=== PATIENT | female | born 1935 | race Caucasian/White ===

== ENCOUNTER → 2017-09-14 | Outpatient (CLI) | payer OTHER ==
[~2017-09-14] MED LIST: AGG PO; ALEN70TA4 PO; ANT25 PO; ASPI81TA28 PO; CHOL2000 PO; CYAN100020 PO; ESCI10TA17 PO; EZET10TA47 PO; FERR325T18 PO; FLUT0.15; HYDR-4079 PO; IPRA1AER2 INH; ISOS120T5 PO; LEVO-14 PO; LORA-741 PO; METO-596 PO; NTRGSL/4 UT; OXYB10TA13 PO; PREG1CAP70 PO; PRT40 PO; RANO500T PO; ROPI2TAB6 PO; ROSU20TA PO
[2017-09-14 12:56] LABS: BASO % 0.2 %; BASO ABS # 0.01 K/uL (0-0.2); EOS % 1.6 %; EOS ABS # 0.07 K/uL (0-0.5); HEMATOCRIT 36.7 % (37-47); HEMOGLOBIN 12.1 g/dL (12.0-16.0); IG# 0.01 K/uL (0.00-0.02); LYMPH % 24.6 %; MEAN CELL VOLUME 88.2 fL (80-100); MEAN CORPUSCULAR HEMOGLOBIN 29.1 pg (25-34); MEAN PLATELET VOLUME 11.5 fL (7.4-10.4); MONO % 9.6 %; MONO ABS # 0.43 K/uL (0.11-0.59); NEUT % 63.8 %; NEUT ABS # 2.85 K/uL (1.4-6.5); PLATELET COUNT 105 K/uL (130-400); RED CELL DISTRIBUTION WIDTH CV 15.3 % (11.5-14.5); RED CELL DISTRIBUTION WIDTH SD 49.2 fL (36.4-46.3); WHITE BLOOD COUNT 4.47 K/uL (4.8-10.8)
[2017-09-14 14:40] LABS: ALBUMIN 3.7 gm/dl (3.4-5.0); ALT/SGPT 21 U/L (12-78); AST/SGOT 12 U/L (15-37); BLOOD UREA NITROGEN 16 mg/dl (7-18); CALCIUM 8.9 mg/dl (8.5-10.1); CARBON DIOXIDE 27 mmol/L (21-32); CREATININE 0.94 mg/dl (0.60-1.20); GLUCOSE 102 mg/dl (70-99); POTASSIUM 4.4 mmol/L (3.5-5.1); SODIUM 139 mmol/L (136-145)
[2017-09-14 14:45] LABS: ALKALINE PHOSPHATASE 72 U/L (45-117); CHOLESTEROL 129 mg/dl (0-200); LDL CHOLESTEROL CALCULATED 45 mg/dl; TOTAL PROTEIN 7.3 gm/dl (6.4-8.2)
== END | disposition home or self-care (01) ==
LOC: C.LABMFLN 09:49
PROVIDERS: ATTEND Family Medicine
DX: L03.90 Cellulitis, unspecified (principal); I10 Essential (primary) hypertension; R07.9 Chest pain, unspecified; E55.9 Vitamin D deficiency, unspecified

== ENCOUNTER 2018-08-13 08:53 | Inpatient (IN) ==
--- NOTE | 2018-08-10 10:17 | Anesthesiology Consultation ---
Date of Service August 10, 2018 Assessment & Plan (1) Encounter for pre-operative examination: Plan: - Cardio= 08/06/18= "No anginal symptoms.. no evidence of heart failure.. no significant contraindications.. can proceed with surgery.. will be intermediate risk for cardiac events." - Check coags AM DOS (to be done AM DOS per surgeon as this was not done with preop testing) - HGB 9.1 on 06/2018 labs; not updated prior to surgery by surgeon (no prior labs for comparison; anemia noted per records)- discussed with Dr. Dudley; at anesthesiologist discretion if recheck CBC AM DOS needed. Chart Review Chart Review: Acceptable Risk for Surgery and Patient NOT seen in Pre Admission Testing History Surgery Operation Date: 08/13/18 10:50 Proposed Procedures p Right Carotid Endarterectomy - Chemo Rodriguez MD Height/Weight Height: 5 ft 1 in Weight: 70.307 kg Allergies Allergy/AdvReac Type Severity Reaction Status Date / Time adhesive Allergy Intermediate REDDENED Verified 08/09/18 12:57 AREA, RASH, ITCHY Medications Home Medications Medication Instructions Recorded Confirmed Last Taken aspirin [Aspir-81] 81 mg PO QAM 08/09/18 08/09/18 Unknown cetirizine 10 mg PO HS 08/09/18 08/09/18 Unknown cholecalciferol (vitamin D3) 2,000 unit PO BID 08/09/18 08/09/18 Unknown [Vitamin D3] cyanocobalamin (vitamin B-12) 1,000 mcg PO QAM 08/09/18 08/09/18 Unknown escitalopram oxalate 10 mg PO QAM 08/09/18 08/09/18 Unknown hydrocodone-acetaminophen 1 tab PO Q6H PRN 08/09/18 08/09/18 Unknown ipratropium-albuterol [Combivent 1 puff INHALATION QID 08/09/18 08/09/18 Unknown Respimat] isosorbide mononitrate 120 mg PO QAM 08/09/18 08/09/18 Unknown metoprolol tartrate 100 mg PO BID 08/09/18 08/09/18 Unknown nitroglycerin [Nitrostat] 0.4 mg SUBLINGUAL UD PRN 08/09/18 08/09/18 Unknown pantoprazole 40 mg PO QAM 08/09/18 08/09/18 Unknown pregabalin [Lyrica] 100 mg PO BID 08/09/18 08/09/18 Unknown rosuvastatin 40 mg PO QAM 08/09/18 08/09/18 Unknown Past Medical History Medical History Anemia CAD (coronary artery disease) S/P BMS TO RCA (2000) Carotid artery stenosis REASON FOR PROCEDURE Chronic back pain WITH B/L LE RADICULOPATHY Chronic kidney disease Chronic obstructive pulmonary disease Depression Diverticular disease S/P PARTIAL COLON RESECTION GERD (gastroesophageal reflux disease) Hiatal hernia History of aortic valve disease S/P TAVR (2016)- MARY 1.2CM2 PER 01/2018 ECHO Hyperlipidemia Hypertension Osteoarthritis Pacemaker DUAL CHAMBER IMPLANTED 2000 (? REPLACEMENT ); [employer] LAST PACER CHECK 07/16/18 Transient ischemic attack (TIA) AT LEAST 1+ YEARS AGO Urinary frequency Past Family History Family History Daughter Family history of diabetes mellitus Past Surgical History Surgical History H/O hand surgery RIGHT FINGER CYSTECTOMY History of appendectomy History of cardiac cath BMS TO RCA (2000) PPM IMPLANTED 2000 (? REPLACEMENT ) History of cholecystectomy History of colon resection PARTIAL RESECTION (? 2/2 DIVERTICULAR DISEASE) History of colonoscopy History of esophagogastroduodenoscopy (EGD) History of heart valve replacement TAVR (2016) History of hysterectomy TOTAL Social History Smoking Status: Former smoker Do You Dip or Chew Tobacco: No Smoking End Date: QUIT MANY YRS AGO Hx Substance Use: No substance use type: does not use Testing Electrocardiogram Date: 08/06/18 A-paced rhythm at 68bpm. Chest X-Ray Date: 07/19/18 Findings: + NAD Mild cardiac enlargement. Mild to moderate size hiatal hernia. Echocardiogram Date: 01/28/18 LVEF 66%. No RWMA. S/P TAVR with corevalve prosthetic valve; mean systolic gradient through TAVR 11mmhg. Peak AV velocity through TAVR 2.14m/s. MARY of TAVR 1.2cm2. No RWMA. Moderate LAE. Mild MR. PASP 27mmhg. Mildly increased cLV wall thickness. Grade I DD. Cardiac Catheterization Date: 09/27/16 "Mild luminal irregularities.. no significant disease" (per 07/2018 cardio office visit note- multiple attempts to obtain official report unsuccessful; did obtain 10/23/16 operative report for TAVR). Other Testing CTA carotid= DYLAN 83% stenosis. LICA 50% stesnosis. 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 Pacer check= 07/16/18= [employer]. Mode DDDR. AP 99%. RVP 37%. 28 months battery longevity. "Normal dual chamber pacemaker function. Stable pacing and sensing thresholds. Adequate battery reserve." No parameter changes made Laboratory Results 07/19/18 WBC 4.85 H/H 9.1/28.0 PLATELETS 131 SODIUM 141 POTASSIUM 4.3 CHLORIDE 108 CO2 24 BUN 16 CREATININE 0.85 GLUCOSE 107
--- NOTE | 2018-08-12 20:58 | History & Physical Report ---
Date of Service August 12, 2018 History of Present Illness Primary Care Provider: Favio Chester DO August 05, 2018 Name: UMESH SADLER [facility] [place]: [id number] : 1935 Date of Service: 08/05/2018 Favio Chester DO [address] [place] [address] Chester: CC: here for Right carotid artery stenosis HPI: Today we had the pleasure of seeing Ms. Sadler in our outpatient vascular surgery clinic. As you are aware, she is an 82-year-old female with multiple comorbidities, but found to have bilateral carotid artery disease with a greater stenosis on the right side. She is here for evaluation of that carotid disease. Upon obtaining history, the patient does report an episode approximately 2 weeks ago of left arm weakness and numbness that lasted for approximately 10 minutes and resolved. This sounds like a TIA. The patient reports that over 10 years ago, she believes that she had TIAs, but is unable to describe exactly what symptoms she had or what she had done or if she had anything done for these episodes. The patient at this time denies any vision changes, any droopiness of the face, has a neuropathy in lower extremities bilaterally ROS: a 10 point review of system is neg except for HPI PMH/PSH: CAD s/p stent, Aortic dze s/p TAVR, peripheral neuropathy. HTN FH: mother of stroke SH: denies tobacoo, etoh, or ilicit drug use. PHYSICAL EXAMINATION: The patient is awake, alert, oriented, follows command, does not appear to be in any distress, appears to be mildly anxious regarding this diagnosis and possible treatment. Lungs are clear to auscultation. Cranial nerves 2 through 12 intact. No focal neuro deficits in upper or lower extremities. The patient does have numbness in feet bilaterally. The patient has 5/5 strength bilaterally upper and lower extremities. IMAGING: The patient underwent a duplex ultrasound, which showed a severe stenosis of the right carotid artery 70-99% with moderate stenosis on the left side, 56%. A/P: In summary, Ms. Sadler is an 82-year-old female with a severe right carotid artery stenosis and a possible TIA. At this time, we have offered the patient a right carotid artery endarterectomy , provided that we were able to get some cardiac clearance from her photographic equipment inspector and we will attempt to reach out to her photographic equipment inspector for an evaluation. We have also recommended that she continue on her statin and aspirin. In the meantime, we will also order a CTA of the neck to better evaluate the anatomy of her carotid arteries. The patient was counseled regarding the operation, the risks and the benefits of it and she agreed to the operation and signed the consent in the office. Our next step would be following up with her CTA of the neck and will discuss with cardiology regarding her ability to undergo the operation and we will schedule her for an operation if we are able to based on all the data obtained from the photographic equipment inspector and the CTA. Dr. Chemo Rodriguez evaluated the patient and agrees with this plan. #[id number] I saw and evaluated the patient. Discussed with the resident and agree with the resident's findings and plan as documented in the resident's note. Signature Line Electronic Signature on File CC: Favio Chester, [address] [id number] * Jimmy Nelson MD Author Signature Dt/Tm: 08/05/2018 12:07 PM Resident Division of Vascular Surgery Electronically Reviewed/Signed by: Saskia Pollack Signature Dt/Tm : 08/09/2018 11:14 AM Crisis Manager Pino Romo [facility] [place], [address] [place] [address] LORELEI /JONATHAN Result Type: .Outpt Ltr Date of Service: August 05, 2018 00:00 EST Authorization Status: Final Subject: Outpatient Letter Author or Import Date: MD Omar, Jimmy Henriquez on August 05, 2018 11:25 EST Verified By: MD Rodriguez Eugene J on August 09, 2018 11:14 EST Encounter info: [id number], [facility], Clinic, 08/05/2018 - 08/05/2018 Contributor system: [id number] Allergies Allergy/AdvReac Type Severity Reaction Status Date / Time adhesive Allergy Intermediate REDDENED Verified 08/09/18 12:57 AREA, RASH, ITCHY Home Medications Home Medications Medication Instructions Recorded Confirmed Type aspirin [Aspir-81] 81 mg PO QAM 08/09/18 08/09/18 History cetirizine 10 mg PO HS 08/09/18 08/09/18 History cholecalciferol (vitamin D3) 2,000 unit PO BID 08/09/18 08/09/18 History [Vitamin D3] cyanocobalamin (vitamin B-12) 1,000 mcg PO QAM 08/09/18 08/09/18 History escitalopram oxalate 10 mg PO QAM 08/09/18 08/09/18 History hydrocodone-acetaminophen 1 tab PO Q6H PRN 08/09/18 08/09/18 History ipratropium-albuterol [Combivent 1 puff INHALATION QID 08/09/18 08/09/18 History Respimat] isosorbide mononitrate 120 mg PO QAM 08/09/18 08/09/18 History metoprolol tartrate 100 mg PO BID 08/09/18 08/09/18 History nitroglycerin [Nitrostat] 0.4 mg SUBLINGUAL UD PRN 08/09/18 08/09/18 History pantoprazole 40 mg PO QAM 08/09/18 08/09/18 History pregabalin [Lyrica] 100 mg PO BID 08/09/18 08/09/18 History rosuvastatin 40 mg PO QAM 08/09/18 08/09/18 History Past Med/Surg History Medical History Anemia CAD (coronary artery disease) S/P BMS TO RCA (2000) Carotid artery stenosis REASON FOR PROCEDURE Chronic back pain WITH B/L LE RADICULOPATHY Chronic kidney disease Chronic obstructive pulmonary disease Depression Diverticular disease S/P PARTIAL COLON RESECTION GERD (gastroesophageal reflux disease) Hiatal hernia History of aortic valve disease S/P TAVR (2016)- MARY 1.2CM2 PER 01/2018 ECHO Hyperlipidemia Hypertension Osteoarthritis Pacemaker DUAL CHAMBER IMPLANTED 2000 (? REPLACEMENT ); [employer] LAST PACER CHECK 07/16/18 Transient ischemic attack (TIA) AT LEAST 1+ YEARS AGO Urinary frequency Surgical History H/O hand surgery RIGHT FINGER CYSTECTOMY History of appendectomy History of cardiac cath BMS TO RCA (2000) PPM IMPLANTED 2000 (? REPLACEMENT ) History of cholecystectomy History of colon resection PARTIAL RESECTION (? 2/2 DIVERTICULAR DISEASE) History of colonoscopy History of esophagogastroduodenoscopy (EGD) History of heart valve replacement TAVR (2016) History of hysterectomy TOTAL Family History Daughter Family history of diabetes mellitus Social History Current Living Situation: Alone Other Information That Helps Us Care for You: No Feels Safe at Home: Yes Safety Concerns: Feels Safe At This Time Smoking Status: Former smoker Do You Dip or Chew Tobacco: No Smoking End Date: QUIT MANY YRS AGO Hx Substance Use: No Beliefs That Will Affect Care: None Preferred Language: Citizen Of [place] Communication Ability: Effective Workforce Management Coordinator Required: No
[~2018-08-13 08:53] MED LIST changes: -AGG PO; -ALEN70TA4 PO; -ANT25 PO; -ASPI81TA28 PO; +CEFAZOLIN 1000MG 1,000 MG/7.5 ML SYR IV SCH; -CHOL2000 PO; -CYAN100020 PO; -ESCI10TA17 PO; -EZET10TA47 PO; -FERR325T18 PO; -FLUT0.15; -HYDR-4079 PO; -IPRA1AER2 INH; -ISOS120T5 PO; -LEVO-14 PO; -LORA-741 PO; +LR 15ML/HR IV SCH; -METO-596 PO; -NTRGSL/4 UT; -OXYB10TA13 PO; -PREG1CAP70 PO; -PRT40 PO; -RANO500T PO; -ROPI2TAB6 PO; -ROSU20TA PO
[2018-08-13 10:16] LABS: INR 1.1 (0.9-1.1); Prothrombin Time 11.1 Seconds (9.0-12.0)
[2018-08-13] MEDS ORDERED: PROPOFOL IV EMULSION 10 MG/ML 20 ML VIAL IV ONE (10:33)
[2018-08-13] MEDS ORDERED: PHENYLEPHRINE HCL 10 MG/ML VIAL ONE ×2 (10:33→10:40)
[2018-08-13] MEDS ORDERED: SUCCINYLCHOLINE CHLORIDE 20 MG/ML 10 ML VIAL ONE (10:33)
[2018-08-13] MEDS ORDERED: ePHEDrine sulfate 50 MG/ML AMP ONE (10:33)
[2018-08-13] MEDS ORDERED: GLYCOPYRROLATE 0.2 MG/ML VIAL ONE (10:33)
[2018-08-13] MEDS ORDERED: DEXAMETHASONE SOD INJ 4 MG/ML VIAL ONE (10:33)
[2018-08-13] MEDS ORDERED: LIDOCAINE HCL 2% 2 ML VIAL/AMP(20MG/ML) INFIL ONE (10:33)
[2018-08-13] MEDS ORDERED: ONDANSETRON INJ 2 MG/ML 2 ML VIAL ONE (10:33)
[2018-08-13] MEDS ORDERED: NEOSTIGMINE METHYLSULFATE 5 MG/5 ML SYR ONE (10:33)
[2018-08-13] MEDS ORDERED: fentaNYL citrate 100 MCG/2 ML VIAL ONE ×2 (10:34→13:56)
[2018-08-13] MEDS ORDERED: NITROGLYCERIN 5 MG/ML 10 ML VIAL ONE (10:40)
[2018-08-13] MEDS ORDERED: HEPARIN SOD (PORCINE) 1000 UNIT/ML 10 ML VIAL ONE (10:40)
[2018-08-13] MEDS ORDERED: ATROPINE SULFATE 0.1 MG/ML 10ML SYR IV PRN (11:36)
[2018-08-13] MEDS ORDERED: ePHEDrine sulfate 50 MG/ML AMP IV PRN (11:36)
[2018-08-13] MEDS ORDERED: ONDANSETRON INJ 2 MG/ML 2 ML VIAL IV PRN (11:36)
--- NOTE | 2018-08-13 11:45 | History & Physical Bridge Note ---
Date of Service August 13, 2018 History & Physical Bridge Note I have examined the patient, reviewed the History & Physical and in the interval since the performance of the History & Physical I have noted the following changes of clinical significance: no changes noted
--- NOTE | 2018-08-13 11:46 | History & Physical Bridge Note ---
Date of Service August 13, 2018 History & Physical Bridge Note CTA confirmed a severe right internal carotid artery stenosis. She is now admitted for a right CEA. I have discussed the risks options and benefits of the procedure with the patient. The patient understands the risks options and benefits and agrees to the procedure. I have examined the patient, reviewed the History & Physical and in the interval since the performance of the History & Physical I have noted the following changes of clinical significance: no changes noted
--- NOTE | 2018-08-13 15:36 | Post Operative Brief Note ---
Immediate Post Op Note v1 Date of Surgery August 13, 2018 Pre & Post Diagnosis Operation Date: 08/13/18 10:50 Pre-Op Diagnosis: Right internal carotid artery stenosis Post-Op Diagnosis: Right internal carotid artery stenosis Procedure Operation Date: 08/13/18 10:50 Actual Procedures p Right Carotid Endarterectomy with patch(Right) - Chemo Rodriguez MD Surgeon Chemo Rodriguez MD Time Stamp Assembler Mariam Nelson MD L Minarchick,PAC Estimated Blood Loss 50 Findings Consistent with Post-Op Diagnosis Anesthesia Type General Complications none Disposition Accompanied Patient To Recovery: No Disposition: Recovery Room
[2018-08-13] MEDS ORDERED: THROMBIN 5000 UNITS KIT TOP SCH (15:45)
[2018-08-13] MEDS ORDERED: BUPIVACAINE/EPINEPHRINE 0.5% MPF 1:200,000 10 ML VIAL INFIL ONE (15:51)
[2018-08-13] MEDS ORDERED: HEPARIN SODIUM IV ONE (16:00)
--- NOTE | 2018-08-13 16:08 | Operative Report ---
Post Operative Report Pre & Post Diagnosis Operation Date: 08/13/18 10:50 Pre-Op Diagnosis: Right internal carotid artery stenosis Post-Op Diagnosis: Right internal carotid artery stenosis Procedure Operation Date: 08/13/18 10:50 Actual Procedures p Right Carotid Endarterectomy(Right) - Chemo Rodriguez MD Surgeon Dr. Michael Nelson MD Crate Maker Mariam Nelson MD L Minarchcharlie,PAC Estimated Blood Loss 50 Findings See Below Patient had inflammatory changes around the carotid bulb right side.At the end of the case the patient was neurologically intact. Specimens Right carotid plaque Drains None Anesthesia Type General Complications none Disposition Accompanied Patient To Recovery: Yes Disposition: Recovery Room Indications Symptomatic right carotid artery stenosis. Description of Procedure The patient was brought to the operating room, where an arterial line was placed and general anesthesia was secured. The Right neck was prepped and sterilely draped. An oblique incision was made along the anterior border of the right sternocleidomastoid muscle. The platysma was divided and dissection was carried down to the carotid sheath. The facial vein was doubly ligated and divided exposing the carotid bifurcation. There is significant amount of inflammation at the carotid bulb sharp dissection was carried on. The external carotid was overlying the internal carotid and ligation of the superior thyroid artery was completed to allow us mobilization of the carotid bulb. The bulb was then rotated medially allowing us access to the posterior wall of the carotid artery and bulb. The hypoglossal nerve was identified and protected. The vagus nerve and XII nerve were identified and kept free from dissection and retraction. The internal, external, and common carotid arteries were dissected free proximally and distally. 7000 U of Heparin was given intravenously. The external carotid Was encircled with a vessel loop. Once the heparin was allowed to circulate for approximately 5 minutes, clamps were placed starting with the internal carotid and common carotid and external carotid. An anterior arteriotomy was made on the common carotid artery using an 11 blade. Sexton scissors was used to extend the arteriotomy through the plaque on to the distal soft internal carotid artery. The plaque was heavily calcified, ulcerated, and nearly occlusive. A shunt was then inserted into the into the internal carotid artery and revealed good backbleeding. The proximal end of the shunt was then inserted into the common carotid artery and secured in place. The Doppler attached to the shunt was turned on and revealed good flow through the shunt. A [place] elevator was used to create an endarterectomy plane. The proximal endpoint was created using Sexton scissors as well as a distal endpoint was created with the Sexton scissors. The plaque was freed out of the external carotid artery.With downward retraction on the plaque, a smooth distal endpoint was created. All debris was meticulously debrided from the inside of the lumen and confirmed with instillation of heparinized saline. Once endarterectomy was completed, a Bovine pericardial patch was then cut to the appropriate size and sewn into internal carotid artery using a 6-0 Prolene suture starting at the internal carotid artery corner of the arteriotomy. Before the patch was completed, the shunt was pulled and all the arteries were backbleed extruding any air and debris. The patch was then completed. The external carotid clamp was removed first, followed by the common carotid artery clamp, and finally the internal carotid artery clamp, restoring blood flow to the brain. Patient did have some oozingAt the proximal end of the patch and one 6-0 Prolene sutures were used to achieve hemostasis as well as thrombin soaked gel foam. Meticulous hemostasis was secured. The wound was then closed in multiple layers using 3-0 Vicryl suture then a 4-0 Vicryl subcutaneous layer closing the skin. Local anesthetic was injected in the wound prior to closure. Dermabond was applied over the incision. The patient tolerated the procedure well and was extubated on table. The patient was moving all four extremities to command prior to and upon transfer to the recovery room. Dr. Rodriguez was present and scrubbed for the entirety of the case. I attest to the content of the Intraoperative Record and any orders documented therein. Any exceptions are noted below.
[2018-08-13] MEDS: fentaNYL citrate 100 MCG/2 ML VIAL IV PRN ×4 (16:27→17:07)
--- NOTE | 2018-08-13 17:45 | Anesthesiology Progress Note ---
Date of Service August 13, 2018 Anesthesia Post Procedure Vital Signs Vital Signs: Temp Pulse Pulse Resp BP Pulse Ox 08/13/18 17:40 60 16 108/56 L 95 08/13/18 17:20 62 16 146/68 H 95 08/13/18 17:10 36.9 C 64 16 168/74 H 95 08/13/18 17:00 60 16 172/64 H 94 08/13/18 16:50 60 19 150/75 H 99 08/13/18 16:40 60 19 162/63 H 99 08/13/18 16:30 60 18 118/55 L 99 08/13/18 16:20 60 18 124/52 L 99 08/13/18 16:13 36.1 C L 61 16 133/55 L 99 08/13/18 09:49 36.7 C 62 18 181/89 H 98 Pain Intensity Right Neck: Pain Intensity: 3 Notes Mental Status: alert / awake / arousable and participated in evaluation Patient Amnestic to Procedure: Yes Nausea / Vomiting: adequately controlled Pain: adequately controlled Airway Patency, RR, SpO2: stable & adequate BP & HR: stable & adequate Hydration State: stable & adequate Anesthetic Complications: no major complications apparent and Pt Satisfied with anesthetic care
[2018-08-13] MEDS ORDERED: NITROGLYCERIN SL 0.4 MG/TAB TAB SL PRN (18:02)
[2018-08-13] MEDS: D5W AND 1/2NSS 1,000 ML IV SCH (18:22)
--- NOTE | 2018-08-13 18:46 | Critical Care Consultation ---
Date of Consultation August 13, 2018 Assessment & Plan (1) CAD (coronary artery disease): (2) Carotid stenosis, bilateral: 82yoF with hx of HTN, CAD w/t stent placement, TAVR with prosthetic valve , dual chamber pacemaker - sinoatrial node dysfunction, peripheral neuropathy, and depression admitted to the ICU s/p R carotid endarterectomy with patch by Dr. oRdriguez, 08/13/18. NEURO: alert and oriented Hx of depression and peripheral neuropathy CAM ICU: negative Pain Rx: [place] and morphine prn Continue home lexapro and lyrica CARDIAC/VASCULAR: R ICA stenosis s/p carotid endarterectomy with patch on PMhx: HTN, CAD w/t stent placement, TAVR with prosthetic valve, dual chamber pacemaker - sinoatrial node dysfunction EKG pre-op: 64 atrial paced QTc 411 ECHO 01/28/18: EF 66%. No wall motion abnl, mild concentric LVH, moderate LA enlargement, mild MV regurg CTA neck: R-ICA 83% stenosis, L-ICA <50% stenosis Continue home isosorbide mononitrate, metoprolol, crestor and aspirin Not on anticoagulation per record for prosthetic valve PULM: On 3L NC CXR 07/19/18: no acute abnl, mild cardiac enlargement, mild-moderate hiatal hernia Continue home albuterol 1 puff QID GI: Clear HH diet Continue home vit D, B12 and protonix RENAL/LYTES: BMP 07/19/18 wnl On D51/2NS at 125mls/hr : Wood in place ENDO: No hx of diabetes or thryroid disease HEME: Hx of anemia Hgb 9.1 on 07/19 Coags wnl Repeat CBC ordered ID: No concern for infection at this time Received Ancef during surgery CBC ordered LINES: PIVs x 3 Code Full Dispo: pending clinical improvement (3) Chronic anemia: (4) GERD (gastroesophageal reflux disease): (5) HTN (hypertension): (6) History of TIA (transient ischemic attack): (7) History of pacemaker: (8) Stented coronary artery: (9) Hiatal hernia: History of Present Illness Attending Physician: Chemo Rodriguez MD 82yoF with hx of HTN, CAD w/t stent placement, TAVR with prosthetic valve, dual chamber pacemaker - sinoatrial node dysfunction, peripheral neuropathy admitted to the ICU s/p R carotid endarterectomy with patch by Dr. Rodriguez today. Patient is complaining of neck pain, headache, dizziness and sob at this time. Otherwise denies any cp, n/v, abdominal pain. Allergies Allergy/AdvReac Type Severity Reaction Status Date / Time No Known Allergies Allergy Unverified 08/13/18 09:43 Home Medications Home Medications Medication Instructions Recorded Confirmed Type aspirin [Aspir-81] 81 mg PO QAM 08/09/18 08/13/18 History cetirizine 10 mg PO HS 08/09/18 08/13/18 History cholecalciferol (vitamin D3) 2,000 unit PO BID 08/09/18 08/13/18 History [Vitamin D3] cyanocobalamin (vitamin B-12) 1,000 mcg PO QAM 08/09/18 08/13/18 History escitalopram oxalate 10 mg PO QAM 08/09/18 08/13/18 History hydrocodone-acetaminophen 1 tab PO Q6H PRN 08/09/18 08/13/18 History ipratropium-albuterol [Combivent 1 puff INHALATION QID 08/09/18 08/13/18 History Respimat] isosorbide mononitrate 120 mg PO QAM 08/09/18 08/13/18 History metoprolol tartrate 100 mg PO BID 08/09/18 08/13/18 History nitroglycerin [Nitrostat] 0.4 mg SUBLINGUAL UD PRN 08/09/18 08/13/18 History pantoprazole 40 mg PO QAM 08/09/18 08/13/18 History pregabalin [Lyrica] 100 mg PO BID 08/09/18 08/13/18 History rosuvastatin 40 mg PO QAM 08/09/18 08/13/18 History Patient History Medical History Chronic obstructive pulmonary disease Hyperlipidemia Hypertension Pacemaker DUAL CHAMBER IMPLANTED 2000 (? REPLACEMENT ); [employer] LAST PACER CHECK 07/16/18 Transient ischemic attack (TIA) AT LEAST 1+ YEARS AGO pt states she had the most recent TIA last Depression Diverticular disease S/P PARTIAL COLON RESECTION GERD (gastroesophageal reflux disease) Hiatal hernia Urinary frequency Chronic kidney disease Chronic back pain WITH B/L LE RADICULOPATHY Osteoarthritis Anemia History of aortic valve disease S/P TAVR (2016)- MARY 1.2CM2 PER 01/2018 ECHO CAD (coronary artery disease) S/P BMS TO RCA (2000) Carotid artery stenosis REASON FOR PROCEDURE Surgical History History of cardiac cath BMS TO RCA (2000) PPM IMPLANTED 2000 (? REPLACEMENT ) History of heart valve replacement TAVR (2016) History of appendectomy History of colonoscopy History of esophagogastroduodenoscopy (EGD) H/O hand surgery RIGHT FINGER CYSTECTOMY History of hysterectomy TOTAL History of cholecystectomy History of colon resection PARTIAL RESECTION (? 2/2 DIVERTICULAR DISEASE) Family History Daughter Family history of diabetes mellitus Social History Current Living Situation: Alone Other Information That Helps Us Care for You: No Feels Safe at Home: Yes Safety Concerns: Feels Safe At This Time Smoking Status: Former smoker Do You Dip or Chew Tobacco: No Smoking End Date: QUIT MANY YRS AGO Hx Substance Use: No Beliefs That Will Affect Care: None Preferred Language: Urdu Communication Ability: Effective Mental Health Specialist Required: No Review of Systems As per HPI Physical Exam 2 Vital Signs (Past 24 Hours): Last Vital Signs Temp 36.9 C 08/13/18 17:10 Pulse 60 08/13/18 17:40 Resp 16 08/13/18 17:40 BP 108/56 L 08/13/18 17:40 Pulse Ox 95 08/13/18 17:40 Physical Exam: General: In mild distress due to post op pain Neuro: Alert and oriented x 3 CV: RRR, no m/r/g Pulm: CTAB, equal breath sounds bilaterally Abdomen: +BS, non-distended, non-tender to palpation in all quadrants LE: No LE edema, or calf tenderness to palpation Results & Data Medications Administered Current Inpatient Medications Hydrocodone Bitart/Acetaminophen ([place] 10/325) 1 tab PO Q6H PRN PRN Reason: Pain Stop: 08/27/18 18:01 Albuterol (Combivent Respimat) 1 puffs INH QID [facility] Stop: 09/12/18 18:01 Aspirin (Ecotrin Ectab) 81 mg PO QAM [facility] Stop: 09/13/18 08:59 Cetirizine HCl (Zyrtec) 10 mg PO HS [facility] Stop: 09/12/18 20:59 Cyanocobalamin (Vitamin B-12) 1,000 mcg PO QAM [facility] Stop: 09/13/18 08:59 Escitalopram Oxalate (Lexapro) 10 mg PO QAM [facility] Stop: 09/13/18 08:59 Dextrose/Sodium Chloride (D5w And 1/2nss) 1,000 mls @ 125 mls/hr IV .Q8H [facility] Stop: 09/12/18 18:14 Last Admin: 08/13/18 18:22 Dose: 125 mls/hr Cefazolin Sodium (Ancef 1000mg) 1,000 mg in 7.5 mls @ 2.5 mls/min IV Q8H [facility]; Protocol Stop: 08/14/18 05:02 Isosorbide Mononitrate (Imdur Extended Rel) 120 mg PO QAM [facility] Stop: 09/13/18 08:59 Metoprolol Tartrate (Lopressor) 100 mg PO BID [facility] Stop: 09/12/18 20:59 Morphine Sulfate (Morphine Sulfate) 1 - 4 mg IV Q2H PRN PRN Reason: Severe Pain Stop: 08/27/18 18:01 Nitroglycerin (Nitrostat) 0.4 mg SL UD PRN PRN Reason: Chest Pain Stop: 09/12/18 18:01 Pantoprazole Sodium (Protonix) 40 mg PO QAM [facility] Stop: 09/13/18 08:59 Pregabalin (Lyrica) 100 mg PO BID [facility] Stop: 09/12/18 20:59 Rosuvastatin Calcium (Crestor) 40 mg PO QAM [facility] Stop: 09/13/18 08:59 Thrombin (Recothrom Kit) 1 units TOP ONCE [facility] Stop: 09/12/18 15:44 Last Admin: 08/13/18 15:47 Dose: 1 units Vitamin D (Vitamin D3) 2,000 units PO BID [facility] Stop: 09/12/18 20:59 Resident Activity Tracking Resident Involvement: Resident Care Provided Care Provided: Adult Hospital Medicine
[2018-08-13 19:49] LABS: Hemoglobin 8.3 g/dL (12.0-16.0); Mean Corpuscular Hgb Conc 31.9 g/dL (32-36); Mean Corpuscular Volume 85.5 fL (80-100); RDW Coefficient of Variation 15.8 % (11.5-14.5); RDW Standard Deviation 49.2 fL (36.4-46.3); Red Blood Count 3.04 M/uL (4.2-5.4); White Blood Count 4.93 K/uL (4.8-10.8)
[2018-08-13 20:06] LABS: Calcium 8.3 mg/dl (8.5-10.1); Creatinine Clr Calc Pharmacy 40.2 ml/min; Est GFR (African American) 62.9; Est GFR (Non-African American) 54.3; Potassium 4.4 mmol/L (3.5-5.1)
[2018-08-13 20:17] LABS: Eosinophils # (auto) 0.09 K/uL (0-0.5); Eosinophils % (auto) 1.8 %; Lymphocytes # (auto) 0.95 K/uL (1.2-3.4); Lymphocytes % (auto) 19.3 %; Mean Platelet Volume 11.7 fL (7.4-10.4); Monocytes # (auto) 0.36 K/uL (0.11-0.59); Monocytes % (auto) 7.3 %; Neutrophils # (auto) 3.53 K/uL (1.4-6.5); Neutrophils % (auto) 71.6 %; Platelet Count 94 K/uL (130-400); Polychromasia 1+
[2018-08-13] MEDS: MoRPHine SULFATE 4 MG/ML 1 ML CARP\\VIAL IV PRN ×2 (20:30→23:55)
[2018-08-13] MEDS: CEFAZOLIN 1000MG 1,000 MG/7.5 ML SYR IV SCH (20:32)
[2018-08-13] MEDS: IPRATROPIUM BROMIDE/ALBUTEROL respimat INH INH SCH ×2 (20:33→21:32)
[2018-08-13] MEDS: METOPROLOL TARTRATE 100 MG TAB PO SCH ×2 (20:33→23:49)
[2018-08-13] MEDS: CHOLECALCIFEROL 1,000 UNITS TAB PO SCH (20:34)
[2018-08-13] MEDS: CETIRIZINE HCL 10 MG TABLET PO SCH (20:34)
[2018-08-13] MEDS: PREGABALIN 100 MG CAP PO SCH (20:34)
[2018-08-14] MEDS: MoRPHine SULFATE 4 MG/ML 1 ML CARP\\VIAL IV PRN ×2 (02:30→04:41)
[2018-08-14] MEDS: CEFAZOLIN 1000MG 1,000 MG/7.5 ML SYR IV SCH (04:42)
[2018-08-14 05:05] LABS: Hematocrit (blood only) 28.3 % (37-47); Hemoglobin 8.9 g/dL (12.0-16.0); Mean Corpuscular Hgb Conc 31.4 g/dL (32-36); Mean Corpuscular Volume 85.2 fL (80-100); RDW Coefficient of Variation 16.2 % (11.5-14.5); RDW Standard Deviation 50.8 fL (36.4-46.3); Red Blood Count 3.32 M/uL (4.2-5.4)
[2018-08-14 05:09] LABS: Mean Platelet Volume 11.7 fL (7.4-10.4); Platelet Count 99 K/uL (130-400)
[2018-08-14 05:34] LABS: BUN Creatinine Ratio 11.6 (10-20); Est GFR (African American) 60.6; Est GFR (Non-African American) 52.3; Magnesium 1.6 mg/dl (1.8-2.4); Phosphorus 4.5 mg/dl (2.5-4.9); Potassium 4.6 mmol/L (3.5-5.1)
[2018-08-14] MEDS ORDERED: ACETAMINOPHEN 325 MG TAB PO STA (05:43)
[2018-08-14 05:48] LABS: Eosinophils # (auto) 0.04 K/uL (0-0.5); Immature Granulocytes # (auto) 0.01 K/uL (0.00-0.02); Immature Granulocytes % (auto) 0.3 %; Lymphocytes # (auto) 0.56 K/uL (1.2-3.4); Monocytes % (auto) 7.5 %; Neutrophils # (auto) 3.09 K/uL (1.4-6.5); Neutrophils % (auto) 77.2 %; Ovalocytes 1+; Polychromasia 1+
[2018-08-14] MEDS: D5W AND 1/2NSS 1,000 ML IV SCH ×3 (05:54→18:31)
[2018-08-14] MEDS: IPRATROPIUM BROMIDE/ALBUTEROL respimat INH INH SCH ×4 (07:41→20:46)
[2018-08-14] MEDS: ISOSORBIDE MONO EXTENDED REL 60 MG TABCR PO SCH (07:42)
[2018-08-14] MEDS: ROSUVASTATIN CALCIUM 20 MG TAB PO SCH (07:42)
[2018-08-14] MEDS: ASPIRIN 81 MG ECTAB PO SCH (07:42)
[2018-08-14] MEDS: METOPROLOL TARTRATE 100 MG TAB PO SCH (07:43)
[2018-08-14] MEDS: ESCITALOPRAM OXALATE 10 MG TAB PO SCH (07:43)
[2018-08-14] MEDS: PANTOprazole 40 MG TAB PO SCH (07:43)
[2018-08-14] MEDS: CYANOCOBALAMIN 500 MCG TABLET (VITAMIN B-12) PO SCH (07:43)
[2018-08-14] MEDS: CHOLECALCIFEROL 1,000 UNITS TAB PO SCH ×2 (07:44→20:49)
[2018-08-14] MEDS: PREGABALIN 100 MG CAP PO SCH ×2 (07:45→20:48)
[2018-08-14] MEDS: MAGNESIUM SULFATE / D5W 1 GM/100 ML BAG IV SCH ×2 (07:46→08:59)
--- NOTE | 2018-08-14 08:05 | Critical Care Progress Note ---
Date of Service August 14, 2018 Assessment & Plan (1) CAD (coronary artery disease): (2) Carotid stenosis, bilateral: 82yoF with hx of HTN, HLD, CAD w/t stent placement in RCA in 2000 (per cath in 2011 still patent), TAVR with bioprosthetic valve, dual chamber pacemaker - sinoatrial node dysfunction, chronic anemia, CKD3, GERD, hiatal hernia, peripheral neuropathy, anxiety and depression admitted to the ICU for observation s/p R carotid endarterectomy with patch by Dr. Rodriguez, 08/13/18. NEURO: alert and oriented Hx of depression/anxiety and peripheral neuropathy CAM ICU: negative Pain Rx: [place] and morphine prn Continue home lexapro and lyrica CARDIAC/VASCULAR: R ICA stenosis s/p carotid endarterectomy with patch on - BP improved PMhx: HTN, HLD, CAD w/t stent placement in RCA in 2000 (per cath in 2011 still patent), TAVR with bioprosthetic valve, dual chamber pacemaker - sinoatrial node dysfunction EKG pre-op: 64 atrial paced QTc 411 ECHO 01/28/18: EF 66%. No wall motion abnl, mild concentric LVH, moderate LA enlargement, mild MV regurg CTA neck: R-ICA 83% stenosis, L-ICA <50% stenosis Lipid profile 07/19/18: triglyceride 138, total 147, LDL 79, HDL 40 Continue home isosorbide mononitrate, crestor and aspirin Given hypotensive hold metoprolol evening dose On IVF D51/2NS at 125mls/hr PULM: On 2L NC Not on oxygen at home CXR 07/19/18: no acute abnl, mild cardiac enlargement, mild-moderate hiatal hernia Continue home albuterol 1 puff QID GI: Clear HH diet Continue home vit D, B12 and protonix RENAL/LYTES: PMHx: CKD3 BUN/Cr 11/0.99, GFR 39 Electrolytes: Mag 1.6 - repleted with 2g mag sulfate this AM On D51/2NS at 125mls/hr : No clarke ENDO: No hx of diabetes or thryroid disease HEME: Hx of chronic anemia - possible anemia of chronic disease given hx of CKD vs. iron def (limited work up in the past) Hgb 8.9 (baseline around 9) MCV 85 Folate 39.7 in 09/14/17 B12 1914 in 09/17/15 No iron panel checked per records Plt ct 99 Coags wnl Recommend outpt follow up for further anemia work up Follow CBC ID: No concern for infection at this time. Temp of 38 likely acute post op fever WBC 4 Nasal MRSA negative Received Ancef during surgery Follow CBC LINES: PIVs x 3 Code Full Dispo: per surgeon (3) Chronic anemia: (4) GERD (gastroesophageal reflux disease): (5) HTN (hypertension): (6) History of TIA (transient ischemic attack): (7) History of pacemaker: (8) Stented coronary artery: (9) Hiatal hernia: Supervising Physician Co-Signing Physician Notes Dr. Trimble was resident physician during care of patient. I separately evaluated patient for iqbal portions of the history and the exam. I was present during the critical portion of medical decision making, and I discussed the case with the resident. I generally agree with the findings and plan. Blood pressure improved, dispo per vascular surgery no critical care issues. Subjective This AM pt reports improved MCCARTY/dizziness and nausea. Having some R sided neck pain post surgery. Denies any cp, sob, n/v, abdominal pain, dysuria. Has been able to get up and use the restroom. Febrile to 38 this AM around 5am. HD stable. Diastolic BP occasionally in the 40s range. MAP > 60. HR 60s-70s. Physical Exam 2 Vital Signs (Past 24 Hours): Last Vital Signs Temp 38.0 C H 08/14/18 05:15 Pulse 71 08/14/18 05:30 Resp 13 08/14/18 05:30 BP 118/57 L 08/14/18 04:01 Pulse Ox 94 08/14/18 05:30 Physical Exam: General: In NAD, resting in bed and pleasant Neuro: Alert and oriented x 4 Neck: R sided neck surgical incision site (s/p carotid endarterectomy with patch ) - ecchymotic with moderate edema, soft and mildly TTP CV: RRR, no m/r/g Pulm: CTAB, equal breath sounds bilaterally Abdomen: +BS, non-distended, non-tender to palpation in all quadrants LE: No LE edema, or calf tenderness to palpation Results & Data Laboratory Results Abnormal lab results 08/13/18 08/13/18 08/14/18 Range/Units 19:40 19:40 04:41 WBC 4.00 L (4.8-10.8) K/uL RBC 3.04 L 3.32 L (4.2-5.4) M/uL Hgb 8.3 L 8.9 L (12.0-16.0) g/dL Hct 26.0 L 28.3 L (37-47) % MCHC 31.9 L 31.4 L (32-36) g/dL RDW Std Deviation 49.2 H 50.8 H (36.4-46.3) fL RDW Coeff of Beatriz 15.8 H 16.2 H (11.5-14.5) % Plt Count 94 L 99 L (130-400) K/uL MPV 11.7 H 11.7 H (7.4-10.4) fL Lymph # (Auto) 0.95 L 0.56 L (1.2-3.4) K/uL Chloride 111 H (98-107) mmol/L Glucose 141 H (70-99) mg/dl Calcium 8.3 L (8.5-10.1) mg/dl Magnesium (1.8-2.4) mg/dl 08/14/18 Range/Units 04:41 WBC (4.8-10.8) K/uL RBC (4.2-5.4) M/uL Hgb (12.0-16.0) g/dL Hct (37-47) % MCHC (32-36) g/dL RDW Std Deviation (36.4-46.3) fL RDW Coeff of Beatriz (11.5-14.5) % Plt Count (130-400) K/uL MPV (7.4-10.4) fL Lymph # (Auto) (1.2-3.4) K/uL Chloride 109 H (98-107) mmol/L Glucose 128 H (70-99) mg/dl Calcium 8.0 L (8.5-10.1) mg/dl Magnesium 1.6 L (1.8-2.4) mg/dl Medications Administered Current Inpatient Medications Hydrocodone Bitart/Acetaminophen ([place] 10/325) 1 tab PO Q6H PRN PRN Reason: Pain Stop: 08/27/18 18:01 Albuterol (Combivent Respimat) 1 puffs INH QID [facility] Stop: 09/12/18 18:01 Last Admin: 08/14/18 07:41 Dose: 1 puffs Aspirin (Ecotrin Ectab) 81 mg PO QAM [facility] Stop: 09/13/18 08:59 Last Admin: 08/14/18 07:42 Dose: 81 mg Cetirizine HCl (Zyrtec) 10 mg PO HS [facility] Stop: 09/12/18 20:59 Last Admin: 08/13/18 20:34 Dose: Not Given Cyanocobalamin (Vitamin B-12) 1,000 mcg [facility] [place] [place] Stop: 09/13/18 08:59 Last Admin: 08/14/18 07:43 Dose: 1,000 mcg Escitalopram Oxalate (Lexapro) 10 mg PO [facility] Stop: 09/13/18 08:59 Last Admin: 08/14/18 07:43 Dose: 10 mg Dextrose/Sodium Chloride (D5w And 1/2nss) 1,000 mls @ 125 mls/hr IV .Q8H [facility] Stop: 09/12/18 18:14 Last Admin: 08/14/18 05:54 Dose: Not Given Magnesium Sulfate/Dextrose (Magnesium Sulfate / D5w) 1 gm in 100 mls @ 100 mls/ hr IV Q1H [facility] Stop: 08/14/18 09:44 Last Admin: 08/14/18 07:46 Dose: 100 mls/hr Isosorbide Mononitrate (Imdur Extended Rel) 120 mg PO [facility] Stop: 09/13/18 08:59 Last Admin: 08/14/18 07:42 Dose: 120 mg Metoprolol Tartrate (Lopressor) 100 mg PO BID [facility] Stop: 09/12/18 20:59 Last Admin: 08/14/18 07:43 Dose: 100 mg Morphine Sulfate (Morphine Sulfate) 1 - 4 mg IV Q2H PRN PRN Reason: Severe Pain Stop: 08/27/18 18:01 Last Admin: 08/14/18 04:41 Dose: 4 mg Nitroglycerin (Nitrostat) 0.4 mg SL UD PRN PRN Reason: Chest Pain Stop: 09/12/18 18:01 Pantoprazole Sodium (Protonix) 40 mg PO [facility] Stop: 09/13/18 08:59 Last Admin: 08/14/18 07:43 Dose: 40 mg Pregabalin (Lyrica) 100 mg PO BID [facility] Stop: 09/12/18 20:59 Last Admin: 08/14/18 07:45 Dose: 100 mg Rosuvastatin Calcium (Crestor) 40 mg PO QAM [facility] Stop: 09/13/18 08:59 Last Admin: 08/14/18 07:42 Dose: 40 mg Thrombin (Recothrom Kit) 1 units TOP ONCE [facility] Stop: 09/12/18 15:44 Last Admin: 08/13/18 15:47 Dose: 1 units Vitamin D (Vitamin D3) 2,000 units PO BID [facility] Stop: 09/12/18 20:59 Last Admin: 08/14/18 07:44 Dose: 2,000 units Resident Activity Tracking Resident Involvement: Resident Care Provided Care Provided: Adult Hospital Medicine
--- NOTE | 2018-08-14 08:33 | Anesthesiology Progress Note ---
Date of Service August 14, 2018 Anesthesia Post Procedure Vital Signs Vital Signs: Temp Pulse Pulse Pulse Resp BP BP 08/14/18 08:02 37.6 C H 69 27 H 96/42 L 08/14/18 08:00 69 22 08/14/18 07:30 67 13 08/14/18 07:01 67 18 95/43 L 08/14/18 07:00 66 16 08/14/18 05:30 71 13 08/14/18 05:15 38.0 C H 73 14 08/14/18 05:00 72 15 08/14/18 04:45 75 12 08/14/18 04:30 65 15 08/14/18 04:15 67 13 08/14/18 04:01 66 15 118/57 L 08/14/18 04:00 66 15 08/14/18 03:45 61 10 L 08/14/18 03:30 65 17 08/14/18 03:15 67 15 08/14/18 03:01 61 15 100/43 L 08/14/18 03:00 63 10 L 08/14/18 02:45 61 14 08/14/18 02:30 79 25 H 08/14/18 02:15 60 20 08/14/18 02:01 60 11 L 129/48 L 08/14/18 02:00 60 12 08/14/18 01:45 60 14 08/14/18 01:30 67 12 08/14/18 01:15 60 15 08/14/18 01:01 60 9 L 109/52 L 08/14/18 01:00 62 14 08/14/18 00:45 60 12 08/14/18 00:30 60 8 L 08/14/18 00:16 68 19 168/72 H 08/14/18 00:15 37.2 C 68 18 08/14/18 00:00 60 16 08/13/18 23:45 60 14 08/13/18 23:30 60 13 08/13/18 23:15 60 17 08/13/18 23:01 60 12 144/52 H 08/13/18 23:00 60 13 08/13/18 22:45 60 10 L 08/13/18 22:30 60 13 08/13/18 22:15 60 12 08/13/18 22:01 61 10 L 117/47 L 08/13/18 22:00 63 10 L 08/13/18 21:45 60 12 08/13/18 21:30 60 15 08/13/18 21:15 60 13 08/13/18 21:01 60 13 130/46 L 08/13/18 21:00 60 12 08/13/18 20:45 63 16 08/13/18 20:30 60 15 08/13/18 20:15 60 14 08/13/18 20:01 60 12 108/46 L 08/13/18 20:00 36.5 C 60 13 08/13/18 19:45 60 12 08/13/18 19:30 60 12 08/13/18 19:15 60 14 08/13/18 19:01 62 12 125/52 L 08/13/18 19:00 62 13 125/52 L 08/13/18 18:45 60 12 08/13/18 18:30 60 14 08/13/18 18:15 60 9 L 08/13/18 18:00 37 C 60 16 143/54 H 08/13/18 17:40 60 16 108/56 L 08/13/18 17:20 62 16 146/68 H 08/13/18 17:10 36.9 C 64 16 168/74 H 08/13/18 17:00 60 16 172/64 H 08/13/18 16:50 60 19 150/75 H 08/13/18 16:40 60 19 162/63 H 08/13/18 16:30 60 18 118/55 L 08/13/18 16:20 60 18 124/52 L 08/13/18 16:13 36.1 C L 61 16 133/55 L 08/13/18 09:49 36.7 C 62 18 181/89 H Pulse Ox 08/14/18 08:02 94 08/14/18 08:00 97 08/14/18 07:30 94 08/14/18 07:01 93 08/14/18 07:00 94 08/14/18 05:30 94 08/14/18 05:15 96 08/14/18 05:00 97 08/14/18 04:45 95 08/14/18 04:30 92 08/14/18 04:15 93 08/14/18 04:01 94 08/14/18 04:00 94 08/14/18 03:45 96 08/14/18 03:30 96 08/14/18 03:15 94 08/14/18 03:01 96 08/14/18 03:00 94 08/14/18 02:45 96 08/14/18 02:30 95 08/14/18 02:15 96 08/14/18 02:01 96 08/14/18 02:00 96 08/14/18 01:45 96 08/14/18 01:30 95 08/14/18 01:15 95 08/14/18 01:01 94 08/14/18 01:00 93 08/14/18 00:45 95 08/14/18 00:30 93 08/14/18 00:16 95 08/14/18 00:15 95 08/14/18 00:00 97 08/13/18 23:45 97 08/13/18 23:30 96 08/13/18 23:15 97 08/13/18 23:01 96 08/13/18 23:00 97 08/13/18 22:45 95 08/13/18 22:30 95 08/13/18 22:15 96 08/13/18 22:01 95 08/13/18 22:00 95 08/13/18 21:45 95 08/13/18 21:30 95 08/13/18 21:15 95 08/13/18 21:01 96 08/13/18 21:00 97 08/13/18 20:45 98 08/13/18 20:30 98 08/13/18 20:15 96 08/13/18 20:01 94 08/13/18 20:00 96 08/13/18 19:45 97 08/13/18 19:30 95 08/13/18 19:15 96 08/13/18 19:01 94 08/13/18 19:00 93 08/13/18 18:45 94 08/13/18 18:30 98 08/13/18 18:15 94 08/13/18 18:00 94 08/13/18 17:40 95 08/13/18 17:20 95 08/13/18 17:10 95 08/13/18 17:00 94 08/13/18 16:50 99 08/13/18 16:40 99 08/13/18 16:30 99 08/13/18 16:20 99 08/13/18 16:13 99 08/13/18 09:49 98 Notes Mental Status: alert / awake / arousable Patient Amnestic to Procedure: Yes Nausea / Vomiting: adequately controlled Pain: adequately controlled Airway Patency, RR, SpO2: stable & adequate BP & HR: stable & adequate Hydration State: stable & adequate Anesthetic Complications: no major complications apparent and Pt Satisfied with anesthetic care
--- NOTE | 2018-08-14 10:06 | Surgery Progress Note ---
Date of Service August 14, 2018 Assessment & Plan (1) S/P carotid endarterectomy: Other than her desaturation when off oxygen this patient is doing well postop carotid in neurectomy. We will transfer to the PCU for observation due to her hypoxia off oxygen. Subjective This is a postoperative day 1. This patient is complaining of slight pain in the right side of her neck along the incision line. She denies any swallowing difficulty. She denies any focal neurological deficits. Physical Exam 2 Vital Signs (Past 24 Hours): Last Vital Signs Temp 37.6 C H 08/14/18 08:02 Pulse 69 08/14/18 08:02 Resp 27 H 08/14/18 08:02 BP 96/42 L 08/14/18 08:02 Pulse Ox 94 08/14/18 08:02 On exam she is awake and alert. Vital signs are as above. Neck incision is dry and clean there is mild ecchymosis and mild swelling in the right-sided neck. Neurologic exam shows no focal deficits. She has good motor strength and sensation. Her tongue is midline. She does have a problem with low oxygen saturations when off oxygen.
[2018-08-14] MEDS: HYDROCODONE/ACETAMINOPHEN 10/325 TAB PO PRN ×2 (15:27→20:48)
[2018-08-14] MEDS: CETIRIZINE HCL 10 MG TABLET PO SCH (20:48)
[2018-08-15] MEDS: D5W AND 1/2NSS 1,000 ML IV SCH (02:31)
[2018-08-15 06:51] LABS: Hematocrit (blood only) 24.5 % (37-47); Hemoglobin 7.9 g/dL (12.0-16.0); Mean Corpuscular Hgb Conc 32.2 g/dL (32-36); Mean Corpuscular Volume 84.5 fL (80-100); RDW Coefficient of Variation 16.4 % (11.5-14.5); RDW Standard Deviation 51.1 fL (36.4-46.3); White Blood Count 3.07 K/uL (4.8-10.8)
[2018-08-15 07:14] LABS: Mean Platelet Volume 11.8 fL (7.4-10.4); Platelet Count 78 K/uL (130-400)
[2018-08-15 07:15] LABS: Eosinophils # (auto) 0.02 K/uL (0-0.5); Eosinophils % (auto) 0.7 %; Immature Granulocytes # (auto) 0.01 K/uL (0.00-0.02); Immature Granulocytes % (auto) 0.3 %; Lymphocytes # (auto) 0.79 K/uL (1.2-3.4); Lymphocytes % (auto) 25.7 %; Monocytes # (auto) 0.37 K/uL (0.11-0.59); Monocytes % (auto) 12.1 %; Neutrophils # (auto) 1.88 K/uL (1.4-6.5); Neutrophils % (auto) 61.2 %
[2018-08-15 07:53] LABS: Calcium 7.4 mg/dl (8.5-10.1); Creatinine Clr Calc Pharmacy 41.8 ml/min; Est GFR (African American) 64.6; Est GFR (Non-African American) 55.7; Magnesium 1.9 mg/dl (1.8-2.4); Potassium 3.9 mmol/L (3.5-5.1)
[2018-08-15] MEDS ORDERED: FUROSEMIDE 40 MG/4 ML VIAL IV ONE (07:57)
[2018-08-15] MEDS: HYDROCODONE/ACETAMINOPHEN 10/325 TAB PO PRN (07:59)
[2018-08-15] MEDS: CYANOCOBALAMIN 500 MCG TABLET (VITAMIN B-12) PO SCH (08:00)
[2018-08-15] MEDS: CHOLECALCIFEROL 1,000 UNITS TAB PO SCH ×2 (08:00→19:46)
[2018-08-15] MEDS: ISOSORBIDE MONO EXTENDED REL 60 MG TABCR PO SCH (08:00)
[2018-08-15] MEDS: PREGABALIN 100 MG CAP PO SCH ×2 (08:00→19:45)
[2018-08-15] MEDS: ROSUVASTATIN CALCIUM 20 MG TAB PO SCH (08:01)
[2018-08-15] MEDS: PANTOprazole 40 MG TAB PO SCH (08:01)
[2018-08-15] MEDS: ESCITALOPRAM OXALATE 10 MG TAB PO SCH (08:01)
[2018-08-15] MEDS: IPRATROPIUM BROMIDE/ALBUTEROL respimat INH INH SCH ×4 (08:01→19:45)
[2018-08-15] MEDS: ASPIRIN 81 MG ECTAB PO SCH (08:02)
[2018-08-15] MEDS ORDERED: FUROSEMIDE 40 MG in SYRINGE 0 ML IV ONE (08:15)
[2018-08-15] MEDS ORDERED: ONDANSETRON INJ 2 MG/ML 2 ML VIAL IV PRN (09:15)
--- NOTE | 2018-08-15 09:23 | Surgery Progress Note ---
Date of Service August 15, 2018 Assessment & Plan (1) S/P carotid endarterectomy: The endarterectomy site looks good. Incision is healed well. (2) Postoperative hypoxia: Patient was placed on a Ventimask. She was given 40 of Lasix IV. We will obtain a chest x-ray. Troponins are also ordered. Subjective This is a postoperative day 2. Patient was complaining of shortness of breath this a.m. She required Ventimask to raise her sats in the 90s. At this point she is still slightly short of breath but no distress. Her sats are in the mid 90s at this point in time. She has had fluid running since yesterday although she was eating.She denies any chest pain. Physical Exam 2 Vital Signs (Past 24 Hours): Last Vital Signs Temp 37.7 C H 08/15/18 07:32 Pulse 73 08/15/18 07:32 Resp 18 08/15/18 07:32 BP 199/64 H 08/15/18 07:32 Pulse Ox 91 08/15/18 07:32 On exam she is awake and alert. Vital signs are stable she is slightly hypertensive. Her neck is ecchymotic and slightly edematous but no changes since yesterday. The trachea is midline. She has no neurological deficits. Her tongue is midline she has no swallowing difficulties. She does have a few crackles in the base of her lungs and decreased inspiratory effect.
--- NOTE | 2018-08-15 10:26 | XRay Report ---
XR chest 1V portable CLINICAL HISTORY: Shortness of breath COMPARISON STUDY: None FINDINGS: The heart is enlarged. There is a left subclavian dual-chamber central venous pacemaker. Th ere is a retrocardiac opacity consistent with a hiatal hernia. There is no lobar consolidation. There is mild vascular prominence. An element of mild pulmonary vascular congestion cannot be excluded. Th ere are no large pleural effusions[ IMPRESSION: 1. Cardiomegaly. 2. Moderate to large hiatal hernia 3. No evidence of focal pulmonary consolidation 4. Equivocal mild pulmonary vascular congestion Electronically signed by: Christophe Babb M.D. 08/15/2018 10:24 AM
[2018-08-15] MEDS: CETIRIZINE HCL 10 MG TABLET PO SCH (19:46)
[2018-08-16] MEDS: IPRATROPIUM BROMIDE/ALBUTEROL respimat INH INH SCH ×4 (08:19→20:55)
[2018-08-16] MEDS: CHOLECALCIFEROL 1,000 UNITS TAB PO SCH ×2 (08:21→20:56)
[2018-08-16] MEDS: PANTOprazole 40 MG TAB PO SCH (08:21)
[2018-08-16] MEDS: ASPIRIN 81 MG ECTAB PO SCH (08:21)
[2018-08-16] MEDS: CYANOCOBALAMIN 500 MCG TABLET (VITAMIN B-12) PO SCH (08:21)
[2018-08-16] MEDS: ISOSORBIDE MONO EXTENDED REL 60 MG TABCR PO SCH (08:21)
[2018-08-16] MEDS: ESCITALOPRAM OXALATE 10 MG TAB PO SCH (08:21)
[2018-08-16] MEDS: ROSUVASTATIN CALCIUM 20 MG TAB PO SCH (08:21)
[2018-08-16] MEDS: PREGABALIN 100 MG CAP PO SCH ×2 (08:26→20:56)
--- NOTE | 2018-08-16 08:36 | Anesthesiology Progress Note ---
Date of Service August 16, 2018 Anesthesia Post Procedure Vital Signs Vital Signs: Temp Pulse Pulse Resp BP BP Pulse Ox 08/16/18 07:10 37.4 C 69 19 151/66 H 95 08/16/18 03:47 36.9 C 73 18 147/69 H 96 08/16/18 00:00 73 08/15/18 23:50 37.5 C 80 16 147/65 H 94 08/15/18 18:57 37.2 C 72 22 131/68 100 08/15/18 16:00 66 08/15/18 15:33 36.9 C 79 26 H 108/62 98 08/15/18 11:05 36.8 C 60 18 94/59 L 98 Notes Mental Status: alert / awake / arousable and participated in evaluation Nausea / Vomiting: adequately controlled Pain: adequately controlled Airway Patency, RR, SpO2: stable & adequate BP & HR: stable & adequate Hydration State: stable & adequate
--- NOTE | 2018-08-16 09:12 | Surgery Progress Note ---
Date of Service August 16, 2018 Assessment & Plan (1) S/P carotid endarterectomy: Pt improving post op. Will have pt eval by PT/OT today. D/C hydrocodone. Present on Admission?: No (2) Carotid stenosis, bilateral: now s/p R CEA Present on Admission?: Yes (3) Acute blood loss as cause of postoperative anemia: Will follow hgb. D/C on iron supplementation Subjective 82 yo f POD #3 after R CEA d/t severe stenosis, seen in f/u today. Pt admits pain in R neck. Admits unsteadiness when walking and fatigue. Denies MCCARTY, chest pain, SOB, abd pain, N/V, other complaints. Per staff, pt unsteady when walking and slept most of the day yesterday after taking hydrocodone. Remains on O2 via NC at 2L with sats in mid 90's. Per pt, never used oxgen at home prior to admission. Physical Exam 2 Vital Signs (Past 24 Hours): Last Vital Signs Temp 37.4 C 08/16/18 07:10 Pulse 69 08/16/18 07:10 Resp 19 08/16/18 07:10 BP 151/66 H 08/16/18 07:10 Pulse Ox 95 08/16/18 07:10 Constitutional: WD/WN, vitals as above Neck: trachea midline (R neck incision C/D/I with dermabond. + local hematoma with softer ecchymosis anterior, posterior, and inferior to wound. + tenderness. 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
[2018-08-16] MEDS: ACETAMINOPHEN 325 MG TAB PO PRN ×2 (10:14→19:32)
[2018-08-16] MEDS ORDERED: FUROSEMIDE 20 MG in SYRINGE 0 ML IV ONE (11:22)
[2018-08-16] MEDS: ENOXAPARIN INJ 40 MG/0.4 ML SYR SQ SCH ×2 (14:07→22:30)
[2018-08-16] MEDS: FERROUS SULFATE 325 MG TAB PO SCH (17:39)
[2018-08-16] MEDS: DOCUSATE SODIUM 100 MG CAP PO SCH (20:54)
[2018-08-16] MEDS: CETIRIZINE HCL 10 MG TABLET PO SCH (20:57)
[2018-08-17 07:09] LABS: Hematocrit (blood only) 26.8 % (37-47); Hemoglobin 8.6 g/dL (12.0-16.0)
[2018-08-17] MEDS: FERROUS SULFATE 325 MG TAB PO SCH (08:23)
[2018-08-17] MEDS: IPRATROPIUM BROMIDE/ALBUTEROL respimat INH INH SCH ×2 (08:23→12:30)
[2018-08-17] MEDS: CHOLECALCIFEROL 1,000 UNITS TAB PO SCH (08:23)
[2018-08-17] MEDS: ASPIRIN 81 MG ECTAB PO SCH (08:23)
[2018-08-17] MEDS: PANTOprazole 40 MG TAB PO SCH (08:24)
[2018-08-17] MEDS: ESCITALOPRAM OXALATE 10 MG TAB PO SCH (08:24)
[2018-08-17] MEDS: CYANOCOBALAMIN 500 MCG TABLET (VITAMIN B-12) PO SCH (08:24)
[2018-08-17] MEDS: ISOSORBIDE MONO EXTENDED REL 60 MG TABCR PO SCH (08:24)
[2018-08-17] MEDS: DOCUSATE SODIUM 100 MG CAP PO SCH (08:25)
[2018-08-17] MEDS: PREGABALIN 100 MG CAP PO SCH (08:31)
[2018-08-17] MEDS: ENOXAPARIN INJ 40 MG/0.4 ML SYR SQ SCH (11:41)
[2018-08-17] MEDS: ROSUVASTATIN CALCIUM 20 MG TAB PO SCH (11:42)
--- NOTE | 2018-08-17 12:32 | Surgery Progress Note ---
Date of Service August 17, 2018 Assessment & Plan (1) S/P carotid endarterectomy: Pt doing well post op. OK for d/c home today. (2) Carotid stenosis, bilateral: now s/p R CEA Subjective 82 yo f POD #4 after R CEA d/t severe stenosis, seen in f/u today. Pt admits pain in R neck, but states is well controlled. Feeling improved today, less fatigued. Breathing easier. Denies any new complaints. Physical Exam 2 Vital Signs (Past 24 Hours): Last Vital Signs Temp 37.1 C 08/17/18 11:34 Pulse 85 08/17/18 11:34 Resp 19 08/17/18 11:34 BP 125/65 08/17/18 11:34 Pulse Ox 93 08/17/18 11:34 Constitutional: WD/WN, vitals as above Neck: trachea midline (R neck incision C/D/I with dermabond. + local hematoma with softer ecchymosis anterior, posterior, and inferior to wound. + tenderness. No drainage) Respiratory: normal respiratory effort Auscultation: + diminished lung sounds Cardiovascular: Rate/Rhythm: regular rate and regular rhythm Heart Sounds: + murmur Gastrointestinal (Abdomen): normal bowel sounds, soft, nontender, no hepatosplenomegaly Musculoskeletal: no cyanosis or clubbing, extremities motor strength 5/5 Neurologic: no focal motor deficits Speech / Cognition: normal speech
--- NOTE | 2018-08-24 08:49 | Discharge Summary ---
Date of Service August 24, 2018 Admission HPI Per Admitting Provider CC:Right carotid artery stenosis HPI: Today we had the pleasure of seeing Ms. Sadler in our outpatient vascular surgery clinic. As you are aware, she is an 82-year-old female with multiple comorbidities, but found to have bilateral carotid artery disease with a greater stenosis on the right side. She is here for evaluation of that carotid disease. Upon obtaining history, the patient does report an episode approximately 2 weeks ago of left arm weakness and numbness that lasted for approximately 10 minutes and resolved. This sounds like a TIA. The patient reports that over 10 years ago, she believes that she had TIAs, but is unable to describe exactly what symptoms she had or what she had done or if she had anything done for these episodes. 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 Lungs are clear to auscultation. Chest demonstrates RRR, murmur noted. Abdomen soft, nontender, + bs x 4 quad. Peripheral pulses +3 in brachial, radial and femoral. +1 in distal BLE Cranial nerves 2 through 12 intact. No focal neuro deficits in upper or lower extremities. The patient does have numbness in feet bilaterally. The patient has 5/5 strength bilaterally upper and lower extremities. Principal Diagnosis 1. s/p R Carotid Endarterectomy 2. R Carotid Stenosis 3. Post op Hypoxia d/t fluid overload - resolved Discharge Exam Constitutional WD/WN, vitals as above Neck trachea midline (R neck incision C/D/I with dermabond. + local hematoma with softer ecchymosis anterior, posterior, and inferior to wound. + tenderness. No drainage) Respiratory normal respiratory effort Auscultation: + diminished lung sounds Cardiovascular Rate/Rhythm: regular rate and regular rhythm Heart Sounds: + murmur Gastrointestinal (Abdomen) normal bowel sounds, soft, nontender, no hepatosplenomegaly Musculoskeletal no cyanosis or clubbing, extremities motor strength 5/5 Neurologic no focal motor deficits Speech / Cognition: normal speech Discharge Data Allergies Allergy/AdvReac Type Severity Reaction Status Date / Time No Known Allergies Allergy Unverified 08/13/18 09:43 Consultations 08/13/18 11:50 Consult [employer] Routine Procedures Performed Operation Date: 08/13/18 10:50 Actual Procedures p Right Carotid Endarterectomy(Right) - Chemo Rodriguez MD Hospital Course (1) S/P carotid endarterectomy: Pt doing well post op. OK for d/c home POD # 4. Hypoxia resolved after diuresis, no furhter symptoms. (2) Carotid stenosis, bilateral: now s/p R CEA Total Time Total Time Spent Total Time Spent (In Minutes): 20 Total Time Includes: Examination of the Patient, Discharge Planning and Medication Reconciliation Discharge Plan Discharge Items Patient Disposition: Home - Home Health Services Reason For Visit: Right Internal Carotid Artery Stenosis with TFA Discharge Diagnosis: 1. s/p R Carotid Endarterectomy 2. R Internal Carotid Stenosis with TIA Condition: Good Discharge Goals: Therapeutic intervention Activity: Per 'Additional Instructions' section Lifting: Gradually increase as tolerated Bathing: No limitations Sexual Activity: When tolerated Exercise/Sports: Gradually increase as tolerated Driving/Machine Use Comment: No driving x 1 week Weightbearing: Left weightbearing and Right weightbearing Non-emergency contact: Primary Care Provider and Surgeon Call non-emergency contact if: you have any medication questions, your pain is not controlled, your temperature is above 101, your wound has increased redness and your wound has increased drainage Follow-up/Referrals: Favio Chester DO [Primary Care Provider] - Diet: Heart Healthy Addtl Provider Instructions: SPECIAL CARE INSTRUCTIONS: Medications: * Continue to take Aspirin as directed. Incision Care: * You may shower, but do not rub incision. You may let the warm soapy water run over it. Be sure to dry the incision well after bathing. * Do not shave directly over the incision until it is healed. * DO NOT IMMERSE THE INCISION IN A TUB/POOL/etc. UNTIL HEALED. Restrictions: * Do not drive for at least one week or if you are still taking any narcotic pain medication. * Do not lift anything heavier than a gallon of milk for one week after going home. Possible Complications: * Numbness - It is normal to have some numbness around the incision. Numbness can extend beyond the incision to areas of the neck, ear and face. The numbness is due to bruising of nerves during the surgery and will gradually improve over a period of months. * Hoarseness/Difficulty Speaking and Swallowing - The bruising of nerves in the neck can also cause a hoarse voice, difficulty speaking or swallowing. This may improve over time, HOWEVER, if it continues for more than a few days please contact our office ([phone]). * Excessive Swelling - There will be some swelling immediately after surgery which usually resolves within one week. If you notice that the swelling is getting worse, notify your surgeon ([phone]). * Drainage/Bleeding - If there is any drainage or bleeding, it should be a very small amount (less than a teaspoon per day). If you have excessive bleeding or drainage from the incision, call your surgeon ([phone]) right away. ACTIVATION OF EMERGENCY MEDICAL SYSTEM: Call 911, immediately, if you experience any of the following: Warning Signs and Symptoms of Stroke: * Sudden numbness or weakness of the face, arm or leg, especially on one side of the body * Sudden confusion, trouble speaking or understanding * Sudden trouble seeing in one or both eyes * Sudden trouble walking, dizziness, loss of balance or coordination * Sudden severe headache with no cause Do not delay calling 911 if you experience any warning signs or symptoms of a stroke. Delay in seeking medical attention may affect what treatments can be given to you. Risk Factors for Stroke: You can reduce your chances of stroke by working with your medical provider to adopt a healthy lifestyle. Some specific ways to lower your chance of stroke are: * If you are a smoker, now is the time to stop smoking cigarettes * If you are diabetic, improve the control of your blood sugars * Avoid excessive amounts of alcohol * Control high blood pressure * Lose weight if you are overweight * Be sure to lead an active lifestyle * Eat a healthy diet low in salt, cholesterol and fat You should know about other risk factors for stroke that you are unable to control. These include: * Age 55 years or older * Male gender * Certain racial groups: , or / * Family History of Stroke, Mini stroke or Heart Attack * Sickle Cell Disease You will be receiving a call from the Vascular Surgery Nurse after you are discharged. FOLLOW UP VISIT: It is important for you to keep your follow up appointments with your medical provider. Keep any scheduled doctor appointments. Prescriptions: Continue cetirizine 10 mg Tablet 10 mg PO HS RF: 0 metoprolol tartrate 100 mg Tablet 100 mg PO BID RF: 0 aspirin [Aspir-81] 81 mg Tablet,Delayed Release (Dr/Ec) 81 mg PO QAM RF: 0 isosorbide mononitrate 120 mg Tablet Extended Release 24 Hr 120 mg PO QAM RF: 0 pantoprazole 40 mg Tablet,Delayed Release (Dr/Ec) 40 mg PO QAM RF: 0 nitroglycerin [Nitrostat] 0.4 mg Tablet, Sublingual 0.4 mg Sublingual UD PRN (Reason: Chest Pain) RF: 0 escitalopram oxalate 10 mg Tablet 10 mg PO QAM RF: 0 rosuvastatin 40 mg Tablet 40 mg PO QAM RF: 0 pregabalin [Lyrica] 100 mg Capsule 100 mg PO BID RF: 0 ipratropium-albuterol [Combivent Respimat] 20-100 mcg/actuation Mist 1 puff INHALATION QID RF: 0 cyanocobalamin (vitamin B-12) 1,000 mcg Capsule 1,000 mcg PO QAM RF: 0 hydrocodone-acetaminophen 10-325 mg Tablet 1 tab PO Q6H PRN (Reason: Pain) RF: 0 cholecalciferol (vitamin D3) [Vitamin D3] 2,000 unit Capsule 2,000 unit PO BID RF: 0 Stand-Alone Forms: [employer] [facility] [place] [facility] Patient Handouts: Blockage Carotid Artery, Endarterectomy Carotid Home, Cholesterol Lifestyle Change Discharge Orders: Discharge Order (Routine); Ordered 08/17/18 Ordered By: Johnna Herman Admission Data Admit Date/Time: 08/13/18 11:50 Attending Provider: Chemo Rodriguez Admit Provider: Chemo Rodriguez Primary Care Provider: Favio Chester Service: Telemetry Other Interventions: Discharge Summary Assessment (RN) Last Done: 08/17/18 12:44 DC Date/Time DO NOT enter until pt leaves facility: 08/17/18 13:55
== END 2018-08-17 13:55 | disposition home health service (06) | DRG 38 ==
LOC: ASU 08:53 → 1E 11:50 → 2S 08-14 15:58
DX: K21.9 Gastro-esophageal reflux disease without esophagitis; Z95.0 Presence of cardiac pacemaker; Z82.3 Family history of stroke; Z95.2 Presence of prosthetic heart valve; Z86.73 Personal history of transient ischemic attack (TIA), and cerebral infarction without residual deficits; R50.82 Postprocedural fever; N18.3 Chronic kidney disease, stage 3 (moderate); E78.5 Hyperlipidemia, unspecified; Z83.3 Family history of diabetes mellitus; J44.9 Chronic obstructive pulmonary disease, unspecified; G62.9 Polyneuropathy, unspecified; F32.9 Major depressive disorder, single episode, unspecified; D62 Acute posthemorrhagic anemia; I65.21 Occlusion and stenosis of right carotid artery; I25.10 Atherosclerotic heart disease of native coronary artery without angina pectoris; I12.9 Hypertensive chronic kidney disease with stage 1 through stage 4 chronic kidney disease, or unspecified chronic kidney disease

== ENCOUNTER 2020-08-04 16:50 | Inpatient (IN) ==
[2020-08-04] MEDS ORDERED: MoRPHine SULFATE 4 MG/ML 1 ML CARP\\VIAL IV STA (16:57)
--- NOTE | 2020-08-04 17:07 | Emergency Department Note ---
History of Present Illness General Chief complaint: Hip Pain Stated complaint: FALL, R HIP PAIN Time Seen by Provider: 08/04/20 16:51 Source: patient and EMS Mode of arrival: EMS History of Present Illness Provider complaint: Right hip pain Onset (ago): minute(s) Location: hip and right Radiation: non-radiation Severity: severe Pain Consistency: + constant Quality: + sharp Exacerbated By: + movement Associated symptoms: + headaches; no chest pain, no cough, no fever/chills, no nausea/vomiting and no shortness of breath This is an 84-year-old female who was walking in a parking lot when she lost her balance and fell onto the ground. She hit her right hip as well as her head and complains of severe pain to the right hip. She describes it as sharp. Is worse with movement. She rates it a 10 out of 10 in severity. She denies any associated LOC. She has had no recent illness and denies fever, chest pain, shortness of breath, neck pain, abdominal pain, vomiting, diarrhea or urinary symptoms. She denies ever seeing a orthopedic physician in the past. Home Medications Medication Instructions Recorded Confirmed Type cetirizine 10 mg tablet 10 mg PO HS #90 tab 12/28/18 08/04/20 Rx metoprolol tartrate 100 mg tablet 100 mg PO BID #180 tab 01/05/19 08/04/20 Rx pantoprazole 40 mg tablet,delayed 40 mg PO QAM #90 tab 03/02/19 08/04/20 Rx release albuterol sulfate [Ventolin HFA] 2 puff INHALATION Q4H PRN 08/01/19 08/04/20 History furosemide 20 mg PO 3XWK 08/01/19 08/04/20 History levothyroxine 25 mcg PO QAM 08/01/19 08/04/20 History melatonin 10 mg PO HS 08/01/19 08/04/20 History acetaminophen 500 mg PO Q6H PRN MDD 3 GMS 08/04/20 08/04/20 History APAP/24 HOURS albuterol sulfate [Proventil] 2.5 mg INHALATION Q6H PRN 08/04/20 08/04/20 History aspirin [Aspirin Low-Strength] 81 mg PO DAILY 08/04/20 08/04/20 History budesonide-formoterol [Symbicort] 2 puff INHALATION BID 08/04/20 08/04/20 History buspirone 5 mg PO AMHS 08/04/20 08/04/20 History cholecalciferol (vitamin D3) 25 mcg PO DAILY 08/04/20 08/04/20 History [Vitamin D3] cyanocobalamin (vitamin B-12) 500 mcg PO DAILY 08/04/20 08/04/20 History escitalopram oxalate 20 mg PO DAILY 08/04/20 08/04/20 History fluticasone propionate [Flonase] 2 spray INTRANASAL DAILY 08/04/20 08/04/20 History isosorbide mononitrate 30 mg PO DAILY 08/04/20 08/04/20 History isosorbide mononitrate 60 mg PO DAILY 08/04/20 08/04/20 History nitroglycerin [Nitrostat] 0.4 mg SUBLINGUAL DIRECTED PRN 08/04/20 08/04/20 History oxycodone-acetaminophen See Rx Instructions .ROUTE .COMPLEX 08/04/20 08/04/20 History pregabalin [Lyrica] 100 mg PO AMHS 08/04/20 08/04/20 History rosuvastatin 20 mg PO HS 08/04/20 08/04/20 History tiotropium bromide [Spiriva with 1 cap INHALATION DAILY 08/04/20 08/04/20 History HandiHaler] tizanidine 2 mg PO HS 08/04/20 08/04/20 History vit C,B-Hq-qqiea-lutein-zeaxan 1 cap PO DAILY 08/04/20 08/04/20 History [PreserVision AREDS-2] Allergies Allergy/AdvReac Type Severity Reaction Status Date / Time No Known Allergies Allergy Verified 08/04/20 18:26 Past Med/Surg History Medical History Abnormal CBC Abscess, cheek Allergic rhinitis Anemia Anemia Anxiety Aortic stenosis "echo 07/17/15 mod-severe aortic stenosis " CAD (coronary artery disease) "s/p RCA stent" Carotid stenosis Carotid stenosis, bilateral "carotid US 11/2014 + for 50%-69% stenosis bilaterally" Cellulitis Chest pain Chronic anemia Chronic back pain WITH B/L LE RADICULOPATHY Chronic obstructive pulmonary disease CKD (chronic kidney disease) stage 3, GFR 30-59 ml/min COPD, moderate Cough Depression Diverticular disease S/P PARTIAL COLON RESECTION Dyslipidemia Dyspnea on exertion Generalized osteoarthritis GERD (gastroesophageal reflux disease) GERD without esophagitis Hiatal hernia History of pacemaker "for SSS" History of TIA (transient ischemic attack) HTN (hypertension) Hyperlipidemia Lumbar disc disease Multiple joint pain Osteoarthritis Other specified disorders of arteries and arterioles Pacemaker, artificial PAD (peripheral artery disease) Spinal stenosis Unknown whether patient has any health problems Urinary frequency Vitamin D deficiency Surgical History H/O hand surgery RIGHT FINGER CYSTECTOMY History of appendectomy History of cardiac cath BMS TO RCA (2000) PPM IMPLANTED 2000 (? REPLACEMENT ) History of cholecystectomy History of colon resection PARTIAL RESECTION (? 2/2 DIVERTICULAR DISEASE) History of colonoscopy History of esophagogastroduodenoscopy (EGD) History of heart valve replacement TAVR (2016) History of neurologic surgery History of partial colectomy History of right-sided carotid endarterectomy History of total hysterectomy S/P carotid endarterectomy Stented coronary artery "bare metal stent to RCA 2000" Family History Daughter Family history of diabetes mellitus Sister Arthritis Stroke Father Coronary heart disease Mother Asthma Malignant neoplasm of skin Stroke Social History Smoking Status: Former smoker Second Hand Exposure: No; Hx Alcohol Use: No Hx Substance Use: No Preferred Language: [place] Communication Ability: Effective Cloth Finishing Range Tender Required: No Beliefs That Will Affect Care: None marital status: Single Current Living Situation: Alone Feels Safe at Home: Yes Assistive Devices: Walker Review of Systems See HPI for pertinent positives & negatives. and A total of 10 systems reviewed and were otherwise negative Physical Exam Vital Signs Vital Signs - 24 hr 08/04/20 17:03 08/04/20 18:00 08/04/20 18:30 Temperature 36.7 C Temperature Source Oral Pulse Rate 80 62 60 Pulse Rate from SpO2 Sensor 62 60 Respiratory Rate 14 20 12 Respiratory Effort / Characteristics Respiratory Depth Respiratory Pattern Blood Pressure 197/101 H 122/77 135/71 Blood Pressure Mean 133 92 92 Pulse Oximetry 98 98 96 Oxygen Delivery Method Room Air Nasal Cannula Nasal Cannula Oxygen Flow Rate 2 2 Sepsis Recent Fever Within 48 Hours No Sepsis New/Unexplained Change in Mental Status No Sepsis Action Taken by Nursing No Action Required 08/04/20 19:00 08/04/20 19:31 08/04/20 19:36 Temperature Temperature Source Pulse Rate 60 60 62 Pulse Rate from SpO2 Sensor 60 60 61 Respiratory Rate 16 21 22 Respiratory Effort / Characteristics Respiratory Depth Respiratory Pattern Blood Pressure 112/59 L 145/84 H 131/99 Blood Pressure Mean 76 104 109 Pulse Oximetry 97 97 96 Oxygen Delivery Method Room Air Nasal Cannula Nasal Cannula Oxygen Flow Rate 2 2 Sepsis Recent Fever Within 48 Hours Sepsis New/Unexplained Change in Mental Status Sepsis Action Taken by Nursing 08/04/20 19:46 08/04/20 19:47 08/04/20 19:57 Temperature Temperature Source Pulse Rate 60 60 Pulse Rate from SpO2 Sensor 60 60 Respiratory Rate 8 L 21 Respiratory Effort / Characteristics Non-Labored Spontaneous Respiratory Depth Normal Respiratory Pattern Regular Blood Pressure 116/67 Blood Pressure Mean 83 Pulse Oximetry 97 96 Oxygen Delivery Method Nasal Cannula Oxygen Flow Rate 2 Sepsis Recent Fever Within 48 Hours Sepsis New/Unexplained Change in Mental Status Sepsis Action Taken by Nursing Constitutional: Vital signs reviewed. Eyes: Pupils are equal round reactive to light. Conjunctiva are noninjected. ENT: Pharynx is clear without erythema or exudate. Mucous membranes are moist. No midline tenderness to the cervical spine. Respiratory: Clear to auscultation bilaterally. Breath sounds are equal bilaterally. Cardiovascular: Regular rate and rhythm. No rubs or gallops. GI: Soft, nondistended and nontender. Bowel sounds are present. Musculoskeletal: Tenderness to the right hip held in flexion. No obvious deformity. Normal distal pulses. No tenderness to the knee, tib-fib ankle or foot. Integumentary: No cyanosis. or jaundice. Neurological: The patient is awake and alert. No focal deficits. Psychiatric: Normal affect. Not anxious appearing. Course Administered Medications Discontinued Medications Hydromorphone HCl (Hydromorphone Inj 0.5 Mg/0.5 Ml Syr) 0.5 mg IV NOW STA Stop: 08/04/20 17:53 Last Admin: 08/04/20 17:58 Dose: 0.5 mg Documented by: [id number] Hydromorphone HCl (Hydromorphone Inj 0.5 Mg/0.5 Ml Syr) 0.5 mg IV NOW STA Stop: 08/04/20 19:33 Last Admin: 08/04/20 19:42 Dose: 0.5 mg Documented by: [id number] Morphine Sulfate (Morphine Sulfate 4 Mg/Ml 1 Ml Carp\\Vial) 4 mg IV NOW STA Stop: 08/04/20 16:58 Last Admin: 08/04/20 17:40 Dose: 4 mg Documented by: [id number] Medical Decision Making Differential Diagnosis Hip fracture, hip contusion, hip dislocation, ICH, concussion, cervical injury Medical Records Attestation: I reviewed the patient's medical records. I did perform a limited focused review of portions of the patient's old chart on the electronic medical record. The patient has had no recent pertinent visits to this hospital. Home Medications Current Medication List: was personally reviewed by me Laboratory Data Result diagrams: 08/04/20 17:40 08/04/20 17:40 Lab Results 08/04/20 08/04/20 08/04/20 Range/Units 17:40 17:40 17:40 WBC 4.81 (4.8-10.8) K/uL RBC 4.00 L (4.2-5.4) M/uL Hgb 12.0 (12.0-16.0) g/dL Hct 35.9 L (37-47) % MCV 89.8 (80-100) fL MCH 30.0 (25-34) pg MCHC 33.4 (32-36) g/dL RDW Std Deviation 48.6 H (36.4-46.3) fL RDW Coeff of Beatriz 14.7 H (11.5-14.5) % Plt Count 139 (130-400) K/uL MPV 12.0 H (7.4-10.4) fL Immature Gran % (Auto) 0.4 % Neut % (Auto) 67.9 % Lymph % (Auto) 19.8 % Bent % (Auto) 9.8 % Eos % (Auto) 1.9 % Baso % (Auto) 0.2 % Neut # (Auto) 3.27 (1.4-6.5) K/uL Lymph # (Auto) 0.95 L (1.2-3.4) K/uL Bent # (Auto) 0.47 (0.11-0.59) K/uL Eos # (Auto) 0.09 (0-0.5) K/uL Baso # (Auto) 0.01 (0-0.2) K/uL Immature Gran # (Auto) 0.02 (0.00-0.02) K/uL PT 10.8 (9.0-12.0) Seconds INR 1.1 (0.9-1.1) APTT 23.6 (21.0-31.0) Seconds PTT Ratio 0.9 Sodium 144 (136-145) mmol/L Potassium 4.1 (3.5-5.1) mmol/L Chloride 110 H (98-107) mmol/L Carbon Dioxide 30 (21-32) mmol/L Anion Gap 4.0 (3-11) BUN 21 H (7-18) mg/dl Creatinine 1.45 H (0.6-1.2) mg/dl Est Cr Clr Drug Dosing 26.1 ml/min Est GFR ( Amer) 37.7 Est GFR (Non-Af Amer) 32.5 BUN/Creatinine Ratio 14.8 (10-20) Glucose 142 H (70-99) mg/dl Calcium 8.8 (8.5-10.1) mg/dl COVID-19 Eval Order SARS-CoV-2, RNA, NAAT (NEGATIVE) 08/04/20 08/04/20 Range/Units 18:02 18:02 WBC (4.8-10.8) K/uL RBC (4.2-5.4) M/uL Hgb (12.0-16.0) g/dL Hct (37-47) % MCV (80-100) fL MCH (25-34) pg MCHC (32-36) g/dL RDW Std Deviation (36.4-46.3) fL RDW Coeff of Beatriz (11.5-14.5) % Plt Count (130-400) K/uL MPV (7.4-10.4) fL Immature Gran % (Auto) % Neut % (Auto) % Lymph % (Auto) % Bent % (Auto) % Eos % (Auto) % Baso % (Auto) % Neut # (Auto) (1.4-6.5) K/uL Lymph # (Auto) (1.2-3.4) K/uL Bent # (Auto) (0.11-0.59) K/uL Eos # (Auto) (0-0.5) K/uL Baso # (Auto) (0-0.2) K/uL Immature Gran # (Auto) (0.00-0.02) K/uL PT (9.0-12.0) Seconds INR (0.9-1.1) APTT (21.0-31.0) Seconds PTT Ratio Sodium (136-145) mmol/L Potassium (3.5-5.1) mmol/L Chloride (98-107) mmol/L Carbon Dioxide (21-32) mmol/L Anion Gap (3-11) BUN (7-18) mg/dl Creatinine (0.6-1.2) mg/dl Est Cr Clr Drug Dosing ml/min Est GFR ( Amer) Est GFR (Non-Af Amer) BUN/Creatinine Ratio (10-20) Glucose (70-99) mg/dl Calcium (8.5-10.1) mg/dl COVID-19 Eval [facility] SARS-CoV-2, RNA, NAAT NEGATIVE (NEGATIVE) Imaging Data Radiologist's Impression: XR hip RT min 2V CLINICAL HISTORY: fall eval for injury. Right hip pain. COMPARISON STUDY: None. FINDINGS: Irregular step-off at the femoral head/neck junction likely representing acute impacted subcapital femoral neck fracture. The visualized pelvic bones appear intact. The bones are osteopenic. Right lateral hip soft tissue swelling. IMPRESSION: An irregular step-off at the right femoral head/neck junction likely representing an acute impacted subcapital femoral neck fracture. ACT 112: Negative or not required by law. Electronically signed by: Omsin Robledo M.D. 08/04/2020 5:41 PM Dictated: 08/04/20 173 Transcribed: 08/04/[address] DOSE: HISTORY: fall eval for injury TECHNIQUE: Multiaxial CT images of the head were performed without the use of intravenous contrast. Automated exposure control was utilized for this study. A dose lowering technique was utilized adhering to the principles of ALARA. Comparison: Head CT 09/17/2015. Findings: The paranasal sinuses and mastoid air cells are clear. The calvarium and skull base are intact. There is no mass, hematoma, midline shift, acute infarct. White matter hypodensity is nonspecific but suggestive of microvascular ischemic change. The ventricles and sulci demonstrate mild age-related involutional changes. Old punctate lacunar infarcts within the bilateral basal ganglia and left thalamus. Impression: No acute intracranial abnormality. Atrophy and microvascular ischemic changes. ACT 112: Negative or not required by law. Electronically signed by: Osmin Robledo M.D. 08/04/2020 5:31 PM Dictated: 08/04/201726 Transcribed: 08/04/201726 XR chest 1V portable HISTORY: fall eval for injury COMPARISON: Chest 08/15/2018. FINDINGS: Mild diffuse interstitial thickening which is likely chronic. The heart remains mildly enlarged. An aortic stent is noted. Left-sided dual-chamber pacemaker. No pleural effusions. No pneumothorax. No acute fractures within the visualized osseous structures. IMPRESSION: 1. Stable cardiomegaly and chronic interstitial thickening. 2. Otherwise, no acute process within the chest. ACT 112: Negative or not required by law. Electronically signed by: Osmin Robledo M.D. 08/04/2020 5:39 PM Dictated: 08/04/201736 Transcribed: 08/04/[address] DOSE: 1292.63 mGy.cm HISTORY: fall eval for injury TECHNIQUE: Multiaxial CT images of the cervical spine were performed and reformatted in the sagittal and coronal plane without the use of contrast. A dose lowering technique was utilized adhering to the principles of ALARA. COMPARISON: None. FINDINGS: No fractures. No subluxation. Prevertebral soft tissues and the C1-C2 interval are intact. No pneumothorax. Moderate to severe degenerative disc disease throughout the cervical spine. IMPRESSION: No fractures within the cervical spine. ACT 112: Negative or not required by law. Electronically signed by: Osmin Robledo M.D. 08/04/2020 5:36 PM Dictated: 08/04/201730 Transcribed: 08/04/201730 ECG Data Attestation: I personally reviewed and interpreted this ECG as follows: Indication: + other (Hip fracture) Rate (beats per minute): 60 Rhythm: + other (Paced rhythm) ECG [place]: + Normal ECG Findings: no Q waves and no PVCs Head Trauma GCS Score: 15 MDM Narrative I did evaluate the patient as noted above. She is presenting after a fall with right hip pain and head injury. IV access was established. I did treat the patient with IV morphine and Zofran. I did place an order for continuous cardi ac monitoring. The monitor showed A paced rhythm with a rate of 60. I did order and personally review the patient's 12-lead EKG as described above. She has a paced rhythm. I did order and personally reviewed the images of the patient's chest x-ray and hip and pelvis x-rays as described above. She has a subcapital hip fracture. I did order Wood catheter. I did order a urine analysis. On re evaluation patient is complaining of more pain. She was given Dilaudid 0.5 mg IV. I did order and review the patient's blood work as noted in the electronic medical record. CBC and electrolytes are unremarkable. Creatinine slightly elevated 1.45. I did order a CT of the head and cervical spine. I did review the images myself as well as the radiology report as described above. There is no evidence of acute intracranial abnormality or cervical fracture. I did reassess patient again. She requested more pain medication was given another 0.5 mg of Dilaudid IV. I did discuss the case with the bilingual case manager and hospitalist who will consult orthopedics. Impression & Plan Subcapital fracture of hip, Acute head injury, Fall Discharge Plan Visit Data Chief Complaint: Hip Pain Stated Complaint: FALL, R HIP PAIN ED Provider: Chandana Sandy Discharge Problem: Subcapital fracture of hip, Acute head injury, Fall Patient Disposition: Being Evaluated by Hospitalist Forms Stand Alone Forms: My [facility] Prescriptions Prescriptions: No Action metoprolol tartrate 100 mg tablet 100 mg PO BID Qty: 180 RF: 1 pantoprazole 40 mg tablet,delayed release (DR/EC) 40 mg PO QAM Qty: 90 RF: 0 cetirizine 10 mg tablet 10 mg PO HS Qty: 90 RF: 3 furosemide 20 mg tablet 20 mg PO 3XWK RF: 0 albuterol sulfate [Ventolin HFA] 90 mcg/actuation Hfa Aerosol Inhaler 2 puff INHALATION Q4H PRN (Reason: Shortness Of Breath Or Wheezing) RF: 0 levothyroxine 25 mcg Tablet 25 mcg PO QAM RF: 0 melatonin 10 mg Capsule 10 mg PO HS RF: 0 buspirone 5 mg tablet 5 mg PO AMHS RF: 0 tizanidine 2 mg tablet 2 mg PO HS RF: 0 albuterol sulfate [Proventil] 2.5 mg /3 mL (0.083 %) Solution For Nebulization 2.5 mg INHALATION Q6H PRN (Reason: Shortness Of Breath,Wheezing Or Cough) RF: 0 isosorbide mononitrate 30 mg tablet extended release 24 hr 30 mg PO DAILY RF: 0 aspirin [Aspirin Low-Strength] 81 mg Tablet,Delayed Release (Dr/Ec) 81 mg PO DAILY RF: 0 acetaminophen 500 mg Tablet 500 mg PO Q6H MDD 3 GMS APAP/24 HOURS PRN (Reason: Pain) RF: 0 isosorbide mononitrate 60 mg tablet extended release 24 hr 60 mg PO DAILY RF: 0 cyanocobalamin (vitamin B-12) 500 mcg tablet 500 mcg PO DAILY RF: 0 fluticasone propionate [Flonase] 50 mcg/actuation [place],Suspension 2 spray INTRANASAL DAILY RF: 0 escitalopram oxalate 20 mg tablet 20 mg PO DAILY RF: 0 rosuvastatin 20 mg tablet 20 mg PO HS RF: 0 cholecalciferol (vitamin D3) [Vitamin D3] 25 mcg (1,000 unit) Tablet 25 mcg PO DAILY RF: 0 budesonide-formoterol [Symbicort] 160-4.5 mcg/actuation Hfa Aerosol Inhaler 2 puff INHALATION BID RF: 0 PreserVision AREDS-2 250-90-40-1 mg capsule 1 cap PO DAILY RF: 0 oxycodone-acetaminophen 5-325 mg tablet See Rx Instructions .ROUTE .COMPLEX RF: 0 pregabalin [Lyrica] 100 mg capsule 100 mg PO AMHS RF: 0 nitroglycerin [Nitrostat] 0.4 mg tablet, sublingual 0.4 mg Sublingual DIRECTED PRN (Reason: Chest Pain) RF: 0 Spiriva with HandiHaler 18 mcg Capsule, W/Inhalation Device 1 cap INHALATION DAILY RF: 0 Referrals Referrals: Emma Strauss MD [Primary Care Provider] -
--- NOTE | 2020-08-04 17:32 | CT Scan Report ---
HEAD CT NONCONTRAST CT DOSE: HISTORY: fall eval for injury TECHNIQUE: Multiaxial CT images of the head were performed without the use of intravenous contrast. A utomated exposure control was utilized for this study. A dose lowering technique was utilized adheri ng to the principles of ALARA. Comparison: Head CT 09/17/2015. Findings: The paranasal sinuses and mastoid air cells are clear. The calvarium and skull base are int act. There is no mass, hematoma, midline shift, acute infarct. White matter hypodensity is nonspecifi c but suggestive of microvascular ischemic change. The ventricles and sulci demonstrate mild age-rela saundra involutional changes. Old punctate lacunar infarcts within the bilateral basal ganglia and left t halamus. Impression: No acute intracranial abnormality. Atrophy and microvascular ischemic changes. ACT 112: Negative or not required by law. Electronically signed by: Osmin Robledo M.D. 08/04/2020 5:31 PM
--- NOTE | 2020-08-04 17:38 | CT Scan Report ---
CERVICAL SPINE CT CT DOSE: 1292.63 mGy.cm HISTORY: fall eval for injury TECHNIQUE: Multiaxial CT images of the cervical spine were performed and reformatted in the sagittal and coronal plane without the use of contrast. A dose lowering technique was utilized adhering to th e principles of ALARA. COMPARISON: None. FINDINGS: No fractures. No subluxation. Prevertebral soft tissues and the C1-C2 interval are intact. No pneumothorax. Moderate to severe degenerative disc disease throughout the cervical spine. IMPRESSION: No fractures within the cervical spine. ACT 112: Negative or not required by law. Electronically signed by: Osmin Robledo M.D. 08/04/2020 5:36 PM
--- NOTE | 2020-08-04 17:40 | XRay Report ---
XR chest 1V portable HISTORY: fall eval for injury COMPARISON: Chest 08/15/2018. FINDINGS: Mild diffuse interstitial thickening which is likely chronic. The heart remains mildly enla rged. An aortic stent is noted. Left-sided dual-chamber pacemaker. No pleural effusions. No pneumotho rax. No acute fractures within the visualized osseous structures. IMPRESSION: 1. Stable cardiomegaly and chronic interstitial thickening. 2. Otherwise, no acute process within the chest. ACT 112: Negative or not required by law. Electronically signed by: Osmin Robledo M.D. 08/04/2020 5:39 PM
--- NOTE | 2020-08-04 17:43 | XRay Report ---
XR hip RT min 2V CLINICAL HISTORY: fall eval for injury. Right hip pain. COMPARISON STUDY: None. FINDINGS: Irregular step-off at the femoral head/neck junction likely representing acute impacted sub capital femoral neck fracture. The visualized pelvic bones appear intact. The bones are osteopenic. R ight lateral hip soft tissue swelling. IMPRESSION: An irregular step-off at the right femoral head/neck junction likely representing an acu te impacted subcapital femoral neck fracture. ACT 112: Negative or not required by law. Electronically signed by: Osmin Robledo M.D. 08/04/2020 5:41 PM
[2020-08-04] MEDS ORDERED: HYDROmorphone INJ 0.5 MG/0.5 ML SYR IV STA ×2 (17:52→19:32)
[2020-08-04 17:55] LABS: Basophils # (auto) 0.01 K/uL (0-0.2); Basophils % (auto) 0.2 %; Eosinophils # (auto) 0.09 K/uL (0-0.5); Eosinophils % (auto) 1.9 %; Hematocrit (blood only) 35.9 % (37-47); Immature Granulocytes # (auto) 0.02 K/uL (0.00-0.02); Immature Granulocytes % (auto) 0.4 %; Lymphocytes # (auto) 0.95 K/uL (1.2-3.4); Lymphocytes % (auto) 19.8 %; Mean Corpuscular Hgb Conc 33.4 g/dL (32-36); Mean Corpuscular Volume 89.8 fL (80-100); Monocytes # (auto) 0.47 K/uL (0.11-0.59); Monocytes % (auto) 9.8 %; Neutrophils # (auto) 3.27 K/uL (1.4-6.5); Neutrophils % (auto) 67.9 %; Platelet Count 139 K/uL (130-400); RDW Coefficient of Variation 14.7 % (11.5-14.5); RDW Standard Deviation 48.6 fL (36.4-46.3); White Blood Count 4.81 K/uL (4.8-10.8)
[2020-08-04 18:10] LABS: INR 1.1 (0.9-1.1); Partial Thromboplastin Ratio 0.9; Partial Thromboplastin Time 23.6 Seconds (21.0-31.0); Prothrombin Time 10.8 Seconds (9.0-12.0)
[2020-08-04 18:12] LABS: BUN Creatinine Ratio 14.8 (10-20); Calcium 8.8 mg/dl (8.5-10.1); Creatinine Clr Calc Pharmacy 26.1 ml/min; Est GFR (African American) 37.7; Est GFR (Non-African American) 32.5; Potassium 4.1 mmol/L (3.5-5.1)
[2020-08-04] MEDS ORDERED: ACETAMINOPHEN 325 MG TAB PO PRN (20:42)
[2020-08-04] MEDS ORDERED: NITROGLYCERIN SL 0.4 MG/TAB TAB SL PRN (20:42)
[2020-08-04] MEDS ORDERED: MAGNESIUM HYDROXIDE SUSP 30 ML UDC PO PRN (20:42)
[2020-08-04] MEDS ORDERED: ONDANSETRON INJ 2 MG/ML 2 ML VIAL IV PRN (20:42)
[2020-08-04] MEDS ORDERED: ALBUTEROL 0.083% NEBU SOLN 3 ML VIAL INH PRN (20:42)
[2020-08-04] MEDS ORDERED: NALOXONE HCL 0.4 MG/1 ML VIAL/CARP IV PRN (20:42)
[2020-08-04] MEDS ORDERED: POLYETHYLENE (MIRALAX) 17 GM PACK PO PRN (20:42)
[2020-08-04] MEDS ORDERED: ALBUTEROL HFA 8 GM INHALER INH PRN (20:42)
[2020-08-04] MEDS ORDERED: bisacodyL 10 MG SUPP PR PRN (20:42)
[2020-08-04] MEDS: HYDROmorphone INJ 0.5 MG/0.5 ML SYR IV PRN (20:58)
--- NOTE | 2020-08-04 21:26 | History and Physical Report ---
DATE OF ADMISSION: 08/04/2020 CHIEF COMPLAINT: Status post fall, right hip fracture. HISTORY OF PRESENT ILLNESS: An 84-year-old female with past medical history significant for CAD status post stent, history of sick sinus syndrome, status post pacemaker, status post TAVR, chronic diastolic CHF, chronic kidney disease stage III, peripheral vascular disease, carotid stenosis bilateral, history of chronic respiratory failure on 2 liters oxygen all the time, COPD, pulmonary hypertension, peripheral artery disease, mild persistent asthma without complication, hypercholesterolemia, hypothyroidism, hyperlipidemia, GERD, fibromyalgia, osteoarthritis, chronic pain syndrome, macular degeneration of the right eye, iron deficiency anemia, history of thrombocytopenia, history of depression, anxiety disorder, history of TIA, history of right sided carotid endarterectomy, history of tobacco abuse. The patient currently , lives alone. Two daughters live close by. Comes with fall and found to have right hip fracture. The patient is somewhat hard to hear, seems to be in pain. It seems she was walking in the parking lot when she lost her balance and fell on the ground. As per patient there was a gyroscope repairer close by who helped her. She denies any loss of consciousness. She says she has hiatal hernia. She has always had some abdominal discomfort. She uses oxygen all the time and she cannot walk long; she gets short of breath. Currently denies any chest pain. Currently nauseous, had some headache. Denies any earache, no runny nose, no sore throat, no cough, no abdominal pain. Normal bowel and bladder movements. No rash anywhere. Afebrile. She says her appetite is okay and she can swallow okay. ALLERGIES: No known drug allergies. PAST MEDICAL HISTORY: As mentioned above. PAST SURGICAL HISTORY: Left heart catheterization, skin abscess drainage, EGD with biopsy, status post [employer]tronic dual chamber pacemaker for sick sinus syndrome, bare metal stent to RCA, partial removal of colon, appendectomy, cataracts, cholecystectomy, TAVR, total abdominal hysterectomy with removal of tubes. MEDICATIONS: The patient is on Tylenol 500 mg p.o. q. 6 hours p.r.n., albuterol inhalation q. 6 hours p.r.n., albuterol nebulization q. 6 hours p.r.n., albuterol inhalation every 4 hours p.r.n., aspirin 81 mg p.o. daily, Symbicort 2 puffs inhalation b.i.d., buspirone 5 mg p.o. a.m. and bedtime, cetirizine 10 mg p.o. at bedtime, vitamin D 25 mcg p.o. daily, vitamin B12 500 mcg p.o. daily, Lexapro 20 mg p.o. daily, Flonase 2 sprays intranasal daily, Lasix 20 mg p.o. 3 times a week, Imdur 90 mg p.o. daily, levothyroxine 25 mcg p.o. daily, melatonin 10 mg p.o. at bedtime, metoprolol tartrate 100 mg p.o. b.i.d., nitroglycerin 0.4 mg sublingual p.r.n., oxycodone/acetaminophen 1 tablet by mouth 2 times a day in the morning and at bedtime and may also take additional tablet as needed for pain at midday, Protonix 40 mg p.o. daily, Lyrica 100 mg p.o. b.i.d., Crestor 20 mg p.o. at bedtime, Spiriva inhaler 18 mcg inhalation daily, tizanidine 2 mg p.o. at bedtime, PreserVision AREDS 1 tablet p.o. daily. FAMILY HISTORY: Significant for mother has asthma, skin cancer, hypertension, stroke. Sister has cancer, diabetes; father has heart disorder. SOCIAL HISTORY: , lives alone currently. Daughters live close by. Former smoker, quit in 1963. Smoked 3/4 pack a day for 12 years. No alcohol use, no drug use. REVIEW OF SYMPTOMS: As per HPI. Rest of review of systems negative. PHYSICAL EXAMINATION: GENERAL: The patient is old, seems to be in pain, not in acute distress. VITAL SIGNS: Temperature 36.7, pulse 60, respiratory rate 21, blood pressure 116/67, oxygen 96% on 2 liters. HEENT: Pupils equal, round, and reactive to light. No pallor, no icterus. Oral mucosa dry. NECK: No neck masses palpable. CARDIOVASCULAR: S1, S2, regular rate and rhythm, no murmur, no gallop. RESPIRATORY SYSTEM: Normal AP diameter. No accessory muscle use. No wheezing, no crackles. ABDOMEN: Soft, bowel sounds present, nontender. No distention. CENTRAL NERVOUS SYSTEM: Alert and awake. Speech clear. No facial droop. Obeys simple commands. Moves extremities. EXTREMITIES: Right lower extremity is slightly shortened. No edema or swelling seen. LABORATORY DATA: WBC 4.8, hemoglobin 12, hematocrit 35.9, platelets 139, PT 10.8, INR 1.1, APTT 23.6. Sodium 144, potassium 4.1, chloride 110, bicarbonate 30, BUN 21, creatinine 1.45, serum glucose 142, calcium 8.8. SARS-CoV-2 RNA negative. Hip x-ray, irregular step of the right femoral head and neck junction, likely representing acute impacted subcapital femoral neck fracture. CT of the head, no acute intracranial findings. Chest x-ray, stable cardiomegaly and chronic interstitial thickening. Left-sided dual chamber pacemaker seen. No acute findings. Aortic stent is noted. Cervical spine CT, no acute fracture of the cervical spine. EKG: Atrial paced rhythm with prolonged AV conduction, rate of 60, no acute ST changes seen. ASSESSMENT AND PLAN: This 84-year-old female presents with mechanical fall and right hip fracture. 1. Mechanical fall, right hip fracture. The patient is hemodynamically stable. Labs are okay. Chest x-ray okay. EKG, no acute findings. The patient should be at acceptable risk to proceed with surgery. Because of her age and other comorbid conditions should be moderate risk for any procedures. Ortho consulted. We will keep her n.p.o., IV fluids, pain control. 2. History of chronic respiratory failure on 2 liters oxygen all the time, history of COPD, history of asthma, history of pulmonary hypertension. Continue home inhalers and nebs p.r.n. 3. History of coronary artery disease status post stent. Continue her statin, aspirin and beta sheridan, currently stable. 4. History of hypertension. The patient is on Lopressor, Imdur. We will monitor the blood pressure. 5. History of hyperlipidemia, on statin. 6. History of hypothyroidism, on Synthroid. 7. History of anxiety and depression. Continue her buspirone, Lexapro. 8. History of chronic kidney disease stage III. Baseline creatinine around 1.2 to 1.4, current creatinine of 1.4. Getting fluids. We will follow the labs. 9. Chronic diastolic congestive heart failure. The patient is on Lasix 20 mg p.o. 3 times a week. Getting fluids. We will monitor for any volume overload. 10. History of status post TAVR, 11. peripheral vascular disease, on aspirin and statin. 12. Gastroesophageal reflux disease, on Protonix. 13. Deep venous thrombosis prophylaxis, could not place SCDs as the patient has hip fracture and could not give anticoagulation because of the planned procedure tomorrow. Post-surgery anticoagulation as per orthopedics. DISPOSITION: Admit to medical floor. PT and OT prior to discharge. Social service to help with discharge planning. Code status: Level 1 full code. MTDD
[2020-08-04] MEDS: METOPROLOL TARTRATE 100 MG TAB PO SCH (21:51)
[2020-08-04] MEDS: busPIRone 5 MG TAB PO SCH (21:51)
[2020-08-04] MEDS: ROSUVASTATIN CALCIUM 20 MG TAB PO SCH (21:51)
[2020-08-04] MEDS: DOCUSATE SODIUM/SENNA 50/8.6MG TAB PO SCH (21:52)
[2020-08-04] MEDS: MELATONIN 3 MG TAB PO SCH (21:52)
[2020-08-04] MEDS: CETIRIZINE HCL 10 MG TABLET PO SCH (21:53)
[2020-08-04] MEDS: tiZANidine HCL 4 MG TABLET PO SCH (21:53)
[2020-08-04] MEDS: PREGABALIN 100 MG CAP PO SCH (21:55)
[2020-08-04] MEDS: oxyCODONE/ACETAMINOPHEN 5mg/325mg TAB PO PRN (21:55)
--- NOTE | 2020-08-04 21:55 | Anesthesiology Consultation ---
Date of Service August 04, 2020 Assessment & Plan Chart Review Chart Review: Acceptable Risk for Surgery, Patient NOT seen in Pre Admission Testing and Acceptable Risk for Labor Epidural Consults Requested none ASA ASA4 Proposed Anesthesia Anesthesia Type: General Anesthesia Line Insertion: Arterial line History Height/Weight Height: 5 ft 1 in Weight: 76.5 kg Allergies Allergy/AdvReac Type Severity Reaction Status Date / Time No Known Allergies Allergy Verified 08/04/20 18:26 Medications Home Medications Medication Instructions Recorded Confirmed Last Taken cetirizine 10 mg tablet 10 mg PO HS #90 tab 12/28/18 08/04/20 Unknown metoprolol tartrate 100 mg tablet 100 mg PO BID #180 tab 01/05/19 08/04/20 Unknown pantoprazole 40 mg tablet,delayed 40 mg PO QAM #90 tab 03/02/19 08/04/20 Unknown release albuterol sulfate [Ventolin HFA] 2 puff INHALATION Q4H PRN 08/01/19 08/04/20 Unknown furosemide 20 mg PO 3XWK 08/01/19 08/04/20 Unknown levothyroxine 25 mcg PO QAM 08/01/19 08/04/20 Unknown melatonin 10 mg PO HS 08/01/19 08/04/20 Unknown acetaminophen 500 mg PO Q6H PRN MDD 3 GMS 08/04/20 08/04/20 Unknown APAP/24 HOURS albuterol sulfate [Proventil] 2.5 mg INHALATION Q6H PRN 08/04/20 08/04/20 Unkn own aspirin [Aspirin Low-Strength] 81 mg PO DAILY 08/04/20 08/04/20 Unknown budesonide-formoterol [Symbicort] 2 puff INHALATION BID 08/04/20 08/04/20 Unknown buspirone 5 mg PO AMHS 08/04/20 08/04/20 Unknown cholecalciferol (vitamin D3) 25 mcg PO DAILY 08/04/20 08/04/20 Unknown [Vitamin D3] cyanocobalamin (vitamin B-12) 500 mcg PO DAILY 08/04/20 08/04/20 Unknown escitalopram oxalate 20 mg PO DAILY 08/04/20 08/04/20 Unknown fluticasone propionate [Flonase] 2 spray INTRANASAL DAILY 08/04/20 08/04/20 Unknown isosorbide mononitrate 30 mg PO DAILY 08/04/20 08/04/20 Unknown isosorbide mononitrate 60 mg PO DAILY 08/04/20 08/04/20 Unknown nitroglycerin [Nitrostat] 0.4 mg SUBLINGUAL DIRECTED PRN 08/04/20 08/04/20 Unknown oxycodone-acetaminophen See Rx Instructions .ROUTE .COMPLEX 08/04/20 08/04/20 Unknown pregabalin [Lyrica] 100 mg PO AMHS 08/04/20 08/04/20 Unknown rosuvastatin 20 mg PO HS 08/04/20 08/04/20 Unknown tiotropium bromide [Spiriva with 1 cap INHALATION DAILY 08/04/20 08/04/20 Unknown HandiHaler] tizanidine 2 mg PO HS 08/04/20 08/04/20 Unknown vit C,Q-Ri-fqagz-lutein-zeaxan 1 cap PO DAILY 08/04/20 08/04/20 Unknown [PreserVision AREDS-2] Active Medications Generic Name Dose Route Start Last Admin Trade Name Freq PRN Reason Stop Dose Admin Hydromorphone HCl 0.5 mg 08/04/20 20:42 08/04/20 20:58 Hydromorphone Inj 0.5 Mg/0.5 Ml Syr IV 08/18/20 20:41 0.5 mg Q3H PRN Administration Pain Past Medical History Medical History Abnormal CBC Abscess, cheek Allergic rhinitis Anemia Anemia Anxiety Aortic stenosis "echo 07/17/15 mod-severe aortic stenosis " CAD (coronary artery disease) "s/p RCA stent" Carotid stenosis Carotid stenosis, bilateral "carotid US 11/2014 + for 50%-69% stenosis bilaterally" Cellulitis Chest pain Chronic anemia Chronic back pain WITH B/L LE RADICULOPATHY Chronic obstructive pulmonary disease CKD (chronic kidney disease) stage 3, GFR 30-59 ml/min COPD, moderate Cough Depression Diverticular disease S/P PARTIAL COLON RESECTION Dyslipidemia Dyspnea on exertion Generalized osteoarthritis GERD (gastroesophageal reflux disease) GERD without esophagitis Hiatal hernia History of pacemaker "for SSS" History of TIA (transient ischemic attack) HTN (hypertension) Hyperlipidemia Lumbar disc disease Multiple joint pain Osteoarthritis Other specified disorders of arteries and arterioles Pacemaker, artificial PAD (peripheral artery disease) Spinal stenosis Unknown whether patient has any health problems Urinary frequency Vitamin D deficiency Exercise / Class Metabolic Activity III < 4 Walking/Shop/Light housework Past Family History Family History Daughter Family history of diabetes mellitus Sister Arthritis Stroke Father Coronary heart disease Mother Asthma Malignant neoplasm of skin Stroke Past Surgical History Surgical History H/O hand surgery RIGHT FINGER CYSTECTOMY History of appendectomy History of cardiac cath BMS TO RCA (2000) PPM IMPLANTED 2000 (? REPLACEMENT ) History of cholecystectomy History of colon resection PARTIAL RESECTION (? 2/2 DIVERTICULAR DISEASE) History of colonoscopy History of esophagogastroduodenoscopy (EGD) History of heart valve replacement TAVR (2016) History of neurologic surgery History of partial colectomy History of right-sided carotid endarterectomy History of total hysterectomy S/P carotid endarterectomy Stented coronary artery "bare metal stent to RCA 2000" Past Anesthesia History No Hx of Anesthesia Complications and No Family Hx of Anesthesia Complications History of PONV No Hx of PONV and No Hx of Motion Sickness Social History Smoking Status: Former smoker Hx Alcohol Use: No Hx Substance Use: No substance use type: does not use Physical Exam Vital Signs Last Vital Signs Temp 36.7 C 08/04/20 17:03 Pulse 60 08/04/20 19:47 Resp 21 08/04/20 19:47 BP 116/67 08/04/20 19:46 Pulse Ox 96 08/04/20 19:47 Testing Laboratory Results 08/04/20 17:40 08/04/20 17:40 PT 10.8 Seconds (9.0-12.0) 08/04/20 17:40 INR 1.1 (0.9-1.1) 08/04/20 17:40 APTT 23.6 Seconds (21.0-31.0) 08/04/20 17:40 Blood Type AB Positive 08/04/20 18:29 Antibody Screen NEGATIVE 08/04/20 18:29 Electrocardiogram Date: 08/04/20 Findings: + pertinent finding (A paced rhythm @60 w/prolonged AV conduction) Chest X-Ray Date: 08/04/20 Findings: + NAD Echocardiogram Date: 01/27/19 EF: 65% LV Function: normal Other Findings: + atrial enlargement (LA severely enlarged) and + diastolic dysfunction (Grade 2) Valvular Disease: + MR (mild-mod.) and + pertinent finding (TR-mild-mod.; S/P TAVR w/Core Valve bioprosthesis) Other Testing 04/20/2018-Carotid U/S-DYLAN-70% +;LICA-50-69%
[2020-08-04 22:14] LABS: Appearance Urine Clear (Clear); Bacteria Urine Automated Negative (Negative); Bilirubin Urine Negative (Negative); Blood Urine Negative (Negative); Color Urine Yellow; Epithelial Cell Urine Auto >30 /lpf (0-5); Glucose Urine UA Negative (Negative); Ketones Urine Trace (Negative); Leukocyte Esterase Urine Negative (Negative); Nitrite Urine Negative (Negative); Protein Urine 2+ (Negative); RBC Urine Automated 0-4 /hpf (0-4); Specific Gravity Urine 1.023 (1.000-1.030); Urobilinogen Urine Negative (Negative); pH Urine 6.5 (4.5-7.5)
[2020-08-04] MEDS: SODIUM CHLORIDE 0.9% 1000ML 1,000 ML IV SCH (22:58)
[2020-08-05] MEDS: HYDROmorphone INJ 0.5 MG/0.5 ML SYR IV PRN ×3 (04:10→23:27)
[2020-08-05] MEDS: LEVOTHYROXINE SODIUM 25 MCG TABLET PO SCH (05:26)
[2020-08-05] MEDS ORDERED: ceFAZolin 2000MG 2,000 MG/15 ML SYR IV SCH (06:00)
[2020-08-05 06:41] LABS: Hematocrit (blood only) 29.4 % (37-47); Hemoglobin 9.5 g/dL (12.0-16.0); Mean Corpuscular Hemoglobin 29.2 pg (25-34); Mean Corpuscular Hgb Conc 32.3 g/dL (32-36); Mean Corpuscular Volume 90.5 fL (80-100); Mean Platelet Volume 11.3 fL (7.4-10.4); Platelet Count 112 K/uL (130-400); RDW Coefficient of Variation 15.1 % (11.5-14.5); RDW Standard Deviation 50.1 fL (36.4-46.3); Red Blood Count 3.25 M/uL (4.2-5.4); White Blood Count 4.98 K/uL (4.8-10.8)
[2020-08-05 07:07] LABS: BUN Creatinine Ratio 18.9 (10-20); Calcium 8.6 mg/dl (8.5-10.1); Creatinine Clr Calc Pharmacy 27.1 ml/min; Est GFR (Non-African American) 33.6; Potassium 4.1 mmol/L (3.5-5.1)
[2020-08-05] MEDS: ASPIRIN 81 MG ECTAB PO SCH (07:40)
[2020-08-05] MEDS: CHOLECALCIFEROL 1,000 UNITS 25 MCG TAB PO SCH (07:40)
[2020-08-05] MEDS: CYANOCOBALAMIN 500 MCG TABLET (VITAMIN B-12) PO SCH (07:41)
[2020-08-05] MEDS: FLUTICASONE/VILANTEROL 100/25MCG 14 PUFFS/INHALER INH SCH (07:41)
[2020-08-05] MEDS: UMECLIDINIUM BROMIDE 62.5MCG/BLISTER 7 PUFFS/INHALER INH SCH (07:42)
[2020-08-05] MEDS: FLUTICASONE PROPIONATE NA SPR 16 GM BTL SCH (07:42)
[2020-08-05] MEDS: ISOSORBIDE MONO EXTENDED REL 60 MG TABCR PO SCH (07:51)
[2020-08-05] MEDS: PREGABALIN 100 MG CAP PO SCH ×2 (07:51→20:07)
[2020-08-05] MEDS: PANTOprazole 40 MG TAB PO SCH (07:52)
[2020-08-05] MEDS: ESCITALOPRAM OXALATE 20 MG TAB PO SCH (07:52)
[2020-08-05] MEDS: ISOSORBIDE MONO EXTENDED REL 30 MG TABCR PO SCH (07:52)
[2020-08-05] MEDS: busPIRone 5 MG TAB PO SCH ×2 (07:53→20:04)
[2020-08-05] MEDS: METOPROLOL TARTRATE 100 MG TAB PO SCH ×2 (07:53→20:04)
[2020-08-05] MEDS: oxyCODONE/ACETAMINOPHEN 5mg/325mg TAB PO PRN (07:56)
--- NOTE | 2020-08-05 08:07 | CT Scan Report ---
CT hip RT wo con HISTORY: 84 years-old Female Right hip fracture acute right hip pain status post fall COMPARISON: Right hip radiographs 08/04/2020 TECHNIQUE: Multiple axial CT images of the right hip were obtained without the use of IV contrast. A dose lowering technique was used consistent with the principals of JOSSELIN. FINDINGS: Colonic diverticulosis. Hysterectomy. No acute process of the imaged intrapelvic structures. There is an acute intertrochanteric comminuted fracture of the right femur with a cervical extension of the f racture. Lesser trochanteric fracture fragment is displaced medially 1.4 cm. Moderate right hip osteo arthritis without dislocation or avascular necrosis. The imaged right hemipelvis appears intact. Reac tive edema with blood products surrounds the acute fracture extending into the anterior thigh outside the [id number]. IMPRESSION: 1. Acute, comminuted and slightly displaced intertrochanteric fracture of the right femur with basice rvical fracture extension. 2. Moderate right hip osteoarthritis. 3. No dislocation. 3. No subcapital fracture to correlate with the questioned plain film findings. ACT 112: Negative or not required by law. The above report was generated using voice recognition software. It may contain grammatical, syntax o r spelling errors. Electronically signed by: Teofilo Harris M.D. 08/05/2020 8:06 AM
[2020-08-05] MEDS ORDERED: NON-FORMULARY MEDICATION (Vit C,E-Zn-Coppr-Lutein-Zeaxan [Preservision Areds-2] 250-90-40- PO SCH (09:00)
--- NOTE | 2020-08-05 09:11 | Orthopedic Consultation ---
Date of Consultation August 05, 2020 Assessment & Plan (1) Intertrochanteric fracture of right hip: She has a right hip intertrochanteric fracture. This will require ORIF to regain the ability to ambulate. She is in agreement with this plan. She has been cleared by internal medicine and anesthesia. We will plan for a short cephalomedullary nail to complete the fixation. Risks, benefits, and alternatives of surgery were explained in detail. The surgical procedure, as well as postoperative recovery and rehabilitation, was also explained in detail. Risks include bleeding; infection; damage to surrounding structures such as nerves, blood vessels, and tendons that run in the area; persistent pain or stiffness; nonunion; malunion; hardware failure; painful prominent hardware requiring removal; or need for further surgery. The patient understands all of this and wishes to proceed with surgery. Preoperative workup was completed today, and informed consent was obtained. Present on Admission?: Yes History of Present Illness Reason for Consultation: Right hip fracture Requesting Physician: Dr. Sue Attending Physician: Nash Beltran MD History of Present Illness Ms. Sadler is an 84-year old female who had a ground-level fall yesterday onto her right hip. She had immediate pain and inability to bear weight on her right leg. This was a mechanical fall. She says that she just tripped. She did not lose consciousness or hit her head. No dizziness or lightheadedness. She denies any other extremity injury other than her right hip. She is having some back pain. Allergies Allergy/AdvReac Type Severity Reaction Status Date / Time No Known Allergies Allergy Verified 08/04/20 18:26 Home Medications Medication Instructions Recorded Confirmed Type cetirizine 10 mg tablet 10 mg PO HS #90 tab 12/28/18 08/04/20 Rx metoprolol tartrate 100 mg tablet 100 mg PO BID #180 tab 01/05/19 08/04/20 Rx pantoprazole 40 mg tablet,delayed 40 mg PO QAM #90 tab 03/02/19 08/04/20 Rx release albuterol sulfate [Ventolin HFA] 2 puff INHALATION Q4H PRN 08/01/19 08/04/20 History furosemide 20 mg PO 3XWK 08/01/19 08/04/20 History levothyroxine 25 mcg PO QAM 08/01/19 08/04/20 History melatonin 10 mg PO HS 08/01/19 08/04/20 History acetaminophen 500 mg PO Q6H PRN MDD 3 GMS 08/04/20 08/04/20 History APAP/24 HOURS albuterol sulfate [Proventil] 2.5 mg INHALATION Q6H PRN 08/04/20 08/04/20 History aspirin [Aspirin Low-Strength] 81 mg PO DAILY 08/04/20 08/04/20 History budesonide-formoterol [Symbicort] 2 puff INHALATION BID 08/04/20 08/04/20 History buspirone 5 mg PO AMHS 08/04/20 08/04/20 History cholecalciferol (vitamin D3) 25 mcg PO DAILY 08/04/20 08/04/20 History [Vitamin D3] cyanocobalamin (vitamin B-12) 500 mcg PO DAILY 08/04/20 08/04/20 History escitalopram oxalate 20 mg PO DAILY 08/04/20 08/04/20 History fluticasone propionate [Flonase] 2 spray INTRANASAL DAILY 08/04/20 08/04/20 History isosorbide mononitrate 30 mg PO DAILY 08/04/20 08/04/20 History isosorbide mononitrate 60 mg PO DAILY 08/04/20 08/04/20 History nitroglycerin [Nitrostat] 0.4 mg SUBLINGUAL DIRECTED PRN 08/04/20 08/04/20 History oxycodone-acetaminophen See Rx Instructions .ROUTE .COMPLEX 08/04/20 08/04/20 History pregabalin [Lyrica] 100 mg PO AMHS 08/04/20 08/04/20 History rosuvastatin 20 mg PO HS 08/04/20 08/04/20 History tiotropium bromide [Spiriva with 1 cap INHALATION DAILY 08/04/20 08/04/20 History HandiHaler] tizanidine 2 mg PO HS 08/04/20 08/04/20 History vit C,K-Mn-zagbk-lutein-zeaxan 1 cap PO DAILY 08/04/20 08/04/20 History [PreserVision AREDS-2] Patient History Medical History Abnormal CBC Abscess, cheek Allergic rhinitis Anemia Anemia Anxiety Aortic stenosis "echo 07/17/15 mod-severe aortic stenosis " CAD (coronary artery disease) "s/p RCA stent" Carotid stenosis Carotid stenosis, bilateral "carotid US 11/2014 + for 50%-69% stenosis bilaterally" Cellulitis Chest pain Chronic anemia Chronic back pain WITH B/L LE RADICULOPATHY Chronic obstructive pulmonary disease CKD (chronic kidney disease) stage 3, GFR 30-59 ml/min COPD, moderate Cough Depression Diverticular disease S/P PARTIAL COLON RESECTION Dyslipidemia Dyspnea on exertion Generalized osteoarthritis GERD (gastroesophageal reflux disease) GERD without esophagitis Hiatal hernia History of pacemaker "for SSS" History of TIA (transient ischemic attack) HTN (hypertension) Hyperlipidemia Lumbar disc disease Multiple joint pain Osteoarthritis Other specified disorders of arteries and arterioles Pacemaker, artificial PAD (peripheral artery disease) Spinal stenosis Unknown whether patient has any health problems Urinary frequency Vitamin D deficiency Surgical History H/O hand surgery RIGHT FINGER CYSTECTOMY History of appendectomy History of cardiac cath BMS TO RCA (2000) PPM IMPLANTED 2000 (? REPLACEMENT ) History of cholecystectomy History of colon resection PARTIAL RESECTION (? 2/2 DIVERTICULAR DISEASE) History of colonoscopy History of esophagogastroduodenoscopy (EGD) History of heart valve replacement TAVR (2016) History of neurologic surgery History of partial colectomy History of right-sided carotid endarterectomy History of total hysterectomy S/P carotid endarterectomy Stented coronary artery "bare metal stent to RCA 2000" Family History Daughter Family history of diabetes mellitus Sister Arthritis Stroke Father Coronary heart disease Mother Asthma Malignant neoplasm of skin Stroke Social History Smoking Status: Never smoker Second Hand Exposure: No; Do You Dip or Chew Tobacco: No; Tobacco Cessation Education Requested by Patient: No Hx Alcohol Use: No Hx Substance Use: No Preferred Language: Gabonese Communication Ability: Effective Gate Technician Required: No Beliefs That Will Affect Care: None marital status: Single Current Living Situation: Alone Feels Safe at Home: Yes Safety Concerns: Feels Safe At This Time Assistive Devices: None Physical Exam Physical Exam: General: The patient appears well developed and well nourished. Awake, alert, and oriented x 3. Appropriate mood and affect. Gait and station not assessed due to the known hip fracture. Normal coordination and balance. Skin: The skin over the right hip shows no open wounds. Inspection/Palpation: Visual inspection reveals shortening and external rotation of the leg. There is mild swelling and tenderness to palpation of the thigh and hip area. Compartments are soft and compressible. Range of Motion: Hip range of motion is limited due to pain. Stability: Ligamentous stability was not tested due to the known fracture. Strength: Hip strength is limited due to pain. Intact ankle dorsiflexion and plantarflexion. Sensation: The patient reports no numbness in the leg. Vascular: Leg is warm and well perfused. No diffuse edema. Results & Data ([facility]) Vital Signs (Past 12 Hours) Vital Signs Temp Pulse Resp BP Pulse Ox 08/05/20 07:49 36.8 C 65 24 114/50 L 94 08/05/20 07:10 60 24 97 08/04/20 23:21 36.5 C 61 14 104/55 L 93 08/04/20 22:09 36.4 C L 62 22 101/61 94 Diagnostic Findings X-rays and CT scan of the right hip are reviewed. Is much more apparent on the CT scan, but she has a minimally displaced but moderately comminuted intratrochanteric hip fracture. (1) Intertrochanteric fracture of right hip Encounter type: initial encounter Fracture type: closed Fracture alignment: displaced Qualified Code(s): S72.141A - Displaced intertrochanteric fracture of right femur, initial encounter for closed fracture
[2020-08-05] MEDS ORDERED: ceFAZolin 2000MG 2,000 MG/15 ML SYR IV ONE (09:14)
[2020-08-05] MEDS: SODIUM CHLORIDE 0.9% 1000ML 1,000 ML IV SCH ×2 (10:12→20:03)
--- NOTE | 2020-08-05 11:18 | Hospitalist Progress Note ---
Date of Service August 05, 2020 Assessment & Plan (1) Intertrochanteric fracture of right hip: This is an 84-year-old female presents with mechanical fall and right hip fracture. 1. Mechanical fall, right hip fracture. The patient is hemodynamically stable. Labs w/o major abnormalities. Chest x-ray unremarkable. EKG, no acute findings. The patient should be at acceptable risk to proceed with surgery. Because of her age and other comorbid conditions should be moderate risk for any procedures. Orthopedics consulted. We will keep her n.p.o., IV fluids, pain control. 2. History of chronic respiratory failure on 2 liters oxygen all the time, history of COPD, history of asthma, history of pulmonary hypertension. Continue home inhalers and nebs p.r.n. 3. History of CAD status post stent. Continue her statin, aspirin and beta sheridan, currently stable. 4. History of hypertension. The patient is on Lopressor, Imdur. We will monitor the blood pressure. 5. History of hyperlipidemia, on statin. 6. History of hypothyroidism, on Synthroid. 7. History of anxiety and depression. Continue her buspirone, Lexapro. 8. History of CKD stage III. Baseline creatinine around 1.2 to 1.4, current creatinine of 1.4. Getting fluids. We will follow the labs. 9. Chronic diastolic CHF. The patient is on Lasix 20 mg p.o. 3 times a week. Getting fluids. We will monitor for any volume overload. 10. History of status post TAVR, 11. peripheral vascular disease, on aspirin and statin. 12. Gastroesophageal reflux disease, on Protonix. DVT prophylaxis, could not place SCDs as the patient has hip fracture and could not give anticoagulation because of the planned procedure. Post-surgery anticoagulation as per orthopedics. Admission and Anticipated Discharge Date Admission Date: August 04, 2020 Subjective Pt seen in follow up of R hip fx. Pt is resting in bed in NAD, using suppl. O2, which is chronic Currently only complains of R hip pain Orthopedics a the bedside , plan for surgical repair today Review of Systems Review of Systems: All systems reviewed & are unremarkable except as noted in HPI & below Constitutional: no fever and no chills Respiratory: no cough and no dyspnea Cardiovascular: no chest pain, no palpitations and no edema Gastrointestinal: no abdominal pain, no nausea and no vomiting Physical Exam Physical Exam: GENERAL: elderly female laying in bed, not in acute distress HEENT: NC, AT, Pupils equal, round, and reactive to light. No pallor, no icterus NECK: No neck masses palpable. CARDIOVASCULAR: S1, S2, regular rate and rhythm, no murmur, no gallop. RESPIRATORY SYSTEM: Normal AP diameter. No accessory muscle use. No wheezing, no crackles. Using suppl. O2 2l (chronic) ABDOMEN: Soft, bowel sounds present, nontender. No distention. NEURO: Alert and awake. Speech clear. No facial droop. Moves extremities. EXTREMITIES: Right lower extremity is slightly shortened. No edema or swelling seen. Tender to palp. Results & Data Results & Data ([facility]) Vital Signs (Past 12 Hours) Vital Signs Temp Pulse Resp BP Pulse Ox 08/05/20 07:49 36.8 C 65 24 114/50 L 94 08/05/20 07:10 60 24 97 08/04/20 23:21 36.5 C 61 14 104/55 L 93 Laboratory Results 08/05/20 08/05/20 08/04/20 Range/Units 06:19 06:19 Unknown WBC 4.98 (4.8-10.8) K/uL RBC 3.25 L (4.2-5.4) M/uL Hgb 9.5 L (12.0-16.0) g/dL Hct 29.4 L (37-47) % MCV 90.5 (80-100) fL MCH 29.2 (25-34) pg MCHC 32.3 (32-36) g/dL RDW Std Deviation 50.1 H (36.4-46.3) fL RDW Coeff of Beatriz 15.1 H (11.5-14.5) % Plt Count 112 L (130-400) K/uL MPV 11.3 H (7.4-10.4) fL Immature Gran % (Auto) % Neut % (Auto) % Lymph % (Auto) % Kimble % (Auto) % Eos % (Auto) % Baso % (Auto) % Neut # (Auto) (1.4-6.5) K/uL Lymph # (Auto) (1.2-3.4) K/uL Kimble # (Auto) (0.11-0.59) K/uL Eos # (Auto) (0-0.5) K/uL Baso # (Auto) (0-0.2) K/uL Immature Gran # (Auto) (0.00-0.02) K/uL PT (9.0-12.0) Seconds INR (0.9-1.1) APTT (21.0-31.0) Seconds PTT Ratio Sodium 143 (136-145) mmol/L Potassium 4.1 (3.5-5.1) mmol/L Chloride 109 H (98-107) mmol/L Carbon Dioxide 25 (21-32) mmol/L Anion Gap 9.0 (3-11) BUN 27 H (7-18) mg/dl Creatinine 1.41 H (0.6-1.2) mg/dl Est Cr Clr Drug Dosing 27.1 ml/min Est GFR ( Amer) 39.0 Est GFR (Non-Af Amer) 33.6 BUN/Creatinine Ratio 18.9 (10-20) Glucose 123 H (70-99) mg/dl Calcium 8.6 (8.5-10.1) mg/dl Urine Color Yellow Urine Appearance Clear (Clear) Urine pH 6.5 (4.5-7.5) Ur Specific Geddes 1.023 (1.000-1.030) Urine Protein 2+ H (Negative) Urine Glucose (UA) Negative (Negative) Urine Ketones Trace H (Negative) Urine Blood Negative (Negative) Urine Nitrite Negative (Negative) Urine Bilirubin Negative (Negative) Urine Urobilinogen Negative (Negative) Ur Leukocyte Esterase Negative (Negative) Urine WBC (Auto) 1-5 (0-5) /hpf Urine RBC (Auto) 0-4 (0-4) /hpf U Hyaline Cast (Auto) 5-10 H (0-5) /lpf U Epithel Cells (Auto) >30 H (0-5) /lpf Urine Bacteria (Auto) Negative (Negative) Ur Renal Epithelial Cell Not Reportable COVID-19 Eval Order SARS-CoV-2, RNA, NAAT (NEGATIVE) Blood Type Antibody Screen 08/04/20 08/04/20 08/04/20 Range/Units 18:29 18:02 18:02 WBC (4.8-10.8) K/uL RBC (4.2-5.4) M/uL Hgb (12.0-16.0) g/dL Hct (37-47) % MCV (80-100) fL MCH (25-34) pg MCHC (32-36) g/dL RDW Std Deviation (36.4-46.3) fL RDW Coeff of Beatriz (11.5-14.5) % Plt Count (130-400) K/uL MPV (7.4-10.4) fL Immature Gran % (Auto) % Neut % (Auto) % Lymph % (Auto) % Kimble % (Auto) % Eos % (Auto) % Baso % (Auto) % Neut # (Auto) (1.4-6.5) K/uL Lymph # (Auto) (1.2-3.4) K/uL Kimble # (Auto) (0.11-0.59) K/uL Eos # (Auto) (0-0.5) K/uL Baso # (Auto) (0-0.2) K/uL Immature Gran # (Auto) (0.00-0.02) K/uL PT (9.0-12.0) Seconds INR (0.9-1.1) APTT (21.0-31.0) Seconds PTT Ratio Sodium (136-145) mmol/L Potassium (3.5-5.1) mmol/L Chloride (98-107) mmol/L Carbon Dioxide (21-32) mmol/L Anion Gap (3-11) BUN (7-18) mg/dl Creatinine (0.6-1.2) mg/dl Est Cr Clr Drug Dosing ml/min Est GFR ( Amer) Est GFR (Non-Af Amer) BUN/Creatinine Ratio (10-20) Glucose (70-99) mg/dl Calcium (8.5-10.1) mg/dl Urine Color Urine Appearance (Clear) Urine pH (4.5-7.5) Ur Specific Geddes (1.000-1.030) Urine Protein (Negative) Urine Glucose (UA) (Negative) Urine Ketones (Negative) Urine Blood (Negative) Urine Nitrite (Negative) Urine Bilirubin (Negative) Urine Urobilinogen (Negative) Ur Leukocyte Esterase (Negative) Urine WBC (Auto) (0-5) /hpf Urine RBC (Auto) (0-4) /hpf U Hyaline Cast (Auto) (0-5) /lpf U Epithel Cells (Auto) (0-5) /lpf Urine Bacteria (Auto) (Negative) Ur Renal Epithelial Cell COVID-19 Eval Order Covid19 IDNow [facility] SARS-CoV-2, RNA, NAAT NEGATIVE (NEGATIVE) Blood Type AB Positive Antibody Screen NEGATIVE 08/04/20 08/04/20 08/04/20 Range/Units 17:40 17:40 17:40 WBC 4.81 (4.8-10.8) K/uL RBC 4.00 L (4.2-5.4) M/uL Hgb 12.0 (12.0-16.0) g/dL Hct 35.9 L (37-47) % MCV 89.8 (80-100) fL MCH 30.0 (25-34) pg MCHC 33.4 (32-36) g/dL RDW Std Deviation 48.6 H (36.4-46.3) fL RDW Coeff of Beatriz 14.7 H (11.5-14.5) % Plt Count 139 (130-400) K/uL MPV 12.0 H (7.4-10.4) fL Immature Gran % (Auto) 0.4 % Neut % (Auto) 67.9 % Lymph % (Auto) 19.8 % Kimble % (Auto) 9.8 % Eos % (Auto) 1.9 % Baso % (Auto) 0.2 % Neut # (Auto) 3.27 (1.4-6.5) K/uL Lymph # (Auto) 0.95 L (1.2-3.4) K/uL Kimble # (Auto) 0.47 (0.11-0.59) K/uL Eos # (Auto) 0.09 (0-0.5) K/uL Baso # (Auto) 0.01 (0-0.2) K/uL Immature Gran # (Auto) 0.02 (0.00-0.02) K/uL PT 10.8 (9.0-12.0) Seconds INR 1.1 (0.9-1.1) APTT 23.6 (21.0-31.0) Seconds PTT Ratio 0.9 Sodium 144 (136-145) mmol/L Potassium 4.1 (3.5-5.1) mmol/L Chloride 110 H (98-107) mmol/L Carbon Dioxide 30 (21-32) mmol/L Anion Gap 4.0 (3-11) BUN 21 H (7-18) mg/dl Creatinine 1.45 H (0.6-1.2) mg/dl Est Cr Clr Drug Dosing 26.1 ml/min Est GFR ( Amer) 37.7 Est GFR (Non-Af Amer) 32.5 BUN/Creatinine Ratio 14.8 (10-20) Glucose 142 H (70-99) mg/dl Calcium 8.8 (8.5-10.1) mg/dl Urine Color Urine Appearance (Clear) Urine pH (4.5-7.5) Ur Specific Geddes (1.000-1.030) Urine Protein (Negative) Urine Glucose (UA) (Negative) Urine Ketones (Negative) Urine Blood (Negative) Urine Nitrite (Negative) Urine Bilirubin (Negative) Urine Urobilinogen (Negative) Ur Leukocyte Esterase (Negative) Urine WBC (Auto) (0-5) /hpf Urine RBC (Auto) (0-4) /hpf U Hyaline Cast (Auto) (0-5) /lpf U Epithel Cells (Auto) (0-5) /lpf Urine Bacteria (Auto) (Negative) Ur Renal Epithelial Cell COVID-19 Eval Order SARS-CoV-2, RNA, NAAT (NEGATIVE) Blood Type Antibody Screen Medications Administered Current Inpatient Medications Acetaminophen (Acetaminophen 325 Mg Tab) 650 mg PO Q4H PRN PRN Reason: pain/fever Stop: 09/03/20 20:41 Last Admin: 08/05/20 05:24 Dose: 650 mg Documented by: Albuterol (Albuterol Hfa 8 Gm Inhaler) 2 puffs INH Q4H PRN PRN Reason: Shortness Of Breath Or Wheezing Stop: 09/03/20 20:41 Albuterol (Albuterol 0.083% Nebu Soln 3 Ml Vial) 2.5 mg INH Q6H PRN PRN Reason: Shortness Of Breath,Wheezing Or Cough Stop: 09/03/20 20:41 Last Admin: 08/05/20 07:10 Dose: 2.5 mg Documented by: Aspirin (Aspirin 81 Mg Ectab) 81 mg PO DAILY MAXX Stop: 09/04/20 08:59 Last Admin: 08/05/20 07:40 Dose: Not Given Documented by: Bisacodyl (Bisacodyl 10 Mg Supp) 10 mg TX DAILY PRN PRN Reason: Constipation Stop: 09/03/20 20:41 Buspirone HCl (Buspirone 5 Mg Tab) 5 mg PO AMHS MAXX Stop: 09/03/20 20:59 Last Admin: 08/05/20 07:53 Dose: 5 mg Documented by: Cetirizine HCl (Cetirizine Hcl 10 Mg Tablet) 10 mg PO HS MAXX Stop: 09/03/20 20:59 Last Admin: 08/04/20 21:53 Dose: 10 mg Documented by: Cyanocobalamin (Cyanocobalamin 500 Mcg Tablet (Vitamin B-12)) 500 mcg PO DAILY MAXX Stop: 09/04/20 08:59 Last Admin: 08/05/20 07:41 Dose: Not Given Documented by: Escitalopram Oxalate (Escitalopram Oxalate 20 Mg Tab) 20 mg PO DAILY MAXX Stop: 09/04/20 08:59 Last Admin: 08/05/20 07:52 Dose: 20 mg Documented by: Fluticasone Propionate (Fluticasone Propionate Na Spr 16 Gm Btl) 2 sprays NA DAILY MAXX Stop: 09/04/20 08:59 Last Admin: 08/05/20 07:42 Dose: Not Given Documented by: Fluticasone/Vilanterol (Fluticasone/Vilanterol 100/25mcg 14 Puffs/Inhaler) 1 puffs INH DAILY MAXX Stop: 09/04/20 08:59 Last Admin: 08/05/20 07:41 Dose: 1 puffs Documented by: Furosemide (Furosemide 20 Mg Tab) 20 mg PO MoWeFr@0900 MAXX Stop: 09/05/20 08:59 Hydromorphone HCl (Hydromorphone Inj 0.5 Mg/0.5 Ml Syr) 0.5 mg IV Q3H PRN PRN Reason: Pain Stop: 08/18/20 20:41 Last Admin: 08/05/20 07:05 Dose: 0.5 mg Documented by: Sodium Chloride (Nss 1000ml) 1,000 mls @ 100 mls/hr IV .Q10H MAXX Stop: 09/03/20 20:41 Last Admin: 08/05/20 10:12 Dose: 100 mls/hr Documented by: Isosorbide Mononitrate (Isosorbide Kimble Extended Rel 30 Mg Tabcr) 30 mg PO DAILY [facility] Stop: 09/04/20 08:59 Last Admin: 08/05/20 07:52 Dose: 30 mg Documented by: Isosorbide Mononitrate (Isosorbide Kimble Extended Rel 60 Mg Tabcr) 60 mg PO DAILY [facility] Stop: 09/04/20 08:59 Last Admin: 08/05/20 07:51 Dose: 60 mg Documented by: Levothyroxine Sodium (Levothyroxine Sodium 25 Mcg Tablet) 25 mcg PO DAILYBB [facility] Stop: 09/04/20 06:29 Last Admin: 08/05/20 05:26 Dose: 25 mcg Documented by: Magnesium Hydroxide (Magnesium Hydroxide Susp 30 Ml Udc) 30 ml PO DAILY PRN PRN Reason: Constipation Stop: 09/03/20 20:41 Melatonin (Melatonin 3 Mg Tab) 9 mg PO HS [facility] Stop: 09/03/20 20:59 Last Admin: 08/04/20 21:52 Dose: 9 mg Documented by: Metoprolol Tartrate (Metoprolol Tartrate 100 Mg Tab) 100 mg PO BID [facility] Stop: 09/03/20 20:59 Last Admin: 08/05/20 07:53 Dose: 100 mg Documented by: Naloxone HCl (Naloxone Hcl 0.4 Mg/1 Ml Vial/Carp) 0.1 mg IV UD PRN PRN Reason: Opiate Overdose Stop: 09/03/20 20:41 Nitroglycerin (Nitroglycerin Sl 0.4 Mg/Tab Tab) 0.4 mg SL UD PRN PRN Reason: Chest Pain Stop: 09/03/20 20:41 Ondansetron HCl (Ondansetron Inj 2 Mg/Ml 2 Ml Vial) 4 mg IV Q6H PRN PRN Reason: Nausea Stop: 09/03/20 20:41 Oxycodone/Acetaminophen (Oxycodone/Acetaminophen 5mg/325mg Tab) 1 tab PO TID PRN PRN Reason: Pain Stop: 08/18/20 20:41 Last Admin: 08/05/20 07:56 Dose: 1 tab Documented by: Pantoprazole Sodium (Pantoprazole 40 Mg Tab) 40 mg PO QAM [facility] Stop: 09/04/20 08:59 Last Admin: 08/05/20 07:52 Dose: 40 mg Documented by: Polyethylene Glycol (Polyethylene (Miralax) 17 Gm Pack) 17 gm PO DAILY PRN PRN Reason: Constipation Stop: 09/03/20 20:41 Pregabalin (Pregabalin 100 Mg Cap) 100 mg PO [facility] MAXX Stop: 09/03/20 20:59 Last Admin: 08/05/20 07:51 Dose: 100 mg Documented by: Rosuvastatin Calcium (Rosuvastatin Calcium 20 Mg Tab) 20 mg PO [facility] Stop: 09/03/20 20:59 Last Admin: 08/04/20 21:51 Dose: 20 mg Documented by: Senna/Docusate Sodium (Docusate Sodium/Senna 50/8.6mg Tab) 2 tab PO [facility] Stop: 09/03/20 20:59 Last Admin: 08/04/20 21:52 Dose: 2 tab Documented by: Tizanidine HCl (Tizanidine Hcl 4 Mg Tablet) 2 mg PO [facility] Stop: 09/03/20 20:59 Last Admin: 08/04/20 21:53 Dose: 2 mg Documented by: Umeclidinium [place] (Umeclidinium [place] 62.5mcg/Blister 7 Puffs/Inhaler) 1 puffs INH DAILY MAXX Stop: 09/04/20 08:59 Last Admin: 08/05/20 07:42 Dose: 1 puffs Documented by: Vitamin D (Cholecalciferol 1,000 Units 25 Mcg Tab) 1,000 units PO DAILY MAXX Stop: 09/04/20 08:59 Last Admin: 08/05/20 07:40 Dose: Not Given Documented by: (1) Intertrochanteric fracture of right hip Encounter type: initial encounter Fracture type: closed Fracture alignment: displaced Qualified Code(s): S72.141A - Displaced intertrochanteric fracture of right femur, initial encounter for closed fracture
--- NOTE | 2020-08-05 11:34 | Electrocardiogram Report ---
Test Reason : Blood Pressure : / mmHG Vent. Rate : 060 BPM Atrial Rate : 060 BPM P-R Int : 238 ms QRS Dur : 090 ms QT Int : 448 ms P-R-T Axes : 019 005 060 degrees QTc Int : 448 ms Atrial-paced rhythm with prolonged AV conduction Abnormal ECG No previous ECGs available Confirmed by Ulises Rivera ([id number]) on 08/05/2020 11:33:54 AM Referred By: REFERRED SELF Confirmed By:Ulises Rivera
[2020-08-05] MEDS ORDERED: PROPOFOL IV EMULSION 10 MG/ML 20 ML VIAL IV ONE (11:36)
[2020-08-05] MEDS ORDERED: fentaNYL citrate 100 MCG/2 ML VIAL ONE ×2 (11:36→13:40)
[2020-08-05] MEDS ORDERED: LIDOCAINE HCL 2% 2 ML VIAL/AMP(20MG/ML) INFIL ONE (11:36)
[2020-08-05] MEDS ORDERED: ONDANSETRON INJ 2 MG/ML 2 ML VIAL ONE (11:36)
--- NOTE | 2020-08-05 11:48 | Electrocardiogram Report ---
Test Reason : Blood Pressure : / mmHG Vent. Rate : 062 BPM Atrial Rate : 062 BPM P-R Int : 244 ms QRS Dur : 082 ms QT Int : 436 ms P-R-T Axes : 063 -04 062 degrees QTc Int : 442 ms Atrial-paced rhythm with prolonged AV conduction Abnormal ECG When compared with ECG of 04-AUG-2020 17:46, (unconfirmed) No significant change was found Confirmed by Ulises Rivera ([id number]) on 08/05/2020 11:47:35 AM Referred By: REFERRED SELF Confirmed By:Ulises Rivera
[2020-08-05] MEDS ORDERED: LIDOCAINE/EPINE 2% 1:100,000 20ML ONE (12:17)
[2020-08-05] MEDS ORDERED: LIDOCAINE HCL 1% 20 ML VIAL ONE (12:18)
[2020-08-05] MEDS ORDERED: BUPIVACAINE 0.5 % 5 MG/1 ML MPF 30ML VIAL ONE (12:18)
[2020-08-05] MEDS ORDERED: NEOSTIGMINE METHYLSULFATE 5 MG/5 ML SYR ONE (13:13)
[2020-08-05] MEDS ORDERED: GLYCOPYRROLATE 0.2 MG/ML VIAL ONE (13:13)
[2020-08-05] MEDS ORDERED: ROCURONIUM BROMIDE 10 MG/ML 5 ML VIAL IV ONE (13:13)
--- NOTE | 2020-08-05 13:13 | Post Operative Brief Note ---
Immediate Post Op Note v1 Date of Surgery August 05, 2020 Pre & Post Diagnosis Operation Date: 08/05/20 11:00 Pre-Op Diagnosis: Right hip intertrochanteric fracture Post-Op Diagnosis: Right hip intertrochanteric fracture I identified the patient and participated in the time-out.: Yes Procedure Operation Date: 08/05/20 11:00 Actual Procedures Right hip cephalomedullary nailing for intertrochanteric fracture - Nelson Valadez M.D. Surgeon Nelson Valadez Sales Ledger Administrator Jason Delaney PA-C Estimated Blood Loss 50 Findings Consistent with Post-Op Diagnosis
--- NOTE | 2020-08-05 13:17 | Operative Report ---
Post Operative Report Pre & Post Diagnosis Operation Date: 08/05/20 11:00 Pre-Op Diagnosis: Right hip intertrochanteric fracture Post-Op Diagnosis: Right hip intertrochanteric fracture I identified the patient and participated in the time-out.: Yes Procedure Operation Date: 08/05/20 11:00 Actual Procedures Right hip cephalomedullary nailing for intertrochanteric fracture (19394) - Nelson Valadez M.D. Surgeon Nelson Valadez Inspector [employer]es Jason Delaney PA-C Estimated Blood Loss 50 Findings Consistent with Post-Op Diagnosis Specimens None Drains None Anesthesia Type General Complications none Disposition Disposition: Recovery Room Indications Ms. Sadler is an 84-year-old female who injured her right hip during a ground- level fall yesterday. History, clinical exam, and imaging were consistent with the above diagnosis. Risks, benefits, and alternatives of surgery were explained in detail. The patient understood all this and wished to proceed. Description of Procedure Implants: Synthes Short (170mm) 130 degree 12mm Trochanteric Fixation Nail, 11mm helical blade, 5mm distal locking screw Patient was identified in the preoperative holding area. Operative extremity was marked. Patient was then brought back to the operating room, and general anesthesia was induced without complication. Appropriate weight-based dose of Ancef was infused intravenously for antibiotic prophylaxis. Patient was then positioned on the fracture table with the traction apparatus. The nonoperative hip was flexed and placed into the well leg christensen. Longitudinal traction was applied to the operative hip. Fracture reduction was then performed under fluoroscopic imaging. Once acceptable reduction had been achieved, the right hip was then prepped and draped in a standard sterile fashion using Chlorhexidine prep. I first made an incision just proximal to the greater trochanter in line with the femoral shaft axis, and split the fibers of the iliotibial band. I then bluntly palpated down to the greater trochanter and inserted the guidewire down to the tip of the greater trochanter. It was appropriately positioned on AP and lateral images, and then driven into the proximal femur. I then inserted the soft tissue protector down to the tip of the greater trochanter and then passed the entry reamer over top of the guidewire. It was advanced down towards the lesser trochanter to open the proximal femur. I then inserted the Synthes short TFN attached to the targeting arm into the proximal femur. I malleted it down to an appropriate depth for proper trajectory of the helical blade into the femoral head. Once the nail was at an appropriate depth, I then attached the targeting guide for the helical blade onto the targeting arm. Incision was made in line with the guide through the skin and iliotibial band. The guide sleeve was placed against the lateral cortex of the femur. Guidewire was then inserted through the guide and up into the femoral neck and head. I verified proper placement and trajectory under both AP and lateral images. I advanced the guidewire to the subchondral bone in the femoral head and verified proper depth on orthogonal images. I then measured the depth off of the guidewire. The drill for the helical blade was then set at an appropriate level to match the measured length. The drill was then advanced to the set depth. An appropriate length helical blade was selected and malleted into place over the guidewire. I then deployed the set screw proximally to prevent rotation of the helical blade during fracture compression. Fracture compression was then applied using the compression ring on the helical blade targeting sleeve. I then made an incision for the distal locking screw in line with the drill guide through skin and iliotibial band. I then placed the drill sleeve down on the lateral cortex of the femur and drilled through the distal locking hole. Screw length was then measured off of the calibrated drill bit, and an appropriate length was selected and then inserted. The screw length was verified under fluoroscopic imaging. Final fluoroscopic images were then obtained to ensure proper hardware placement, screw length, and fracture reduction. The wounds were then copiously irrigated with sterile saline. I then closed the iliotibial band and deep dermal tissue with #0 Vicryl suture. Subcutaneous tissues closed with 3-0 Vicryl suture, and skin was closed with arnoldo. Sterile dressings were then applied with Xeroform, sterile gauze, and foam tape. Drapes were then removed and traction apparatus was disconnected. The patient was awakened from general anesthesia, transferred over to the stretcher, and taken to the Post Anesthesia Care Unit in stable condition. There were no immediate complications from the procedure. I was present and scrubbed for the entire procedure. I attest to the content of the Intraoperative Record and any orders documented therein. Any exceptions are noted below.
--- NOTE | 2020-08-05 13:30 | Fluoroscopy Report ---
FL hip RT 2-3V HISTORY: 84 years-old Female RT TROCH NAIL acute fracture of the right hip COMPARISON: Right hip radiographs and CT 08/04/2020 TECHNIQUE: 3 spot fluoroscopic views of the right hip were obtained utilizing 67.0 seconds fluoroscop y time . FINDINGS: Acute intertrochanteric fracture of the right femur. Status post placement of a trochanteric nail wit h medullary vito. There is improved near anatomic alignment. Hardware appears intact. Soft tissue swel ling with deep tissue air. IMPRESSION: Fluoroscopic assistance as above. Please see operative report for further details. ACT 112: Negative or not required by law. The above report was generated using voice recognition software. It may contain grammatical, syntax o r spelling errors. Electronically signed by: Teofilo Harris M.D. 08/05/2020 1:29 PM
[2020-08-05] MEDS ORDERED: PHENYLEPHRINE 100MCG/ML 5ML SYR ONE (13:41)
[2020-08-05] MEDS ORDERED: LABETALOL HCL IV 5 MG/ML 20ML IV PRN (13:44)
[2020-08-05] MEDS ORDERED: ONDANSETRON INJ 2 MG/ML 2 ML VIAL IV PRN (13:44)
[2020-08-05] MEDS ORDERED: ePHEDrine sulfate 50 MG/ML AMP IV PRN (13:44)
[2020-08-05] MEDS ORDERED: ATROPINE SULFATE 0.1 MG/ML 10ML SYR IV PRN (13:44)
[2020-08-05] MEDS ORDERED: NALOXONE HCL 0.4 MG/1 ML VIAL/CARP IV PRN ×2 (13:44→15:13)
[2020-08-05] MEDS ORDERED: PROMETHAZINE HCL 12.5 MG in SODIUM CHLORIDE 0.9% 50 ML IV PRN (13:44)
[2020-08-05] MEDS: fentaNYL citrate 100 MCG/2 ML VIAL IV PRN ×3 (13:45→14:00)
--- NOTE | 2020-08-05 14:28 | XRay Report ---
XR hip RT min 2V HISTORY: 84 years-old Female Post-Operative implant position acute fracture of the right femur COMPARISON: Right hip radiographs 08/04/2020 TECHNIQUE: The right hip FINDINGS: Status post placement of an intratrochanteric nail with medullary vito and distal cannulated screw fix ating the acute intertrochanteric fracture. There is persistent mild cortical step-off noted both sup eriorly and inferiorly. Lateral skin arnoldo. Expected postoperative soft tissue swelling and deep ti ssue air. No unexpected opaque foreign body. IMPRESSION: Status post placement of an intratrochanteric nail with medullary vito fixating the acute intertrochanteric fracture of the right femur. ACT 112: Negative or not required by law. The above report was generated using voice recognition software. It may contain grammatical, syntax o r spelling errors. Electronically signed by: Teofilo Harris M.D. 08/05/2020 2:26 PM
--- NOTE | 2020-08-05 14:37 | Anesthesiology Progress Note ---
Date of Service August 05, 2020 Anesthesia Post Procedure Vital Signs Vital Signs: Temp Pulse Pulse Pulse Resp BP BP 08/05/20 14:30 60 21 146/70 H 08/05/20 14:20 60 20 133/96 08/05/20 14:10 60 21 121/44 L 08/05/20 14:00 60 20 140/60 08/05/20 13:50 61 19 98/71 L 08/05/20 13:40 60 15 105/56 L 08/05/20 13:33 36.7 C 60 21 109/51 L 08/05/20 07:49 36.8 C 65 24 114/50 L 08/05/20 07:10 60 24 08/04/20 23:21 36.5 C 61 14 104/55 L 08/04/20 22:09 36.4 C L 62 22 101/61 08/04/20 19:47 60 21 08/04/20 19:46 60 8 L 116/67 08/04/20 19:36 62 22 131/99 08/04/20 19:31 60 21 145/84 H 08/04/20 19:00 60 16 112/59 L 08/04/20 18:30 60 12 135/71 08/04/20 18:00 62 20 122/77 08/04/20 17:03 36.7 C 80 14 197/101 H Pulse Ox 08/05/20 14:30 91 08/05/20 14:20 91 08/05/20 14:10 94 08/05/20 14:00 95 08/05/20 13:50 97 08/05/20 13:40 95 08/05/20 13:33 100 08/05/20 07:49 94 08/05/20 07:10 97 08/04/20 23:21 93 08/04/20 22:09 94 08/04/20 19:47 96 08/04/20 19:46 97 08/04/20 19:36 96 08/04/20 19:31 97 08/04/20 19:00 97 08/04/20 18:30 96 08/04/20 18:00 98 08/04/20 17:03 98 Pain Intensity Right Hip: Pain Intensity: 3 Transfer of Care Handoff Completed per policy Notes Mental Status: alert / awake / arousable Patient Amnestic to Procedure: Yes Nausea / Vomiting: adequately controlled Pain: adequately controlled Airway Patency, RR, SpO2: stable & adequate BP & HR: stable & adequate Hydration State: stable & adequate Anesthetic Complications: no major complications apparent
[2020-08-05] MEDS: ROSUVASTATIN CALCIUM 20 MG TAB PO SCH (20:04)
[2020-08-05] MEDS: ENOXAPARIN INJ 40 MG/0.4 ML SYR SQ SCH (20:05)
[2020-08-05] MEDS: MELATONIN 3 MG TAB PO SCH (20:07)
[2020-08-05] MEDS: DOCUSATE SODIUM/SENNA 50/8.6MG TAB PO SCH (20:07)
[2020-08-05] MEDS: tiZANidine HCL 4 MG TABLET PO SCH (20:07)
[2020-08-05] MEDS: CETIRIZINE HCL 10 MG TABLET PO SCH (20:08)
[2020-08-06] MEDS: SODIUM CHLORIDE 0.9% 1000ML 1,000 ML IV SCH (05:25)
[2020-08-06] MEDS: LEVOTHYROXINE SODIUM 25 MCG TABLET PO SCH (05:26)
[2020-08-06 06:08] LABS: Hematocrit (blood only) 25.7 % (37-47); Hemoglobin 8.3 g/dL (12.0-16.0); Mean Corpuscular Hemoglobin 29.9 pg (25-34); Mean Corpuscular Hgb Conc 32.3 g/dL (32-36); Mean Corpuscular Volume 92.4 fL (80-100); RDW Coefficient of Variation 15.4 % (11.5-14.5); RDW Standard Deviation 52.5 fL (36.4-46.3); Red Blood Count 2.78 M/uL (4.2-5.4); White Blood Count 4.92 K/uL (4.8-10.8)
[2020-08-06 06:44] LABS: BUN Creatinine Ratio 19.8 (10-20); Calcium 7.9 mg/dl (8.5-10.1); Creatinine Clr Calc Pharmacy 31.8 ml/min; Est GFR (African American) 47.4; Est GFR (Non-African American) 40.9; Potassium 4.1 mmol/L (3.5-5.1)
[2020-08-06 06:48] LABS: ALC (manual) 0.26 K/uL (1.2-3.4); ANC (manual) 4.36 K/uL (1.4-6.5); Anisocytosis Present; Basophilic Stippling 1+; Lymphocytes # (manual) 0.26 K/uL (1.2-3.4); Lymphocytes % (manual) 5.2 %; Mean Platelet Volume 10.9 fL (7.4-10.4); Monocytes % (manual) 6.1 %; Neutrophils # (manual) 4.36 K/uL (1.4-6.5); Neutrophils % (manual) 88.7 %; Ovalocytes 1+; Platelet Count 78 K/uL (130-400)
[2020-08-06] MEDS: HYDROmorphone INJ 0.5 MG/0.5 ML SYR IV PRN ×2 (07:47→10:59)
[2020-08-06] MEDS: UMECLIDINIUM BROMIDE 62.5MCG/BLISTER 7 PUFFS/INHALER INH SCH (08:00)
--- NOTE | 2020-08-06 08:03 | Anesthesiology Progress Note ---
Date of Service August 06, 2020 Anesthesia Post Procedure Vital Signs Vital Signs: Temp Pulse Pulse Resp BP Pulse Ox Pulse Ox 08/06/20 07:10 37.0 C 65 16 149/67 H 94 08/06/20 05:29 94 08/06/20 05:26 95 08/06/20 03:44 37.7 C H 65 14 120/61 93 08/05/20 22:55 36.9 C 60 14 106/56 L 94 08/05/20 20:19 60 120/67 08/05/20 18:21 36.3 C L 64 20 134/75 94 08/05/20 15:58 36.5 C 60 15 108/64 96 08/05/20 15:31 95 08/05/20 15:10 36.3 C L 61 15 107/63 93 08/05/20 14:55 60 21 100/49 L 91 08/05/20 14:40 37.0 C 60 20 149/72 H 94 08/05/20 14:30 60 21 146/70 H 91 08/05/20 14:20 60 20 133/96 91 08/05/20 14:10 60 21 121/44 L 94 08/05/20 14:00 60 20 140/60 95 08/05/20 13:50 61 19 98/71 L 97 08/05/20 13:40 60 15 105/56 L 95 08/05/20 13:33 36.7 C 60 21 109/51 L 100 Notes Mental Status: alert / awake / arousable and participated in evaluation Patient Amnestic to Procedure: Yes Nausea / Vomiting: adequately controlled Pain: adequately controlled Airway Patency, RR, SpO2: stable & adequate BP & HR: stable & adequate Hydration State: stable & adequate Anesthetic Complications: no major complications apparent and Pt Satisfied with anesthetic care
[2020-08-06] MEDS: PREGABALIN 100 MG CAP PO SCH ×2 (08:04→20:46)
[2020-08-06] MEDS: ISOSORBIDE MONO EXTENDED REL 30 MG TABCR PO SCH (08:04)
[2020-08-06] MEDS: CHOLECALCIFEROL 1,000 UNITS 25 MCG TAB PO SCH (08:04)
[2020-08-06] MEDS: ISOSORBIDE MONO EXTENDED REL 60 MG TABCR PO SCH (08:05)
[2020-08-06] MEDS: CYANOCOBALAMIN 500 MCG TABLET (VITAMIN B-12) PO SCH (08:05)
[2020-08-06] MEDS: busPIRone 5 MG TAB PO SCH ×2 (08:06→20:50)
[2020-08-06] MEDS: ESCITALOPRAM OXALATE 20 MG TAB PO SCH (08:06)
[2020-08-06] MEDS: FUROSEMIDE 20 MG TAB PO SCH (08:06)
[2020-08-06] MEDS: METOPROLOL TARTRATE 100 MG TAB PO SCH ×2 (08:06→20:52)
[2020-08-06] MEDS: ASPIRIN 81 MG ECTAB PO SCH (08:06)
[2020-08-06] MEDS: PANTOprazole 40 MG TAB PO SCH (08:07)
[2020-08-06] MEDS: FLUTICASONE PROPIONATE NA SPR 16 GM BTL SCH (08:07)
[2020-08-06] MEDS: FLUTICASONE/VILANTEROL 100/25MCG 14 PUFFS/INHALER INH SCH (08:07)
--- NOTE | 2020-08-06 08:13 | Hospitalist Progress Note ---
Date of Service August 06, 2020 Assessment & Plan (1) Intertrochanteric fracture of right hip: Acute blood loss and hemodilution related anemia This is an 84-year-old female presents with mechanical fall and right hip fracture. 1. Mechanical fall, right hip fracture. The patient is hemodynamically stable. Labs w/o major abnormalities on admission. Chest x-ray unremarkable. EKG, no acute findings. The patient should be at acceptable risk to proceed with surgery. Because of her age and other comorbid conditions should be moderate risk for any procedures. Orthopedics consulted. Now s/p Right TFN (08/05/2020) w/ Dr. Valadez Hgb 8.3 (Acute blood loss and hemodilution related anemia) Will stop IVF now, cont. to closly monitor H&H Dressing blood tinged Plt down to 78K on ASA and enoxaparin DVT ppx per ortho PT per ortho 2. Hx of Chronic respiratory failure on 2 L oxygen all the time, history of COPD, history of asthma, history of pulmonary hypertension. Continue home inhalers and nebs p.r.n. 3. History of CAD status post stent. Continue her statin, aspirin and beta sheridan, currently stable. 4. History of hypertension. The patient is on Lopressor, Imdur. We will monitor the blood pressure. 5. History of hyperlipidemia, on statin. 6. History of hypothyroidism, on Synthroid. 7. History of anxiety and depression. Continue her buspirone, Lexapro. 8. History of CKD stage III. Baseline creatinine around 1.2 to 1.4, current creatinine of 1.4. Getting fluids on admission, will stop now. We will follow the labs. 9. Chronic diastolic CHF. The patient is on Lasix 20 mg p.o. 3 times a week. Getting fluids on admission, will stop now. We will monitor for any volume overload. 10. Hx of Status post TAVR, 11. Peripheral vascular disease, on aspirin and statin. 12. GERD, on Protonix. DVT prophylaxis, Post-surgery anticoagulation as per orthopedics. Currently pt is on ASA and enoxaparin 40 daily Admission and Anticipated Discharge Date Admission Date: August 04, 2020 Subjective Pt seen in follow up of fall and R hip fx, anemia, chronic resp. failure Now POD 1 s/p Right TFN Having some pain in right hip and thigh this AM. No fever, chills, chest pain, shortness of breath, and. pain, n/v. Hgb down to 8.3, Plt down to 78 Review of Systems Review of Systems: All systems reviewed & are unremarkable except as noted in HPI & below Constitutional: no fever and no chills Respiratory: no cough and no dyspnea Cardiovascular: no chest pain and no palpitations Gastrointestinal: no abdominal pain, no nausea and no vomiting Physical Exam Physical Exam: GENERAL: elderly female laying in bed, not in acute distress, on suppl. O2 HEENT: NC/AT, EOMI, PERRL. No pallor, no icterus NECK: No neck masses palpable. CARDIOVASCULAR: S1, S2, regular rate and rhythm, no murmur, no gallop. RESPIRATORY SYSTEM: Normal AP diameter. No accessory muscle use. No wheezing, no crackles. Using suppl. O2 ABDOMEN: Soft, bowel sounds present, nontender. No distention. NEURO: Alert and awake. Speech clear. No facial droop. Moves extremities. EXTREMITIES: Right thigh edema, dressings over surg. site blood tinged. Tender to palp. Results & Data Results & Data ([facility]) Vital Signs (Past 12 Hours) Vital Signs Temp Pulse Resp BP Pulse Ox Pulse Ox 08/06/20 07:10 37.0 C 65 16 149/67 H 94 08/06/20 05:29 94 08/06/20 05:26 95 08/06/20 03:44 37.7 C H 65 14 120/61 93 08/05/20 22:55 36.9 C 60 14 106/56 L 94 08/05/20 20:19 60 120/67 Laboratory Results 08/06/20 08/06/20 Range/Units 05:37 05:37 WBC 4.92 (4.8-10.8) K/uL RBC 2.78 L (4.2-5.4) M/uL Hgb 8.3 L (12.0-16.0) g/dL Hct 25.7 L (37-47) % MCV 92.4 (80-100) fL MCH 29.9 (25-34) pg MCHC 32.3 (32-36) g/dL RDW Std Deviation 52.5 H (36.4-46.3) fL RDW Coeff of Beatriz 15.4 H (11.5-14.5) % Plt Count 78 L (130-400) K/uL MPV 10.9 H (7.4-10.4) fL Neutrophils % (Manual) 88.7 % Lymphocytes % (Manual) 5.2 % Monocytes % (Manual) 6.1 % Neutrophils # (Manual) 4.36 (1.4-6.5) K/uL Total Absolute Neuts 4.36 (1.4-6.5) K/uL Lymphocytes # (Manual) 0.26 L (1.2-3.4) K/uL Total Abs Lymphocytes 0.26 L (1.2-3.4) K/uL Monocytes # (Manual) 0.30 (0.11-0.59) K/uL Basophilic Stippling 1+ Anisocytosis Present Ovalocytes 1+ Sodium 144 (136-145) mmol/L Potassium 4.1 (3.5-5.1) mmol/L Chloride 112 H (98-107) mmol/L Carbon Dioxide 24 (21-32) mmol/L Anion Gap 8.0 (3-11) BUN 24 H (7-18) mg/dl Creatinine 1.20 (0.6-1.2) mg/dl Est Cr Clr Drug Dosing 31.8 ml/min Est GFR ( Amer) 47.4 Est GFR (Non-Af Amer) 40.9 BUN/Creatinine Ratio 19.8 (10-20) Glucose 111 H (70-99) mg/dl Calcium 7.9 L (8.5-10.1) mg/dl Medications Administered Current Inpatient Medications Albuterol (Albuterol Hfa 8 Gm Inhaler) 2 puffs INH Q4H PRN PRN Reason: Shortness Of Breath Or Wheezing Stop: 09/03/20 20:41 Albuterol (Albuterol 0.083% Nebu Soln 3 Ml Vial) 2.5 mg INH Q6H PRN PRN Reason: Shortness Of Breath,Wheezing Or Cough Stop: 09/03/20 20:41 Last Admin: 08/05/20 07:10 Dose: 2.5 mg Documented by: Aspirin (Aspirin 81 Mg Ectab) 81 mg PO DAILY MAXX Stop: 09/04/20 08:59 Last Admin: 08/05/20 07:40 Dose: Not Given Documented by: Bisacodyl (Bisacodyl 10 Mg Supp) 10 mg VA DAILY PRN PRN Reason: Constipation Stop: 09/03/20 20:41 Buspirone HCl (Buspirone 5 Mg Tab) 5 mg PO AMHS MAXX Stop: 09/03/20 20:59 Last Admin: 08/05/20 20:04 Dose: 5 mg Documented by: Cetirizine HCl (Cetirizine Hcl 10 Mg Tablet) 10 mg PO HS MAXX Stop: 09/03/20 20:59 Last Admin: 08/05/20 20:08 Dose: 10 mg Documented by: Cyanocobalamin (Cyanocobalamin 500 Mcg Tablet (Vitamin B-12)) 500 mcg PO DAILY MAXX Stop: 09/04/20 08:59 Last Admin: 08/05/20 07:41 Dose: Not Given Documented by: Enoxaparin Sodium (Enoxaparin Inj 40 Mg/0.4 Ml Syr) 40 mg SQ Q24H MAXX Stop: 09/04/20 15:12 Last Admin: 08/05/20 20:05 Dose: 40 mg Documented by: Escitalopram Oxalate (Escitalopram Oxalate 20 Mg Tab) 20 mg PO DAILY MAXX Stop: 09/04/20 08:59 Last Admin: 08/05/20 07:52 Dose: 20 mg Documented by: Fluticasone Propionate (Fluticasone Propionate Na Spr 16 Gm Btl) 2 sprays NA DAILY MAXX Stop: 09/04/20 08:59 Last Admin: 08/05/20 07:42 Dose: Not Given Documented by: Fluticasone/Vilanterol (Fluticasone/Vilanterol 100/25mcg 14 Puffs/Inhaler) 1 puffs INH DAILY MAXX Stop: 09/04/20 08:59 Last Admin: 08/05/20 07:41 Dose: 1 puffs Documented by: Furosemide (Furosemide 20 Mg Tab) 20 mg PO MoWeFr@[id number] [facility] Stop: 09/05/20 08:59 Hydromorphone HCl (Hydromorphone Inj 0.5 Mg/0.5 Ml Syr) 0.5 mg IV Q3H PRN PRN Reason: Pain Stop: 08/18/20 20:41 Last Admin: 08/06/20 07:47 Dose: 0.5 mg Documented by: Isosorbide Mononitrate (Isosorbide [place] Extended Rel 30 Mg Tabcr) 30 mg PO DAILY [facility] Stop: 09/04/20 08:59 Last Admin: 08/05/20 07:52 Dose: 30 mg Documented by: Isosorbide Mononitrate (Isosorbide [place] Extended Rel 60 Mg Tabcr) 60 mg PO DAILY [facility] Stop: 09/04/20 08:59 Last Admin: 08/05/20 07:51 Dose: 60 mg Documented by: Levothyroxine Sodium (Levothyroxine Sodium 25 Mcg Tablet) 25 mcg PO DAILYBB [facility] Stop: 09/04/20 06:29 Last Admin: 08/06/20 05:26 Dose: 25 mcg Documented by: Magnesium Hydroxide (Magnesium Hydroxide Susp 30 Ml Udc) 30 ml PO DAILY PRN PRN Reason: Constipation Stop: 09/03/20 20:41 Melatonin (Melatonin 3 Mg Tab) 9 mg PO HS [facility] Stop: 09/03/20 20:59 Last Admin: 08/05/20 20:07 Dose: 9 mg Documented by: Metoprolol Tartrate (Metoprolol Tartrate 100 Mg Tab) 100 mg PO BID [facility] Stop: 09/03/20 20:59 Last Admin: 08/05/20 20:04 Dose: 100 mg Documented by: Naloxone HCl (Naloxone Hcl 0.4 Mg/1 Ml Vial/Carp) 0.1 mg IV UD PRN PRN Reason: Opiate Overdose Stop: 09/03/20 20:41 Naloxone HCl (Naloxone Hcl 0.4 Mg/1 Ml Vial/Carp) 0.1 mg IV UD PRN PRN Reason: Opioid Overdose Stop: 09/04/20 15:12 Nitroglycerin (Nitroglycerin Sl 0.4 Mg/Tab Tab) 0.4 mg SL UD PRN PRN Reason: Chest Pain Stop: 09/03/20 20:41 Ondansetron HCl (Ondansetron Inj 2 Mg/Ml 2 Ml Vial) 4 mg IV Q6H PRN PRN Reason: Nausea Stop: 09/03/20 20:41 Pantoprazole Sodium (Pantoprazole 40 Mg Tab) 40 mg PO QAM [facility] Stop: 09/04/20 08:59 Last Admin: 08/05/20 07:52 Dose: 40 mg Documented by: Polyethylene Glycol (Polyethylene (Miralax) 17 Gm Pack) 17 gm PO DAILY PRN PRN Reason: Constipation Stop: 09/03/20 20:41 Pregabalin (Pregabalin 100 Mg Cap) 100 mg PO [facility] MAXX Stop: 09/03/20 20:59 Last Admin: 08/05/20 20:07 Dose: 100 mg Documented by: Rosuvastatin Calcium (Rosuvastatin Calcium 20 Mg Tab) 20 mg PO HS MAXX Stop: 09/03/20 20:59 Last Admin: 08/05/20 20:04 Dose: 20 mg Documented by: Senna/Docusate Sodium (Docusate Sodium/Senna 50/8.6mg Tab) 2 tab PO HS MAXX Stop: 09/03/20 20:59 Last Admin: 08/05/20 20:07 Dose: 2 tab Documented by: Tizanidine HCl (Tizanidine Hcl 4 Mg Tablet) 2 mg PO HS MAXX Stop: 09/03/20 20:59 Last Admin: 08/05/20 20:07 Dose: 2 mg Documented by: Umeclidinium [place] (Umeclidinium [place] 62.5mcg/Blister 7 Puffs/Inhaler) 1 puffs INH DAILY MAXX Stop: 09/04/20 08:59 Last Admin: 08/05/20 07:42 Dose: 1 puffs Documented by: Vitamin D (Cholecalciferol 1,000 Units 25 Mcg Tab) 1,000 units PO DAILY MAXX Stop: 09/04/20 08:59 Last Admin: 08/05/20 07:40 Dose: Not Given Documented by: (1) Intertrochanteric fracture of right hip Encounter type: initial encounter Fracture type: closed Fracture alignment: displaced Qualified Code(s): S72.141A - Displaced intertrochanteric fracture of right femur, initial encounter for closed fracture
--- NOTE | 2020-08-06 09:24 | Orthopedic Progress Note ---
Date of Service August 06, 2020 Assessment & Plan (1) Intertrochanteric fracture of right hip: POD 1 s/p Right TFN PT/OT protocol DVT prophylaxis with Enoxaparin, SCD's, MIRNA's Pain managment as written Hgb 8.3 DC planning - as per med service Admission and Anticipated Discharge Date Admission Date: August 04, 2020 Subjective POD 1 s/p Right TFN Having some pain this AM. No other complaints. States she's not sure she wants to get up with PT. Discussed need for being more ambulatory. No other complaints. Physical Exam Physical Exam: Dressings with some noted bloody drainage in the proximal dressing. Other dressings benign. Thigh with some swelling but soft. Calves soft,NT. NV intact. Toes mobile. Results & Data ([facility]) Vital Signs (Past 12 Hours) Vital Signs Temp Pulse Resp BP Pulse Ox Pulse Ox 08/06/20 07:10 37.0 C 65 16 149/67 H 94 08/06/20 05:29 94 08/06/20 05:26 95 08/06/20 03:44 37.7 C H 65 14 120/61 93 08/05/20 22:55 36.9 C 60 14 106/56 L 94 Laboratory Results Laboratory Results WBC 4.92 K/uL (4.8-10.8) 08/06/20 05:37 RBC 2.78 M/uL (4.2-5.4) L 08/06/20 05:37 Hgb 8.3 g/dL (12.0-16.0) L 08/06/20 05:37 Hct 25.7 % (37-47) L 08/06/20 05:37 MCV 92.4 fL (80-100) 08/06/20 05:37 MCH 29.9 pg (25-34) 08/06/20 05:37 MCHC 32.3 g/dL (32-36) 08/06/20 05:37 RDW Std Deviation 52.5 fL (36.4-46.3) H 08/06/20 05:37 RDW Coeff of Beatriz 15.4 % (11.5-14.5) H 08/06/20 05:37 Plt Count 78 K/uL (130-400) L 08/06/20 05:37 MPV 10.9 fL (7.4-10.4) H 08/06/20 05:37 Immature Gran % (Auto) 0.4 % 08/04/20 17:40 Neut % (Auto) 67.9 % 08/04/20 17:40 Lymph % (Auto) 19.8 % 08/04/20 17:40 [place] % (Auto) 9.8 % 08/04/20 17:40 Eos % (Auto) 1.9 % 08/04/20 17:40 Baso % (Auto) 0.2 % 08/04/20 17:40 Neut # (Auto) 3.27 K/uL (1.4-6.5) 08/04/20 17:40 Lymph # (Auto) 0.95 K/uL (1.2-3.4) L 08/04/20 17:40 [place] # (Auto) 0.47 K/uL (0.11-0.59) 08/04/20 17:40 Eos # (Auto) 0.09 K/uL (0-0.5) 08/04/20 17:40 Baso # (Auto) 0.01 K/uL (0-0.2) 08/04/20 17:40 Immature Gran # (Auto) 0.02 K/uL (0.00-0.02) 08/04/20 17:40 Neutrophils % (Manual) 88.7 % 08/06/20 05:37 Lymphocytes % (Manual) 5.2 % 08/06/20 05:37 Monocytes % (Manual) 6.1 % 08/06/20 05:37 Neutrophils # (Manual) 4.36 K/uL (1.4-6.5) 08/06/20 05:37 Total Absolute Neuts 4.36 K/uL (1.4-6.5) 08/06/20 05:37 Lymphocytes # (Manual) 0.26 K/uL (1.2-3.4) L 08/06/20 05:37 Total Abs Lymphocytes 0.26 K/uL (1.2-3.4) L 08/06/20 05:37 Monocytes # (Manual) 0.30 K/uL (0.11-0.59) 08/06/20 05:37 Basophilic Stippling 1+ 08/06/20 05:37 Anisocytosis Present 08/06/20 05:37 Ovalocytes 1+ 08/06/20 05:37 PT 10.8 Seconds (9.0-12.0) 08/04/20 17:40 INR 1.1 (0.9-1.1) 08/04/20 17:40 APTT 23.6 Seconds (21.0-31.0) 08/04/20 17:40 PTT Ratio 0.9 08/04/20 17:40 Sodium 144 mmol/L (136-145) 08/06/20 05:37 Potassium 4.1 mmol/L (3.5-5.1) 08/06/20 05:37 Chloride 112 mmol/L (98-107) H 08/06/20 05:37 Carbon Dioxide 24 mmol/L (21-32) 08/06/20 05:37 Anion Gap 8.0 (3-11) 08/06/20 05:37 BUN 24 mg/dl (7-18) H 08/06/20 05:37 Creatinine 1.20 mg/dl (0.6-1.2) 08/06/20 05:37 Est Cr Clr Drug Dosing 31.8 ml/min 08/06/20 05:37 Est GFR ( Amer) 47.4 08/06/20 05:37 Est GFR (Non-Af Amer) 40.9 08/06/20 05:37 BUN/Creatinine Ratio 19.8 (10-20) 08/06/20 05:37 Glucose 111 mg/dl (70-99) H 08/06/20 05:37 Calcium 7.9 mg/dl (8.5-10.1) L 08/06/20 05:37 Urine Color Yellow 08/04/20 Unknown Urine Appearance Clear (Clear) 08/04/20 Unknown Urine pH 6.5 (4.5-7.5) 08/04/20 Unknown Ur Specific [place] 1.023 (1.000-1.030) 08/04/20 Unknown Urine Protein 2+ (Negative) H 08/04/20 Unknown Urine Glucose (UA) Negative (Negative) 08/04/20 Unknown Urine Ketones Trace (Negative) H 08/04/20 Unknown Urine Blood Negative (Negative) 08/04/20 Unknown Urine Nitrite Negative (Negative) 08/04/20 Unknown Urine Bilirubin Negative (Negative) 08/04/20 Unknown Urine Urobilinogen Negative (Negative) 08/04/20 Unknown Ur Leukocyte Esterase Negative (Negative) 08/04/20 Unknown Urine WBC (Auto) 1-5 /hpf (0-5) 08/04/20 Unknown Urine RBC (Auto) 0-4 /hpf (0-4) 08/04/20 Unknown U Hyaline Cast (Auto) 5-10 /lpf (0-5) H 08/04/20 Unknown U Epithel Cells (Auto) >30 /lpf (0-5) H 08/04/20 Unknown Urine Bacteria (Auto) Negative (Negative) 08/04/20 Unknown Ur Renal Epithelial Cell Not Reportable 08/04/20 Unknown [facility] 08[facility]04/[facility] 18:02 SARS-CoV-2, RNA, NAAT NEGATIVE (NEGATIVE) 08/04/20 18:02 Blood Type AB Positive 08/04/20 18:29 Antibody Screen NEGATIVE 08/04/20 18:29 (1) Intertrochanteric fracture of right hip Encounter type: initial encounter Fracture type: closed Fracture alignment: displaced Qualified Code(s): S72.141A - Displaced intertrochanteric fracture of right femur, initial encounter for closed fracture
[2020-08-06] MEDS ORDERED: ACETAMINOPHEN 500 MG TAB PO ONE (10:00)
[2020-08-06] MEDS ORDERED: SODIUM CHLORIDE 0.9% 1000ML 500 ML IV ONE (11:46)
[2020-08-06] MEDS ORDERED: HYDROmorphone INJ 0.5 MG/0.5 ML SYR IV PRN (11:48)
[2020-08-06] MEDS: LIDOCAINE 5% 1 PATCH TD SCH (15:38)
[2020-08-06] MEDS: ALBUMIN 25% 12.5 GM/50 ML VIAL IV SCH ×2 (16:03→18:56)
[2020-08-06 17:29] LABS: Hematocrit (blood only) 25.6 % (37-47); Hemoglobin 8.4 g/dL (12.0-16.0); Mean Corpuscular Hemoglobin 30.1 pg (25-34); Mean Corpuscular Hgb Conc 32.8 g/dL (32-36); Mean Corpuscular Volume 91.8 fL (80-100); RDW Coefficient of Variation 15.4 % (11.5-14.5); RDW Standard Deviation 52.3 fL (36.4-46.3); Red Blood Count 2.79 M/uL (4.2-5.4); White Blood Count 6.22 K/uL (4.8-10.8)
[2020-08-06 18:12] LABS: Mean Platelet Volume 11.5 fL (7.4-10.4); Platelet Count 83 K/uL (130-400); Platelet Estimate Decreased (Normal)
[2020-08-06] MEDS: MELATONIN 3 MG TAB PO SCH (20:46)
[2020-08-06] MEDS: tiZANidine HCL 4 MG TABLET PO SCH (20:50)
[2020-08-06] MEDS: ROSUVASTATIN CALCIUM 20 MG TAB PO SCH (20:50)
[2020-08-06] MEDS: ENOXAPARIN INJ 40 MG/0.4 ML SYR SQ SCH (20:51)
[2020-08-06] MEDS: CETIRIZINE HCL 10 MG TABLET PO SCH (20:51)
[2020-08-06] MEDS: DOCUSATE SODIUM/SENNA 50/8.6MG TAB PO SCH (20:52)
[2020-08-07] MEDS ORDERED: HYDROmorphone INJ 0.5 MG/0.5 ML SYR IV PRN ×2 (04:58→10:47)
[2020-08-07] MEDS: LEVOTHYROXINE SODIUM 25 MCG TABLET PO SCH (05:50)
[2020-08-07 07:03] LABS: Hematocrit (blood only) 23.9 % (37-47); Hemoglobin 7.7 g/dL (12.0-16.0); Mean Corpuscular Hemoglobin 29.1 pg (25-34); Mean Corpuscular Hgb Conc 32.2 g/dL (32-36); Mean Corpuscular Volume 90.2 fL (80-100); RDW Coefficient of Variation 14.9 % (11.5-14.5); RDW Standard Deviation 49.4 fL (36.4-46.3); Red Blood Count 2.65 M/uL (4.2-5.4); White Blood Count 5.69 K/uL (4.8-10.8)
[2020-08-07 07:07] LABS: Mean Platelet Volume 11.5 fL (7.4-10.4); Platelet Count 71 K/uL (130-400)
[2020-08-07 07:25] LABS: Basophils # (auto) 0.01 K/uL (0-0.2); Basophils % (auto) 0.2 %; Eosinophils # (auto) 0.01 K/uL (0-0.5); Eosinophils % (auto) 0.2 %; Immature Granulocytes # (auto) 0.02 K/uL (0.00-0.02); Immature Granulocytes % (auto) 0.4 %; Lymphocytes # (auto) 0.81 K/uL (1.2-3.4); Lymphocytes % (auto) 14.2 %; Monocytes # (auto) 0.57 K/uL (0.11-0.59); Neutrophils # (auto) 4.27 K/uL (1.4-6.5)
[2020-08-07 07:35] LABS: BUN Creatinine Ratio 18.1 (10-20); Calcium 8.4 mg/dl (8.5-10.1); Creatinine Clr Calc Pharmacy 33.2 ml/min; Est GFR (African American) 49.9; Potassium 4.2 mmol/L (3.5-5.1)
[2020-08-07] MEDS: ISOSORBIDE MONO EXTENDED REL 60 MG TABCR PO SCH (08:28)
[2020-08-07] MEDS: CYANOCOBALAMIN 500 MCG TABLET (VITAMIN B-12) PO SCH (08:28)
[2020-08-07] MEDS: CHOLECALCIFEROL 1,000 UNITS 25 MCG TAB PO SCH (08:28)
[2020-08-07] MEDS: ASPIRIN 81 MG ECTAB PO SCH (08:28)
[2020-08-07] MEDS: ESCITALOPRAM OXALATE 20 MG TAB PO SCH (08:28)
[2020-08-07] MEDS: METOPROLOL TARTRATE 100 MG TAB PO SCH ×2 (08:29→21:21)
[2020-08-07] MEDS: PANTOprazole 40 MG TAB PO SCH (08:29)
[2020-08-07] MEDS: ISOSORBIDE MONO EXTENDED REL 30 MG TABCR PO SCH (08:29)
[2020-08-07] MEDS: FLUTICASONE/VILANTEROL 100/25MCG 14 PUFFS/INHALER INH SCH (08:29)
[2020-08-07] MEDS: busPIRone 5 MG TAB PO SCH ×2 (08:29→21:21)
[2020-08-07] MEDS: UMECLIDINIUM BROMIDE 62.5MCG/BLISTER 7 PUFFS/INHALER INH SCH (08:30)
[2020-08-07] MEDS: FLUTICASONE PROPIONATE NA SPR 16 GM BTL SCH (08:30)
[2020-08-07] MEDS: LIDOCAINE 5% 1 PATCH TD SCH (08:31)
[2020-08-07] MEDS: PREGABALIN 100 MG CAP PO SCH ×2 (08:34→21:20)
--- NOTE | 2020-08-07 08:46 | Hospitalist Progress Note ---
Date of Service August 07, 2020 Assessment & Plan (1) Intertrochanteric fracture of right hip: Acute blood loss and hemodilution related anemia This is an 84-year-old female presents with mechanical fall and right hip fracture. 1. Mechanical fall, right hip fracture. The patient is hemodynamically stable. Labs w/o major abnormalities on admission. Chest x-ray unremarkable. EKG, no acute findings. The patient should be at acceptable risk to proceed with surgery. Because of her age and other comorbid conditions should be moderate risk for any procedures. Orthopedics consulted. Now s/p Right TFN (08/05/2020) w/ Dr. Valadez Hgb 7.7 (Acute blood loss and hemodilution related anemia) Stopped IVF, cont. to closly monitor H&H Dressing blood tinged Plt down to 71K on ASA and enoxaparin DVT ppx per ortho (may consider to switch to ASA 81 mg BID) PT per ortho 2. Hx of Chronic respiratory failure on 2 L oxygen all the time, history of COPD, history of asthma, history of pulmonary hypertension. Continue home inhalers and nebs p.r.n. 3. History of CAD status post stent. Continue her statin, aspirin and beta sheridan, currently stable. 4. History of hypertension. The patient is on Lopressor, Imdur. We will monitor the blood pressure. 5. History of hyperlipidemia, on statin. 6. History of hypothyroidism, on Synthroid. 7. History of anxiety and depression. Continue her buspirone, Lexapro. 8. History of CKD stage III. Baseline creatinine around 1.2 to 1.4, current creatinine of 1.4. Getting fluids on admission, will stop now. We will follow the labs. 9. Chronic diastolic CHF. The patient is on Lasix 20 mg p.o. 3 times a week. Getting fluids on admission, will stop now. We will monitor for any volume overload. 10. Hx of Status post TAVR, 11. Peripheral vascular disease, on aspirin and statin. 12. GERD, on Protonix. DVT prophylaxis, Post-surgery anticoagulation as per orthopedics. Currently pt is on ASA and enoxaparin 40 daily (decreased to 30 daily) Admission and Anticipated Discharge Date Admission Date: August 04, 2020 Subjective Pt seen in follow up of fall and R hip fx, anemia, chronic resp. failure Now POD 2 s/p Right TFN Having some pain in right hip and thigh this AM. No fever, chills, chest pain, shortness of breath, and. pain, n/v. Hgb down to 7.7, Plt down to 71 Review of Systems Review of Systems: All systems reviewed & are unremarkable except as noted in HPI & below Constitutional: no fever and no chills Respiratory: no cough and no dyspnea Cardiovascular: no chest pain and no palpitations Gastrointestinal: no abdominal pain, no nausea and no vomiting Physical Exam Physical Exam: GENERAL: elderly female laying in bed, not in acute distress, on suppl. O2 HEENT: NC/AT, EOMI, PERRL. No pallor, no icterus NECK: No neck masses palpable. CARDIOVASCULAR: S1, S2, regular rate and rhythm, no murmur, no gallop. RESPIRATORY SYSTEM: Normal AP diameter. No accessory muscle use. No wheezing, no crackles. Using suppl. O2 ABDOMEN: Soft, bowel sounds present, nontender. No distention. NEURO: Alert and awake. Speech clear. No facial droop. Moves extremities. EXTREMITIES: Right thigh edema, dressings over surg. site blood tinged. Tender to palp. Results & Data Results & Data ([facility]) Vital Signs (Past 12 Hours) Vital Signs Temp Pulse Pulse Resp BP Pulse Ox Pulse Ox 08/07/20 07:16 37.4 C 63 20 118/69 93 08/06/20 23:00 96 08/06/20 22:53 36.9 C 60 22 110/56 L 96 08/06/20 21:00 97 08/06/20 20:47 64 22 125/72 97 Laboratory Results 08/07/20 08/07/20 08/06/20 Range/Units 06:25 06:25 17:11 WBC 5.69 6.22 (4.8-10.8) K/uL RBC 2.65 L 2.79 L (4.2-5.4) M/uL Hgb 7.7 L 8.4 L (12.0-16.0) g/dL Hct 23.9 L 25.6 L (37-47) % MCV 90.2 91.8 (80-100) fL MCH 29.1 30.1 (25-34) pg MCHC 32.2 32.8 (32-36) g/dL RDW Std Deviation 49.4 H 52.3 H (36.4-46.3) fL RDW Coeff of Beatriz 14.9 H 15.4 H (11.5-14.5) % Plt Count 71 L 83 L (130-400) K/uL MPV 11.5 H 11.5 H (7.4-10.4) fL Immature Gran % (Auto) 0.4 % Neut % (Auto) 75.0 % Lymph % (Auto) 14.2 % Wythe % (Auto) 10.0 % Eos % (Auto) 0.2 % Baso % (Auto) 0.2 % Neut # (Auto) 4.27 (1.4-6.5) K/uL Lymph # (Auto) 0.81 L (1.2-3.4) K/uL Wythe # (Auto) 0.57 (0.11-0.59) K/uL Eos # (Auto) 0.01 (0-0.5) K/uL Baso # (Auto) 0.01 (0-0.2) K/uL Immature Gran # (Auto) 0.02 (0.00-0.02) K/uL Platelet Estimate Decreased L (Normal) Sodium 138 (136-145) mmol/L Potassium 4.2 (3.5-5.1) mmol/L Chloride 107 (98-107) mmol/L Carbon Dioxide 25 (21-32) mmol/L Anion Gap 6.0 (3-11) BUN 21 H (7-18) mg/dl Creatinine 1.15 (0.6-1.2) mg/dl Est Cr Clr Drug Dosing 33.2 ml/min Est GFR ( Amer) 49.9 Est GFR (Non-Af Amer) 43.0 BUN/Creatinine Ratio 18.1 (10-20) Glucose 100 H (70-99) mg/dl Calcium 8.4 L (8.5-10.1) mg/dl Medications Administered Current Inpatient Medications Acetaminophen (Acetaminophen 325 Mg Tab) 650 mg PO Q4H PRN PRN Reason: Pain Stop: 09/05/20 11:46 Albuterol (Albuterol Hfa 8 Gm Inhaler) 2 puffs INH Q4H PRN PRN Reason: Shortness Of Breath Or Wheezing Stop: 09/03/20 20:41 Albuterol (Albuterol 0.083% Nebu Soln 3 Ml Vial) 2.5 mg INH Q6H PRN PRN Reason: Shortness Of Breath,Wheezing Or Cough Stop: 09/03/20 20:41 Last Admin: 08/05/20 07:10 Dose: 2.5 mg Documented by: Aspirin (Aspirin 81 Mg Ectab) 81 mg PO DAILY MAXX Stop: 09/04/20 08:59 Last Admin: 08/07/20 08:28 Dose: 81 mg Documented by: Bisacodyl (Bisacodyl 10 Mg Supp) 10 mg [place] DAILY PRN PRN Reason: Constipation Stop: 09/03/20 20:41 Buspirone HCl (Buspirone 5 Mg Tab) 5 mg PO AMHS MAXX Stop: 09/03/20 20:59 Last Admin: 08/07/20 08:29 Dose: 5 mg Documented by: Cetirizine HCl (Cetirizine Hcl 10 Mg Tablet) 10 mg PO HS MAXX Stop: 09/03/20 20:59 Last Admin: 08/06/20 20:51 Dose: 10 mg Documented by: Cyanocobalamin (Cyanocobalamin 500 Mcg Tablet (Vitamin B-12)) 500 mcg PO DAILY MAXX Stop: 09/04/20 08:59 Last Admin: 08/07/20 08:28 Dose: 500 mcg Documented by: Enoxaparin Sodium (Enoxaparin Inj 40 Mg/0.4 Ml Syr) 40 mg SQ Q24H MAXX Stop: 09/04/20 15:12 Last Admin: 08/06/20 20:51 Dose: 40 mg Documented by: Escitalopram Oxalate (Escitalopram Oxalate 20 Mg Tab) 20 mg PO DAILY MAXX Stop: 09/04/20 08:59 Last Admin: 08/07/20 08:28 Dose: 20 mg Documented by: Fluticasone Propionate (Fluticasone Propionate Na Spr 16 Gm Btl) 2 sprays NA DAILY MAXX Stop: 09/04/20 08:59 Last Admin: 08/07/20 08:30 Dose: 2 sprays Documented by: Fluticasone/Vilanterol (Fluticasone/Vilanterol 100/25mcg 14 Puffs/Inhaler) 1 puffs INH DAILY MAXX Stop: 09/04/20 08:59 Last Admin: 08/07/20 08:29 Dose: 1 puffs Documented by: Furosemide (Furosemide 20 Mg Tab) 20 mg PO MoWeFr@0900 [facility] Stop: 09/05/20 08:59 Last Admin: 08/06/20 08:06 Dose: 20 mg Documented by: Hydromorphone HCl (Hydromorphone Inj 0.5 Mg/0.5 Ml Syr) 0.5 mg IV Q3H PRN PRN Reason: Pain Stop: 08/18/20 20:41 Last Admin: 08/07/20 05:56 Dose: 0.5 mg Documented by: Isosorbide Mononitrate (Isosorbide Wythe Extended Rel 30 Mg Tabcr) 30 mg PO DAILY [facility] Stop: 09/04/20 08:59 Last Admin: 08/07/20 08:29 Dose: 30 mg Documented by: Isosorbide Mononitrate (Isosorbide Wythe Extended Rel 60 Mg Tabcr) 60 mg PO DAILY MAXX Stop: 09/04/20 08:59 Last Admin: 08/07/20 08:28 Dose: 60 mg Documented by: Levothyroxine Sodium (Levothyroxine Sodium 25 Mcg Tablet) 25 mcg PO DAILYBB [facility] Stop: 09/04/20 06:29 Last Admin: 08/07/20 05:50 Dose: 25 mcg Documented by: Lidocaine (Lidocaine 5% 1 Patch) 1 patch TD QAM [facility] Stop: 09/05/20 11:59 Last Admin: 08/07/20 08:31 Dose: 1 patch Documented by: Magnesium Hydroxide (Magnesium Hydroxide Susp 30 Ml Udc) 30 ml PO DAILY PRN PRN Reason: Constipation Stop: 09/03/20 20:41 Melatonin (Melatonin 3 Mg Tab) 9 mg PO HS [facility] Stop: 09/03/20 20:59 Last Admin: 08/06/20 20:46 Dose: 9 mg Documented by: Metoprolol Tartrate (Metoprolol Tartrate 100 Mg Tab) 100 mg PO BID [facility] Stop: 09/03/20 20:59 Last Admin: 08/07/20 08:29 Dose: 100 mg Documented by: Miscellaneous (Remove Lidoderm Patch) 1 ea N/A DAILY@2100 [facility] Stop: 09/05/20 20:59 Last Admin: 08/06/20 20:52 Dose: 1 ea Documented by: Naloxone HCl (Naloxone Hcl 0.4 Mg/1 Ml Vial/Carp) 0.1 mg IV UD PRN PRN Reason: Opiate Overdose Stop: 09/03/20 20:41 Naloxone HCl (Naloxone Hcl 0.4 Mg/1 Ml Vial/Carp) 0.1 mg IV UD PRN PRN Reason: Opioid Overdose Stop: 09/04/20 15:12 Nitroglycerin (Nitroglycerin Sl 0.4 Mg/Tab Tab) 0.4 mg SL UD PRN PRN Reason: Chest Pain Stop: 09/03/20 20:41 Ondansetron HCl (Ondansetron Inj 2 Mg/Ml 2 Ml Vial) 4 mg IV Q6H PRN PRN Reason: Nausea Stop: 09/03/20 20:41 Pantoprazole Sodium (Pantoprazole 40 Mg Tab) [facility] [place] Stop: 09/04/20 08:59 Last Admin: 08/07/20 08:29 Dose: 40 mg Documented by: Polyethylene Glycol (Polyethylene (Miralax) 17 Gm Pack) 17 gm PO DAILY PRN PRN Reason: Constipation Stop: 09/03/20 20:41 Pregabalin (Pregabalin 100 Mg Cap) 100 mg PO [facility] Stop: 09/03/20 20:59 Last Admin: 08/07/20 08:34 Dose: 100 mg Documented by: Rosuvastatin Calcium (Rosuvastatin Calcium 20 Mg Tab) 20 mg PO [facility] Stop: 09/03/20 20:59 Last Admin: 08/06/20 20:50 Dose: 20 mg Documented by: Senna/Docusate Sodium (Docusate Sodium/Senna 50/8.6mg Tab) 2 tab PO [facility] Stop: 09/03/20 20:59 Last Admin: 08/06/20 20:52 Dose: 2 tab Documented by: Tizanidine HCl (Tizanidine Hcl 4 Mg Tablet) 2 mg PO [facility] Stop: 09/03/20 20:59 Last Admin: 08/06/20 20:50 Dose: 2 mg Documented by: Umeclidinium Carbon (Umeclidinium Carbon 62.5mcg/Blister 7 Puffs/Inhaler) 1 puffs INH DAILY MAXX Stop: 09/04/20 08:59 Last Admin: 08/07/20 08:30 Dose: 1 puffs Documented by: Vitamin D (Cholecalciferol 1,000 Units 25 Mcg Tab) 1,000 units PO DAILY [facility] Stop: 09/04/20 08:59 Last Admin: 08/07/20 08:28 Dose: 1,000 units Documented by: (1) Intertrochanteric fracture of right hip Encounter type: initial encounter Fracture type: closed Fracture alignment: displaced Qualified Code(s): S72.141A - Displaced intertrochanteric fracture of right femur, initial encounter for closed fracture
--- NOTE | 2020-08-07 11:29 | Orthopedic Progress Note ---
Date of Service August 07, 2020 Assessment & Plan (1) Intertrochanteric fracture of right hip: POD 2 s/p Right TFN PT/OT protocol DVT prophylaxis with Enoxaparin, SCD's, MIRNA's Pain management as written H/H 7.7/23.9 today, will defer to primary team. DC planning - as per [facility] Admission and Anticipated Discharge Date Admission Date: August 04, 2020 Subjective POD #2 s/p Right hip cephalomedullary nailing for intertrochanteric fracture Review of Systems Constitutional: no fever and no chills Cardiovascular: no chest pain Gastrointestinal: no nausea and no vomiting Physical Exam Physical Exam: Vital Signs Temp 37.4 C 08/07/20 07:16 Pulse 63 08/07/20 07:16 Resp 20 08/07/20 07:16 BP 118/69 08/07/20 07:16 Pulse Ox 93 08/07/20 07:16 Intake & Output 08/06/20 08/07/20 08/07/20 18:59 06:59 18:59 Intake Total 1970 / 2130 160 / 2130 Output Total 200 / 725 525 / 725 Balance 1770 / 1405 -365 / 1405 Intake: IV 1550 / 1550 ALBUMIN 25% 12 .5 gm In 50 ml @ 50 / 50 50 mls/hr IV Q 1H MAXX Rx#: [id number] Nss 1000ML 500 ml @ 999 mls/hr 1500 / 1500 IV .Q31M ONE R x#:[id number] Oral 420 / 580 160 / 580 Output: Urine Amount (Ca theter) 200 / 725 525 / 725 Wood/Indwelli ng 200 / 725 525 / 725 Constitutional: WD/WN, vitals as above Musculoskeletal: Right hip: dressing clean dry and intact. calf SNT. DP palpable, able to plantar and dorsiflex at the ankle Results & Data ([facility]) Vital Signs (Past 12 Hours) Vital Signs Temp Pulse Resp BP Pulse Ox 08/07/20 07:16 37.4 C 63 20 118/69 93 Laboratory Results Laboratory Results WBC 5.69 K/uL (4.8-10.8) 08/07/20 06:25 RBC 2.65 M/uL (4.2-5.4) L 08/07/20 06:25 Hgb 7.7 g/dL (12.0-16.0) L 08/07/20 06:25 Hct 23.9 % (37-47) L 08/07/20 06:25 MCV 90.2 fL (80-100) 08/07/20 06:25 MCH 29.1 pg (25-34) 08/07/20 06:25 MCHC 32.2 g/dL (32-36) 08/07/20 06:25 RDW Std Deviation 49.4 fL (36.4-46.3) H 08/07/20 06:25 RDW Coeff of Beatriz 14.9 % (11.5-14.5) H 08/07/20 06:25 Plt Count 71 K/uL (130-400) L 08/07/20 06:25 MPV 11.5 fL (7.4-10.4) H 08/07/20 06:25 Immature Gran % (Auto) 0.4 % 08/07/20 06:25 Neut % (Auto) 75.0 % 08/07/20 06:25 Lymph % (Auto) 14.2 % 08/07/20 06:25 Addison % (Auto) 10.0 % 08/07/20 06:25 Eos % (Auto) 0.2 % 08/07/20 06:25 Baso % (Auto) 0.2 % 08/07/20 06:25 Neut # (Auto) 4.27 K/uL (1.4-6.5) 08/07/20 06:25 Lymph # (Auto) 0.81 K/uL (1.2-3.4) L 08/07/20 06:25 Addison # (Auto) 0.57 K/uL (0.11-0.59) 08/07/20 06:25 Eos # (Auto) 0.01 K/uL (0-0.5) 08/07/20 06:25 Baso # (Auto) 0.01 K/uL (0-0.2) 08/07/20 06:25 Immature Gran # (Auto) 0.02 K/uL (0.00-0.02) 08/07/20 06:25 Neutrophils % (Manual) 88.7 % 08/06/20 05:37 Lymphocytes % (Manual) 5.2 % 08/06/20 05:37 Monocytes % (Manual) 6.1 % 08/06/20 05:37 Neutrophils # (Manual) 4.36 K/uL (1.4-6.5) 08/06/20 05:37 Total Absolute Neuts 4.36 K/uL (1.4-6.5) 08/06/20 05:37 Lymphocytes # (Manual) 0.26 K/uL (1.2-3.4) L 08/06/20 05:37 Total Abs Lymphocytes 0.26 K/uL (1.2-3.4) L 08/06/20 05:37 Monocytes # (Manual) 0.30 K/uL (0.11-0.59) 08/06/20 05:37 Platelet Estimate Decreased (Normal) L 08/06/20 17:11 Basophilic Stippling 1+ 08/06/20 05:37 Anisocytosis Present 08/06/20 05:37 Ovalocytes 1+ 08/06/20 05:37 PT 10.8 Seconds (9.0-12.0) 08/04/20 17:40 INR 1.1 (0.9-1.1) 08/04/20 17:40 APTT 23.6 Seconds (21.0-31.0) 08/04/20 17:40 PTT Ratio 0.9 08/04/20 17:40 Sodium 138 mmol/L (136-145) 08/07/20 06:25 Potassium 4.2 mmol/L (3.5-5.1) 08/07/20 06:25 Chloride 107 mmol/L (98-107) 08/07/20 06:25 Carbon Dioxide 25 mmol/L (21-32) 08/07/20 06:25 Anion Gap 6.0 (3-11) 08/07/20 06:25 BUN 21 mg/dl (7-18) H 08/07/20 06:25 Creatinine 1.15 mg/dl (0.6-1.2) 08/07/20 06:25 Est Cr Clr Drug Dosing 33.2 ml/min 08/07/20 06:25 Est GFR ( Amer) 49.9 08/07/20 06:25 Est GFR (Non-Af Amer) 43.0 08/07/20 06:25 BUN/Creatinine Ratio 18.1 (10-20) 08/07/20 06:25 Glucose 100 mg/dl (70-99) H 08/07/20 06:25 Calcium 8.4 mg/dl (8.5-10.1) L 08/07/20 06:25 Urine Color Yellow 08/04/20 Unknown Urine Appearance Clear (Clear) 08/04/20 Unknown Urine pH 6.5 (4.5-7.5) 08/04/20 Unknown Ur Specific Wilson 1.023 (1.000-1.030) 08/04/20 Unknown Urine Protein 2+ (Negative) H 08/04/20 Unknown Urine Glucose (UA) Negative (Negative) 08/04/20 Unknown Urine Ketones Trace (Negative) H 08/04/20 Unknown Urine Blood Negative (Negative) 08/04/20 Unknown Urine Nitrite Negative (Negative) 08/04/20 Unknown Urine Bilirubin Negative (Negative) 08/04/20 Unknown Urine Urobilinogen Negative (Negative) 08/04/20 Unknown Ur Leukocyte Esterase Negative (Negative) 08/04/20 Unknown Urine WBC (Auto) 1-5 /hpf (0-5) 08/04/20 Unknown Urine RBC (Auto) 0-4 /hpf (0-4) 08/04/20 Unknown U Hyaline Cast (Auto) 5-10 /lpf (0-5) H 08/04/20 Unknown U Epithel Cells (Auto) >30 /lpf (0-5) H 08/04/20 Unknown Urine Bacteria (Auto) Negative (Negative) 08/04/20 Unknown Ur Renal Epithelial Cell Not Reportable 08/04/20 Unknown COVID-19 Eval Order Covid19 [facility]Now [facility] 08/04/20 18:02 SARS-CoV-2, RNA, NAAT NEGATIVE (NEGATIVE) 08/04/20 18:02 Blood Type AB Positive 08/04/20 18:29 Antibody Screen NEGATIVE 08/04/20 18:29 (1) Intertrochanteric fracture of right hip Encounter type: initial encounter Fracture type: closed Fracture alignment: displaced Qualified Code(s): S72.141A - Displaced intertrochanteric fracture of right femur, initial encounter for closed fracture
[2020-08-07] MEDS: ACETAMINOPHEN 325 MG TAB PO PRN (11:54)
[2020-08-07] MEDS: POLYETHYLENE (MIRALAX) 17 GM PACK PO SCH (11:59)
[2020-08-07] MEDS: guaiFENesin 600 MG TABCR PO SCH ×2 (13:22→21:20)
[2020-08-07] MEDS: DOCUSATE SODIUM/SENNA 50/8.6MG TAB PO SCH (21:20)
[2020-08-07] MEDS: CETIRIZINE HCL 10 MG TABLET PO SCH (21:20)
[2020-08-07] MEDS: tiZANidine HCL 4 MG TABLET PO SCH (21:21)
[2020-08-07] MEDS: MELATONIN 3 MG TAB PO SCH (21:21)
[2020-08-07] MEDS: ROSUVASTATIN CALCIUM 20 MG TAB PO SCH (21:22)
[2020-08-07] MEDS: ENOXAPARIN INJ 30 MG/0.3 ML SYR SQ SCH (21:22)
[2020-08-07] MEDS: oxyCODONE HCL IR 5 MG TAB (IMMEDIATE RELEASE) PO PRN (22:08)
[2020-08-08] MEDS: LEVOTHYROXINE SODIUM 25 MCG TABLET PO SCH (06:20)
[2020-08-08 06:50] LABS: BUN Creatinine Ratio 17.3 (10-20); Calcium 8.4 mg/dl (8.5-10.1); Creatinine Clr Calc Pharmacy 34.7 ml/min; Est GFR (African American) 52.6; Est GFR (Non-African American) 45.4; Potassium 4.1 mmol/L (3.5-5.1)
[2020-08-08 06:53] LABS: Basophils # (auto) 0.01 K/uL (0-0.2); Basophils % (auto) 0.2 %; Eosinophils # (auto) 0.03 K/uL (0-0.5); Eosinophils % (auto) 0.7 %; Hematocrit (blood only) 22.1 % (37-47); Hemoglobin 7.5 g/dL (12.0-16.0); Immature Granulocytes # (auto) 0.01 K/uL (0.00-0.02); Immature Granulocytes % (auto) 0.2 %; Lymphocytes # (auto) 0.68 K/uL (1.2-3.4); Lymphocytes % (auto) 15.1 %; Mean Corpuscular Hemoglobin 30.1 pg (25-34); Mean Corpuscular Hgb Conc 33.9 g/dL (32-36); Mean Corpuscular Volume 88.8 fL (80-100); Monocytes # (auto) 0.51 K/uL (0.11-0.59); Monocytes % (auto) 11.4 %; Neutrophils # (auto) 3.25 K/uL (1.4-6.5); Neutrophils % (auto) 72.4 %; Ovalocytes 1+; Platelet Count 77 K/uL (130-400); RDW Coefficient of Variation 14.8 % (11.5-14.5); RDW Standard Deviation 48.3 fL (36.4-46.3); Red Blood Count 2.49 M/uL (4.2-5.4); White Blood Count 4.49 K/uL (4.8-10.8)
[2020-08-08] MEDS: oxyCODONE HCL IR 5 MG TAB (IMMEDIATE RELEASE) PO PRN ×3 (09:48→23:58)
[2020-08-08] MEDS: guaiFENesin 600 MG TABCR PO SCH ×2 (09:50→20:30)
[2020-08-08] MEDS: METOPROLOL TARTRATE 100 MG TAB PO SCH ×2 (09:50→20:38)
[2020-08-08] MEDS: ESCITALOPRAM OXALATE 20 MG TAB PO SCH (09:50)
[2020-08-08] MEDS: busPIRone 5 MG TAB PO SCH ×2 (09:50→20:32)
[2020-08-08] MEDS: UMECLIDINIUM BROMIDE 62.5MCG/BLISTER 7 PUFFS/INHALER INH SCH (09:51)
[2020-08-08] MEDS: CYANOCOBALAMIN 500 MCG TABLET (VITAMIN B-12) PO SCH (09:51)
[2020-08-08] MEDS: PANTOprazole 40 MG TAB PO SCH (09:51)
[2020-08-08] MEDS: CHOLECALCIFEROL 1,000 UNITS 25 MCG TAB PO SCH (09:51)
[2020-08-08] MEDS: ISOSORBIDE MONO EXTENDED REL 60 MG TABCR PO SCH (09:52)
[2020-08-08] MEDS: FLUTICASONE/VILANTEROL 100/25MCG 14 PUFFS/INHALER INH SCH (09:52)
[2020-08-08] MEDS: FLUTICASONE PROPIONATE NA SPR 16 GM BTL SCH (09:52)
[2020-08-08] MEDS: ISOSORBIDE MONO EXTENDED REL 30 MG TABCR PO SCH (09:53)
[2020-08-08] MEDS: ASPIRIN 81 MG ECTAB PO SCH (09:53)
[2020-08-08] MEDS: LIDOCAINE 5% 1 PATCH TD SCH (09:53)
[2020-08-08] MEDS: FUROSEMIDE 20 MG TAB PO SCH (09:54)
[2020-08-08] MEDS: POLYETHYLENE (MIRALAX) 17 GM PACK PO SCH (09:54)
[2020-08-08] MEDS: PREGABALIN 100 MG CAP PO SCH ×2 (09:56→20:42)
[2020-08-08] MEDS ORDERED: SODIUM CHLORIDE 0.9% 250 ML IV PRN (11:42)
[2020-08-08] MEDS: ACETAMINOPHEN 325 MG TAB PO PRN ×2 (13:35→17:54)
--- NOTE | 2020-08-08 16:45 | Hospitalist Progress Note ---
Date of Service August 08, 2020 Assessment & Plan (1) Intertrochanteric fracture of right hip: Present on admission with mechanical fall and right hip fracture. CT of hip showed acute, comminuted and slightly displaced intertrochanteric fracture of the right femur with basicervical fracture extension. S/P right TFN perfomed by ortho Dr. Valadez on 08/05/20 Continue pain control Continue dressing changed Incentive spirometry Hgb 7.5 today Continue PT/OT Fall precaution Acute blood loss anemia Mostly related to postop Hgb 7.5 today type and cross and will transfuse 1 unit prbc Continue monitor CBC Currently on Lovenox subq and asa for DVT px Hx of Chronic respiratory failure on 2 L oxygen all the time, history of COPD, history of asthma, history of pulmonary hypertension. Continue home inhalers and nebs p.r.n. History of CAD status post stent. Continue her statin, aspirin and beta sheridan, currently stable. History of hypertension. Continue Lopressor, Imdur. We will monitor the blood pressure. History of hyperlipidemia On statin. History of hypothyroidism On Synthroid. History of anxiety and depression. Continue her buspirone, Lexapro. History of CKD stage III. Baseline creatinine btw 1.2 to 1.4 Current creatinine of 1.1. stable Chronic diastolic CHF. On Lasix 20 mg p.o. 3 times a week. We will monitor for any volume overload. Hx of Status post TAVR Peripheral vascular disease, on aspirin and statin. GERD, on Protonix. DVT prophylaxis, Post-surgery anticoagulation as per orthopedics. Currently pt is on ASA and enoxaparin 30 daily Disposition Possible discharge tomorrow Admission and Anticipated Discharge Date Admission Date: August 04, 2020 Subjective Pt was seen and examined for follow up of fall and R hip fx, anemia, chronic resp. failure Lying in bed with no distress Pt said that she is having some pain Denies any chest pain, palpitation, dizziness and SOB Physical Exam Physical Exam: General- No acute distress Head- atraumatic Eyes- PERRL, EOMI, ENT- oropharynx clear Neck- supple, no JVD Lungs- clear to auscultation Heart- regular rhythm; no murmur Abdomen- normal bowel sounds, soft, nontender Extremities- no calf tenderness Neuro- alert, oriented x 3; PERRL, EOMI; no facial palsy; no dysarthria Skin- warm & dry Results & Data Results & Data ([facility]) Vital Signs (Past 12 Hours) Vital Signs Temp Pulse Pulse Resp BP BP Pulse Ox 08/08/20 16:28 36.6 C 61 18 138/66 99 08/08/20 15:28 36.8 C 68 18 156/66 H 91 08/08/20 14:58 36.8 C 61 18 139/61 95 08/08/20 14:43 36.8 C 61 18 139/61 95 08/08/20 14:27 36.9 C 61 16 134/56 L 93 08/08/20 06:56 36.8 C 60 16 122/66 91 (1) Intertrochanteric fracture of right hip Encounter type: initial encounter Fracture alignment: displaced Fracture type: closed Qualified Code(s): S72.141A - Displaced intertrochanteric fracture of right femur, initial encounter for closed fracture
[2020-08-08] MEDS: MELATONIN 3 MG TAB PO SCH (20:30)
[2020-08-08] MEDS: tiZANidine HCL 4 MG TABLET PO SCH (20:31)
[2020-08-08] MEDS: DOCUSATE SODIUM/SENNA 50/8.6MG TAB PO SCH (20:32)
[2020-08-08] MEDS: ROSUVASTATIN CALCIUM 20 MG TAB PO SCH (20:33)
[2020-08-08] MEDS: CETIRIZINE HCL 10 MG TABLET PO SCH (20:33)
[2020-08-08] MEDS: ENOXAPARIN INJ 30 MG/0.3 ML SYR SQ SCH (20:34)
[2020-08-09] MEDS: LEVOTHYROXINE SODIUM 25 MCG TABLET PO SCH (05:32)
[2020-08-09 06:26] LABS: Hematocrit (blood only) 25.5 % (37-47); Hemoglobin 8.7 g/dL (12.0-16.0); Mean Corpuscular Hemoglobin 29.9 pg (25-34); Mean Corpuscular Hgb Conc 34.1 g/dL (32-36); Mean Corpuscular Volume 87.6 fL (80-100); Mean Platelet Volume 12.5 fL (7.4-10.4); Platelet Count 89 K/uL (130-400); Red Blood Count 2.91 M/uL (4.2-5.4); White Blood Count 4.35 K/uL (4.8-10.8)
[2020-08-09] MEDS ORDERED: FUROSEMIDE 20 MG TAB PO ONE (08:13)
[2020-08-09] MEDS: oxyCODONE HCL IR 5 MG TAB (IMMEDIATE RELEASE) PO PRN (08:33)
[2020-08-09] MEDS: UMECLIDINIUM BROMIDE 62.5MCG/BLISTER 7 PUFFS/INHALER INH SCH (08:49)
[2020-08-09] MEDS: METOPROLOL TARTRATE 100 MG TAB PO SCH (08:51)
[2020-08-09] MEDS: CHOLECALCIFEROL 1,000 UNITS 25 MCG TAB PO SCH (08:51)
[2020-08-09] MEDS: ASPIRIN 81 MG ECTAB PO SCH (08:51)
[2020-08-09] MEDS: CYANOCOBALAMIN 500 MCG TABLET (VITAMIN B-12) PO SCH (08:51)
[2020-08-09] MEDS: PREGABALIN 100 MG CAP PO SCH (08:51)
[2020-08-09] MEDS: busPIRone 5 MG TAB PO SCH (08:51)
[2020-08-09] MEDS: ESCITALOPRAM OXALATE 20 MG TAB PO SCH (08:51)
[2020-08-09] MEDS: ISOSORBIDE MONO EXTENDED REL 60 MG TABCR PO SCH (08:52)
[2020-08-09] MEDS: FLUTICASONE PROPIONATE NA SPR 16 GM BTL SCH (08:52)
[2020-08-09] MEDS: ISOSORBIDE MONO EXTENDED REL 30 MG TABCR PO SCH (08:52)
[2020-08-09] MEDS: FLUTICASONE/VILANTEROL 100/25MCG 14 PUFFS/INHALER INH SCH (08:52)
[2020-08-09] MEDS: PANTOprazole 40 MG TAB PO SCH (08:52)
[2020-08-09] MEDS: guaiFENesin 600 MG TABCR PO SCH (08:52)
[2020-08-09] MEDS: LIDOCAINE 5% 1 PATCH TD SCH (08:53)
[2020-08-09] MEDS: POLYETHYLENE (MIRALAX) 17 GM PACK PO SCH (08:58)
--- NOTE | 2020-08-09 11:15 | Hospitalist Progress Note ---
Date of Service August 09, 2020 Assessment & Plan (1) Intertrochanteric fracture of right hip: Present on admission with mechanical fall and right hip fracture. CT of hip showed acute, comminuted and slightly displaced intertrochanteric fracture of the right femur with basicervical fracture extension. S/P right TFN perfomed by ortho Dr. Valaedz on 08/05/20 Continue pain control Continue dressing changed Incentive spirometry Received 1 unit PRBC yesterday, Hgb 8.7 Continue PT/OT Fall precaution Acute blood loss anemia Mostly related to postop S/P 1 unit PRBC on 08/08 Hgb 8.7 today Continue monitor CBC Currently on Lovenox subq and asa for DVT px Hx of Chronic respiratory failure on 2 L oxygen all the time, history of COPD, history of asthma, history of pulmonary hypertension. Continue home inhalers and nebs p.r.n. History of CAD status post stent. Continue her statin, aspirin and beta sheridan, currently stable. History of hypertension. Continue Lopressor, Imdur. We will monitor the blood pressure. History of hyperlipidemia On statin. History of hypothyroidism On Synthroid. History of anxiety and depression. Continue her buspirone, Lexapro. History of CKD stage III. Baseline creatinine btw 1.2 to 1.4 Current creatinine of 1.1. stable Chronic diastolic CHF. On Lasix 20 mg p.o. 3 times a week. We will monitor for any volume overload. Hx of Status post TAVR Peripheral vascular disease, on aspirin and statin. GERD, on Protonix. DVT prophylaxis, Post-surgery anticoagulation as per orthopedics. Currently pt is on ASA and enoxaparin 30 daily Case discussed with ortho that recommended asa 81 BID x 2 weeks then daily for DVD px Disposition Possible discharge home today Admission and Anticipated Discharge Date Admission Date: August 04, 2020 Subjective Pt was seen and examined for follow up of fall and R hip fx, anemia, chronic resp. failure Lying in bed with no distress Pt said that she feels a little better She said that pain when moving her extremities Denies any chest pain, palpitation, dizziness and SOB Review of Systems Review of Systems: All systems reviewed & are unremarkable except as noted in Subjective Physical Exam Physical Exam: General- No acute distress Head- atraumatic Eyes- PERRL, EOMI, ENT- oropharynx clear Neck- supple, no JVD Lungs- clear to auscultation Heart- regular rhythm; no murmur Abdomen- normal bowel sounds, soft, nontender Extremities- no calf tenderness Neuro- alert, oriented x 3; PERRL, EOMI; no facial palsy; no dysarthria Skin- warm & dry Results & Data Results & Data ([facility]) Vital Signs (Past 12 Hours) Vital Signs Temp Pulse Resp BP Pulse Ox 08/09/20 07:51 36.9 C 63 16 179/68 H 92 08/08/20 23:11 36.6 C 67 18 134/63 94 (1) Intertrochanteric fracture of right hip Encounter type: initial encounter Fracture alignment: displaced Fracture type: closed Qualified Code(s): S72.141A - Displaced intertrochanteric fracture of right femur, initial encounter for closed fracture
--- NOTE | 2020-08-13 08:36 | Discharge Summary ---
Date of Service August 09, 2020 Admission HPI Per Admitting Provider CHIEF COMPLAINT: Status post fall, right hip fracture. HISTORY OF PRESENT ILLNESS: An 84-year-old female with past medical history significant for CAD status post stent, history of sick sinus syndrome, status post pacemaker, status post TAVR, chronic diastolic CHF, chronic kidney disease stage III, peripheral vascular disease, carotid stenosis bilateral, history of chronic respiratory failure on 2 liters oxygen all the time, COPD, pulmonary hypertension, peripheral artery disease, mild persistent asthma without complication, hypercholesterolemia, hypothyroidism, hyperlipidemia, GERD, fibromyalgia, osteoarthritis, chronic pain syndrome, macular degeneration of the right eye, iron deficiency anemia, history of thrombocytopenia, history of depression, anxiety disorder, history of TIA, history of right sided carotid endarterectomy, history of tobacco abuse. The patient currently , lives alone. Two daughters live close by. Comes with fall and found to have right hip fracture. The patient is somewhat hard to hear, seems to be in pain. It seems she was walking in the parking lot when she lost her balance and fell on the ground. As per patient there was a endoscopy tech close by who helped her. She denies any loss of consciousness. She says she has hiatal hernia. She has always had some abdominal discomfort. She uses oxygen all the time and she cannot walk long; she gets short of breath. Currently denies any chest pain. Currently nauseous, had some headache. Denies any earache, no runny nose, no sore throat, no cough, no abdominal pain. Normal bowel and bladder movements. No rash anywhere. Afebrile. She says her appetite is okay and she can swallow okay. Admission Exam Per Admitting Provider GENERAL: The patient is old, seems to be in pain, not in acute distress. VITAL SIGNS: Temperature 36.7, pulse 60, respiratory rate 21, blood pressure 116/67, oxygen 96% on 2 liters. HEENT: Pupils equal, round, and reactive to light. No pallor, no icterus. Oral mucosa dry. NECK: No neck masses palpable. CARDIOVASCULAR: S1, S2, regular rate and rhythm, no murmur, no gallop. RESPIRATORY SYSTEM: Normal AP diameter. No accessory muscle use. No wheezing, no crackles. ABDOMEN: Soft, bowel sounds present, nontender. No distention. CENTRAL NERVOUS SYSTEM: Alert and awake. Speech clear. No facial droop. Obeys simple commands. Moves extremities. EXTREMITIES: Right lower extremity is slightly shortened. No edema or seen. Principal Diagnosis Intertrochanteric fracture of right hip: Acute blood loss anemia Hx of Chronic respiratory failure History of CAD status post stent. History of hypertension. History of hyperlipidemia History of hypothyroidism History of anxiety and depression. History of CKD stage III. Chronic diastolic CHF. Discharge Exam General- No acute distress Head- atraumatic Eyes- PERRL, EOMI, ENT- oropharynx clear Neck- supple, no JVD Lungs- clear to auscultation Heart- regular rhythm; no murmur Abdomen- normal bowel sounds, soft, nontender Extremities- no calf tenderness Neuro- alert, oriented x 3; PERRL, EOMI; no facial palsy; no dysarthria Skin- warm & dry Discharge Data Allergies Allergy/AdvReac Type Severity Reaction Status Date / Time No Known Allergies Allergy Verified 08/04/20 18:26 Consultations 08/04/20 17:53 ED Decision to Admit Stat 08/04/20 19:04 Consult Orthopedic Surgery Routine 08/04/20 20:42 Consult Anesthesiology Routine Consult Case Management - Discharge Planning Routine 08/05/20 15:13 Consult Case Management - Discharge Planning Routine Procedures Performed Operation Date: 08/05/20 11:00 Actual Procedures p Intremedullary Seun Femur(Right) - Nelson Valadez M.D. Ordered Studies 08/04/20 16:57 CT cervical spine wo con Stat CT head/brain wo con Stat 08/04/20 19:12 CT hip RT wo con Stat 08/05/20 FL fluoroscopy <1hr Routine FL hip RT 2-3V Routine CERVICAL SPINE CT CT DOSE: 1292.63 mGy.cm HISTORY: fall eval for injury TECHNIQUE: Multiaxial CT images of the cervical spine were performed and reformatted in the sagittal and coronal plane without the use of contrast. A dose lowering technique was utilized adhering to the principles of ALARA. COMPARISON: None. FINDINGS: No fractures. No subluxation. Prevertebral soft tissues and the C1-C2 interval are intact. No pneumothorax. Moderate to severe degenerative disc disease throughout the cervical spine. IMPRESSION: No fractures within the cervical spine. ACT 112: Negative or not required by law. Electronically signed by: Osmin Robledo M.D. 08/04/2020 5:36 PM Dictated: 08/04/201730Transcribed: 08/04/201730 XR chest 1V portable HISTORY: fall eval for injury COMPARISON: Chest 08/15/2018. FINDINGS: Mild diffuse interstitial thickening which is likely chronic. The heart remains mildly enlarged. An aortic stent is noted. Left-sided dual-chamber pacemaker. No pleural effusions. No pneumothorax. No acute fractures within the visualized osseous structures. IMPRESSION: 1. Stable cardiomegaly and chronic interstitial thickening. 2. Otherwise, no acute process within the chest. ACT 112: Negative or not required by law. Electronically signed by: Osmin Robledo M.D. 08/04/2020 5:39 PM Dictated: 08/04/201736Transcribed: 08/04/[address] HEAD CT NONCONTRAST CT DOSE: HISTORY: fall eval for injury TECHNIQUE: Multiaxial CT images of the head were performed without the use of intravenous contrast. Automated exposure control was utilized for this study. A dose lowering technique was utilized adhering to the principles of ALARA. Comparison: Head CT 09/17/2015. Findings: The paranasal sinuses and mastoid air cells are clear. The calvarium and skull base are intact. There is no mass, hematoma, midline shift, acute infarct. White matter hypodensity is nonspecific but suggestive of microvascular ischemic change. The ventricles and sulci demonstrate mild age-related involutional changes. Old punctate lacunar infarcts within the bilateral basal ganglia and left thalamus. Impression: No acute intracranial abnormality. Atrophy and microvascular ischemic changes. ACT 112: Negative or not required by law. Electronically signed by: Osmin Robledo M.D. 08/04/2020 5:31 PM Dictated: 08/04/201726Transcribed: 08/04/201726 XR hip RT min 2V CLINICAL HISTORY: fall eval for injury. Right hip pain. COMPARISON STUDY: None. FINDINGS: Irregular step-off at the femoral head/neck junction likely representing acute impacted subcapital femoral neck fracture. The visualized pelvic bones appear intact. The bones are osteopenic. Right lateral hip soft tissue swelling. IMPRESSION: An irregular step-off at the right femoral head/neck junction likely representing an acute impacted subcapital femoral neck fracture. ACT 112: Negative or not required by law. Electronically signed by: Osmin Robledo M.D. 08/04/2020 5:41 PM Dictated: 08/04/20 1739Transcribed: 08/04/[address] hip RT wo con HISTORY: 84 years-old Female Right hip fracture acute right hip pain status post fall COMPARISON: Right hip radiographs 08/04/2020 TECHNIQUE: Multiple axial CT images of the right hip were obtained without the use of IV contrast. A dose lowering technique was used consistent with the principals of ALARA. FINDINGS: Colonic diverticulosis. Hysterectomy. No acute process of the imaged intrapelvic structures. There is an acute intertrochanteric comminuted fracture of the right femur with a cervical extension of the fracture. Lesser trochanteric fracture fragment is displaced medially 1.4 cm. Moderate right hip osteoarthritis without dislocation or avascular necrosis. The imaged right hemipelvis appears intact. Reactive edema with blood products surrounds the acute fracture extending into the anterior thigh outside the [id number]. IMPRESSION: 1. Acute, comminuted and slightly displaced intertrochanteric fracture of the right femur with basicervical fracture extension. 2. Moderate right hip osteoarthritis. 3. No dislocation. 3. No subcapital fracture to correlate with the questioned plain film findings. ACT 112: Negative or not required by law. The above report was generated using voice recognition software. It may contain grammatical, syntax or spelling errors. Electronically signed by: Teofilo Harris M.D. 08/05/2020 8:06 AM Dictated: 08/05/20 0802Transcribed: 08/05/20 0802 FL hip RT 2-3V HISTORY: 84 years-old Female RT TROCH NAIL acute fracture of the right hip COMPARISON: Right hip radiographs and CT 08/04/2020 TECHNIQUE: 3 spot fluoroscopic views of the right hip were obtained utilizing 67.0 seconds fluoroscopy time . FINDINGS: Acute intertrochanteric fracture of the right femur. Status post placement of a trochanteric nail with medullary seun. There is improved near anatomic alignment. Hardware appears intact. Soft tissue swelling with deep tissue air. IMPRESSION: Fluoroscopic assistance as above. Please see operative report for further details. ACT 112: Negative or not required by law. The above report was generated using voice recognition software. It may contain grammatical, syntax or spelling errors. Electronically signed by: Teofilo Harris M.D. 08/05/2020 1:29 PM Dictated: 08/05/20 1327Transcribed: 08/05/20 1327 XR hip RT min 2V HISTORY: 84 years-old Female Post-Operative implant position acute fracture of the right femur COMPARISON: Right hip radiographs 08/04/2020 TECHNIQUE: The right hip FINDINGS: Status post placement of an intratrochanteric nail with medullary seun and distal cannulated screw fixating the acute intertrochanteric fracture. There is persistent mild cortical step-off noted both superiorly and inferiorly. Lateral skin arnoldo. Expected postoperative soft tissue swelling and deep tissue air. No unexpected opaque foreign body. IMPRESSION: Status post placement of an intratrochanteric nail with medullary seun fixating the acute intertrochanteric fracture of the right femur. ACT 112: Negative or not required by law. The above report was generated using voice recognition software. It may contain grammatical, syntax or spelling errors. Electronically signed by: Teofilo Harris M.D. 08/05/2020 2:26 PM Dictated: 08/05/20 1425Transcribed: 08/05/20 1425 Hospital Course (1) Intertrochanteric fracture of right hip: Present on admission with mechanical fall and right hip fracture. CT of hip showed acute, comminuted and slightly displaced intertrochanteric fracture of the right femur with basicervical fracture extension. S/P right TFN perfomed by ortho Dr. Valadez on 08/05/20 Continue pain control Continue dressing changed Incentive spirometry Received 1 unit PRBC yesterday, Hgb 8.7 Continue PT/OT Fall precaution Acute blood loss anemia Mostly related to postop S/P 1 unit PRBC on 08/08 Hgb 8.7 today Continue monitor CBC Currently on Lovenox subq and asa for DVT px Hx of Chronic respiratory failure on 2 L oxygen all the time, history of COPD, history of asthma, history of pulmonary hypertension. Continue home inhalers and nebs p.r.n. History of CAD status post stent. Continue her statin, aspirin and beta sheridan, currently stable. History of hypertension. Continue Lopressor, Imdur. We will monitor the blood pressure. History of hyperlipidemia On statin. History of hypothyroidism On Synthroid. History of anxiety and depression. Continue her buspirone, Lexapro. History of CKD stage III. Baseline creatinine btw 1.2 to 1.4 Current creatinine of 1.1. stable Chronic diastolic CHF. On Lasix 20 mg p.o. 3 times a week. We will monitor for any volume overload. Hx of Status post TAVR Peripheral vascular disease, on aspirin and statin. GERD, on Protonix. DVT prophylaxis, Post-surgery anticoagulation as per orthopedics. Currently pt is on ASA and enoxaparin 30 daily Case discussed with ortho that recommended asa 81 BID x 2 weeks then daily for DVD px Disposition Possible discharge home today Total Time Total Time Spent Total Time Spent (In Minutes): 35 minutes Total Time Includes: Examination of the Patient, Discharge Planning, Medication Reconciliation, Communication With Other Providers and Other Discharge Plan Discharge Items Patient Disposition: [facility] Reason For Visit: R HIP FRACTURE Discharge Diagnosis: Intertrochanteric fracture of right hip: Acute blood loss anemia Hx of Chronic respiratory failure History of CAD status post stent. History of hypertension. History of hyperlipidemia History of hypothyroidism History of anxiety and depression. History of CKD stage III. Chronic diastolic CHF. Activity: Resume your previous activity Non-emergency contact: Primary Care Provider Call non-emergency contact if: you have any medication questions and your temperature is above 101 Follow-up/Referrals: Emma Strauss MD [Primary Care Provider] - Diet: Heart Healthy Ashok Attending Provider Instructions: Follow with your primary care provider once discharge from [facility] Follow up with orthopedic in 10-14 days from the date of your surgery date. (please call [phone] to schedule a follow up appointment) Continue physical and occupational therapy Continue toe touch weight bearing on your operative lower extremities for at least 6 weeks Fall precaution Check CBC in 1 week to monitor hemoglobin Ashok Sawmilling Operator Provider Instructions: [facility] DISCHARGE INSTRUCTIONS: HIP FRACTURE SELF CARE INSTRUCTIONS: A. You are to ambulate with a walker or crutches for approximately 6 weeks. B. You are TOE TOUCH WEIGHT BEARING on your operative lower extremity for at least 6 weeks. C. Wear low heeled shoes with non-slip soles D. Be sure that your floors are free of things that could trip you throw rugs, electrical cords, and small objects. Avoid wet and waxed floors, especially with crutches/walker/cane. E. Try to walk several times a day with rest periods between. F. You may shower 48 hours after surgery and get the incision area wet, but DO NOT soak or submerge incision area in water. (No baths, swimming pools, hot tubs) G. You may have a large, band-aid like dressing over your incision (Aquacel). This will remain on your incision for 7 days, and then can be removed. You CAN shower with this on. If incision is leaking through the dressing, please call the office . H. Do NOT apply soap or any ointment/lotions directly over incision. I. You may use ice as needed to operative site. SPECIAL CARE INSTRUCTIONS: VERY IMPORTANT TO READ AND REVIEW A. You may be at risk for phlebitis or blood clots. a. Wear surgical stockings (MIRNA hose) for 2 weeks after surgery to improve circulation and reduce swelling. b. Take LOVENOX 30mg SQ Daily for 4 weeks or as directed. This is your blood thinner. c. If you are on Coumadin- you will have daily/weekly blood work to monitor your levels. This will be done by either your family physician/professor of religious studies (if you are on Coumadin chronically) versus your orthopedic surgeon. Expect a phone call the day of or the day after your blood work is drawn to adjust your dose accordingly. B. There are a few signs you need to watch for after you are home. Call [facility] at [phone] if you experience any of the following: a. If you have a temperature of 101 degrees or higher. b. Sudden increase in pain in your hip not relieved by rest or pain medication. c. Any fluid or drainage from the incision; redness of the incision. d. Shortness of breath or chest pain. . C. Call your physician if: a. Temperature is greater than 101 degrees (F). b. Pain is not relieved by prescribed pain medica tions. c. Increase drainage or redness from incision. d. Unanswered questions or concerns. D. Pain Medication: a. You will be prescribed pain medication upon discharge that should last till your first post-operative appointment. b. If you experience nausea and/or skin rash, discontinue this medication and contact our office for an alternative medication. c. Caution- narcotic pain medication can cause constipation. FOLLOW UP VISIT: Please call [facility] at [phone] to schedule a follow up appointment 10-14 days from the date of your surgery date. Pending Studies at Discharge: No Stand-Alone Forms: My [facility] Skilled Items Patient informed of condition?: Yes DNR: No Discharge Level of Care: Skilled Communicable Disease: No Discharge Prognosis: Stable Lines: None Urinary Catheter: No Medications and DC Order Prescriptions: New polyethylene glycol 3350 [Miralax] 17 gram Powder In Packet 17 g PO DAILY PRN (Reason: constipation) Qty: 30 RF: 0 sennosides-docusate sodium [Senokot-S] 8.6-50 mg Tablet 1 tab PO HS PRN (Reason: constipation) Qty: 30 RF: 0 lidocaine 5 % Adhesive Patch,Medicated 1 patch transdermal QAM Qty: 5 RF: 0 enoxaparin [Lovenox] 30 mg/0.3 mL Syringe 30 mg subcut Q24H 14 Days Qty: 4.2 RF: 0 oxycodone 5 mg Tablet 5 mg PO Q8H PRN (Reason: pain) Qty: 10 RF: 0 Continued metoprolol tartrate 100 mg tablet 100 mg PO BID Qty: 180 RF: 1 pantoprazole 40 mg tablet,delayed release (DR/EC) 40 mg PO QAM Qty: 90 RF: 0 cetirizine 10 mg tablet 10 mg PO HS Qty: 90 RF: 3 furosemide 20 mg tablet 20 mg PO 3XWK RF: 0 albuterol sulfate [Ventolin HFA] 90 mcg/actuation Hfa Aerosol Inhaler 2 puff INHALATION Q4H PRN (Reason: Shortness Of Breath Or Wheezing) RF: 0 levothyroxine 25 mcg Tablet 25 mcg PO QAM RF: 0 melatonin 10 mg Capsule 10 mg PO HS RF: 0 buspirone 5 mg tablet 5 mg PO AMHS RF: 0 tizanidine 2 mg tablet 2 mg PO HS RF: 0 albuterol sulfate 2.5 mg /3 mL (0.083 %) Solution For Nebulization 2.5 mg INHALATION Q6H PRN (Reason: Shortness Of Breath,Wheezing Or Cough) RF: 0 isosorbide mononitrate 30 mg tablet extended release 24 hr 30 mg PO DAILY RF: 0 aspirin 81 mg Tablet,Delayed Release (Dr/Ec) 81 mg PO DAILY RF: 0 acetaminophen 500 mg Tablet 500 mg PO Q6H MDD 3 GMS APAP/24 HOURS PRN (Reason: Pain) RF: 0 isosorbide mononitrate 60 mg tablet extended release 24 hr 60 mg PO DAILY RF: 0 cyanocobalamin (vitamin B-12) 500 mcg tablet 500 mcg PO DAILY RF: 0 fluticasone propionate 50 mcg/actuation [place],Suspension 2 spray INTRANASAL DAILY RF: 0 escitalopram oxalate 20 mg tablet 20 mg PO DAILY RF: 0 rosuvastatin 20 mg tablet 20 mg PO HS RF: 0 cholecalciferol (vitamin D3) [Vitamin D3] 25 mcg (1,000 unit) Tablet 25 mcg PO DAILY RF: 0 budesonide-formoterol [Symbicort] 160-4.5 mcg/actuation Hfa Aerosol Inhaler 2 puff INHALATION BID RF: 0 PreserVision AREDS-2 250-90-40-1 mg capsule 1 cap PO DAILY RF: 0 pregabalin [Lyrica] 100 mg capsule 100 mg PO AMHS RF: 0 nitroglycerin [Nitrostat] 0.4 mg tablet, sublingual 0.4 mg Sublingual DIRECTED PRN (Reason: Chest Pain) RF: 0 Spiriva with HandiHaler 18 mcg Capsule, W/Inhalation Device 1 cap INHALATION DAILY RF: 0 Discontinued oxycodone-acetaminophen 5-325 mg tablet See Rx Instructions .ROUTE .COMPLEX RF: 0 Discharge Orders: Discharge Order (Routine); Ordered 08/09/20 Ordered By: Sweetie Foss Admission Data Admit Date/Time: 08/04/20 19:00 Attending Provider: Sweetie Foss Admit Provider: Simon Sue Primary Care Provider: Emma Strauss Other Providers: Arturo Richardson ; Enzo Mcneil ; Simon Sue ; Nelson Valadez ; Davy Andrew ; Nash Beltran Other Interventions: Discharge Summary Assessment (RN) Last Done: 08/09/20 12:58
== END 2020-08-09 15:04 | DRG 481 ==
LOC: ED 16:50 → SUATTDRO 19:00 → 3N 19:00